=== PATIENT | female | born 1955 | race Caucasian/White ===

== ENCOUNTER 2017-04-26 10:57 | Observation (INO) | payer OTHER ==
[~2017-04-26] VITALS: Ht 152.4 cm; Wt 83.1 kg
[2017-04-26] VITALS (9 sets, daily range): BP systolic 93–167; BP diastolic 62–94; PULSE 65–69; TEMP 36.6–36.9; O2SAT 93–98; Ht 152.4 cm; Wt 83.1 kg
[~2017-04-26 10:57] MED LIST: ALBUAER19 INH; ALPR1TAB3 PO; AMIT10TA6 PO; ASPI81TA28 PO; CARV6.252 PO; CLX20 PO; LEVE750T PO; LPT/40 PO; MRLP17 PO; PANT40TA PO; ZNTT/150 PO
[2017-04-26] MEDS ORDERED: ASPIRIN 81 MG CHEW PO STA (11:20)
--- NOTE | 2017-04-26 11:21 | EMERGENCY ROOM VISIT NOTE ---
History Report prepared by Jamar: Mukund Anderson Under the Supervision of: Dr. Phu Ko M.D. First contact with patient: 11:13 Chief Complaint: CHEST PAIN Stated Complaint: CHEST PAIN History of Present Illness The patient is a 61 year old female who presents to the Emergency Room with complaints of intermittent chest pain that started yesterday. She says that she was not doing anything at the time, and notes no exertion during the onset of pain. The patient states that there is pain and pressure. She notes that she has had pain and pressure like this before, ever since she was diagnosed with heart problems and hypertension. The patient adds that she has never had a stent placement or cardiac catheterization. She notes that she has failed both of her stress tests. Dr. Gonzalez is her superintendent general. The patient says that she takes Aspirin daily, and took one prior to arrival this morning. She denies any abdominal pain. The patient is an ex-smoker. Source of History: patient Onset: Yesterday Position: chest Symptom Intensity: history of failed stress tests Quality: pressure Timing: intermittent Associated Symptoms: No abdominal pain Note: No other associated symptoms noted. Review of Systems See HPI for pertinent positives & negatives. A total of 10 systems reviewed and were otherwise negative. Past Medical & Surgical Medical Problems: (1) Anxiety (2) Cerebral hemorrhage (3) CVA (4) Depression (5) Hematoma (6) Hypertension Nos (7) Hypertensive urgency (8) Migraine (9) Pure Hypercholesterolem (10) Seizure (11) Stroke Family History Cancer Diabetes mellitus Heart disease Hypertension Seizures Social History Smoking Status: Never Smoker Alcohol Use: none Drug Use: none Marital Status: Occupation Status: disabled Current/Historical Medications Scheduled Alprazolam (Xanax), 1 MG PO QPM Amitriptyline HCl (Amitriptyline HCl), 10 MG PO DAILY Amlodipine (Norvasc), 2.5 MG PO DAILY Aspirin (Aspirin Ec), 81 MG PO DAILY Atorvastatin (Lipitor), 80 MG PO DAILY Carvedilol (Coreg), 6.25 MG PO BID Citalopram (Citalopram Hydrobromide), 20 MG PO DAILY Citalopram Hydrobromide (Citalopram Hydrobromide), 10 MG PO DAILY Levetiracetam (Keppra), 750 MG PO BID Metformin Ext Rel (Glucophage Ext Rel), 500 MG PO DAILY Pantoprazole (Protonix), 40 MG PO DAILY Scheduled PRN Ranitidine (Zantac), 150 MG PO BID PRN for Dyspepsia Allergies Coded Allergies: Cephalosporins (Unverified Allergy, Unknown, RASH AND HIVES, 04/26/17) Sulfa Antibiotics (Verified Allergy, Unknown, "SULFA DRUGS": UNKNOWN, ) Penicillins (Unverified Adverse Reaction, Unknown, 04/26/17) Physical Exam Vital Signs Date Time Temp Pulse Resp B/P (MAP) Pulse Ox O2 Delivery O2 Flow Rate FiO2 04/26/17 13:58 61 18 157/95 98 Room Air 04/26/17 12:51 69 18 150/95 94 Room Air 04/26/17 12:00 63 16 139/92 93 Room Air 04/26/17 11:51 62 16 158/97 93 Room Air 04/26/17 11:32 74 20 162/92 94 Room Air 04/26/17 11:32 95 Room Air 04/26/17 11:21 67 04/26/17 11:04 94 Room Air 04/26/17 11:04 36.5 63 18 199/101 94 Room Air Physical Exam GENERAL: Patient is a healthy-appearing well-nourished 61 year old female. HEAD: Normocephalic atraumatic EYES: Ocular movements intact pupils equal and react to light OROPHARYNX mucous membranes are moist no exudates present no erythema or edema present NECK: Supple no nuchal rigidity CHEST: Good equal expansion LUNGS: Clear and equal to auscultation CARDIAC: Normal S1 and S2 ABDOMEN: Soft nontender no guarding BACK: No CVA tenderness EXTREMITIES: No pain upon palpation normal muscle strength in all groups no clubbing cyanosis or edema NEURO: Patient is following commands and answering questions appropriately. Alert and oriented x3 Cranial Nerves 2-12 grossly intact Medical Decision & Procedures ER Provider Diagnostic Interpretation: Radiology results as stated below per my review and radiologist interpretation: CHEST ONE VIEW PORTABLE HISTORY: Atypical CHEST PAIN COMPARISON: Chest 02/21/2016. FINDINGS: The lungs are clear. Cardiac silhouette is normal in size. No pleural effusions. No pneumothorax. IMPRESSION: No acute process. Electronically signed by: Beto Eckert M.D. 04/26/2017 12:22 PM Dictated Date/Time: 04/26/2017 12:22 PM CHEST CTA for PULMONARY ARTERIES CT DOSE: 458.86 mGy.cm HISTORY: Atypical chest pain. TECHNIQUE: Multiaxial CT images of the chest were performed following the intravenous administration of contrast to evaluate the pulmonary arteries. Maximal intensity projection images were also obtained. A dose lowering technique was utilized adhering to the principles of ALARA. COMPARISON STUDY: None. FINDINGS: The visualized liver, spleen, and adrenal glands are unremarkable. No pleural or pericardial effusions. 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 No mediastinal or hilar lymphadenopathy. The heart is normal in size. No acute fractures within the visualized osseous structures. No pneumothorax. The central airways are patent. A 4 mm nodule within the right lower lobe on image 54. Otherwise, the lungs are clear. Normal caliber thoracic aorta with no evidence for dissection. No filling defects seen within the pulmonary arteries to suggest pulmonary embolus. IMPRESSION: 1. No evidence for pulmonary embolus. 2. A 4 mm indeterminate pulmonary nodule within the right lower lobe. Please refer to the chart below for recommended follow-up. Please refer to below summary of Fleischner criteria recommendations for follow-up of incidental CT nodules (Jie Rios, Guidelines for management of small pulmonary nodules detected on CT scans: A statement from the Fleischner Society, Radiology 237: [phone].) SOLID NODULES Solitary nodule size: <6 mm * Low risk patients: no follow-up needed * high risk patients: optional CT at 12 months Solitary nodule size: 6-8 mm * Low risk patients: follow-up at 6-12 months, then consider further follow-up at 18-24 months * high risk patients: initial follow-up CT at 6-12 months and then at 18-24 months if no change Solitary nodule size: >8 mm * either low or high risk patients - consider follow-up CT at 3 months, and/or CT-PET, and/or biopsy Multiple nodules size: <6 mm * Low risk patients: no routine follow-up * high risk patients: optional CT at 12 months Multiple nodules size: 6-8 mm * Low risk patients: follow-up at 3-6 months, then consider further follow-up at 18-24 months * high risk patients: follow-up at 3-6 months, then at 18-24 months if no change Multiple nodules size: >8 mm * Low risk patients: follow-up at 3-6 months, then consider further follow-up at 18-24 months * high risk patients: follow-up at 3-6 months, then at 18-24 months if no change Note: newly detected indeterminate nodule in persons 35 years of age or older. * Low risk patients: minimal or absent history of smoking and/or other known risk factors * high risk patients: history of smoking or of other known risk factors (e.g. first degree relative with lung cancer, or exposure to asbestos, radon, uranium) * if a nodule up to 8 mm is partly solid or is ground glass further follow-up is required after 24 months to exclude possible slow growing adenocarcinoma (DANNI) SUBSOLID NODULES Solitary pure ground-glass nodule * nodule size <6 mm - no CT follow-up required * nodule size >=6 mm - follow-up CT at 6-12 months, then every 2 years until 5 years Solitary part-solid nodule * nodule size <6 mm - no CT follow-up required * nodule size >=6 mm - follow-up CT at 3-6 months. If unchanged, and solid component remains <6 mm, then annual follow-up for 5 years Multiple subsolid nodules * nodule size <6 mm - follow-up CT at 3-6 months, consider further follow-up at 2 and 4 years if stable * nodule size >=6 mm - follow-up CT at 3-6 months, subsequent management based on the most suspicious nodule(s) Electronically signed by: Beto Eckert M.D. 04/26/2017 12:53 PM Dictated Date/Time: 04/26/2017 12:48 PM Laboratory Results 04/26/17 11:41 Red Blood Count 4.77, Mean Corpuscular Volume 90.6, Mean Corpuscular Hemoglobin 29.1, Mean Corpuscular Hemoglobin Concent 32.2, Mean Platelet Volume 10.7, Neutrophils (%) (Auto) 60.1, Lymphocytes (%) (Auto) 30.4, Monocytes (%) (Auto) 6.7, Eosinophils (%) (Auto) 2.2, Basophils (%) (Auto) 0.4, Neutrophils # (Auto) 5.57, Lymphocytes # (Auto) 2.82, Monocytes # (Auto) 0.62, Eosinophils # (Auto) 0.20, Basophils # (Auto) 0.04 04/26/17 11:41 Test 04/26/17 11:41 04/26/17 11:50 White Blood Count 9.27 K/uL (4.8-10.8) Red Blood Count 4.77 M/uL (4.2-5.4) Hemoglobin 13.9 g/dL (12.0-16.0) Hematocrit 43.2 % (37-47) Mean Corpuscular Volume 90.6 fL (80-100) Mean Corpuscular Hemoglobin 29.1 pg (25-34) Mean Corpuscular Hemoglobin Concent 32.2 g/dl (32-36) Platelet Count 274 K/uL (130-400) Mean Platelet Volume 10.7 fL (7.4-10.4) Neutrophils (%) (Auto) 60.1 % Lymphocytes (%) (Auto) 30.4 % Monocytes (%) (Auto) 6.7 % Eosinophils (%) (Auto) 2.2 % Basophils (%) (Auto) 0.4 % Neutrophils # (Auto) 5.57 K/uL (1.4-6.5) Lymphocytes # (Auto) 2.82 K/uL (1.2-3.4) Monocytes # (Auto) 0.62 K/uL (0.11-0.59) Eosinophils # (Auto) 0.20 K/uL (0-0.5) Basophils # (Auto) 0.04 K/uL (0-0.2) RDW Standard Deviation 43.0 fL (36.4-46.3) RDW Coefficient of Variation 13.0 % (11.5-14.5) Immature Granulocyte % (Auto) 0.2 % Immature Granulocyte # (Auto) 0.02 K/uL (0.00-0.02) Est Creatinine Clear Calc Drug Dose 67.1 ml/min Estimated GFR () 87.0 Estimated GFR (Non- 75.0 BUN/Creatinine Ratio 15.3 (10-20) Calcium Level 9.0 mg/dl (8.5-10.1) Total Bilirubin 0.4 mg/dl (0.2-1) Direct Bilirubin < 0.1 mg/dl (0-0.2) Aspartate Amino Transf (AST/SGOT) 21 U/L (15-37) Alanine Aminotransferase (ALT/SGPT) 35 U/L (12-78) Alkaline Phosphatase 186 U/L (45-117) Total Creatine Kinase 61 U/L (26-192) Creatine Kinase MB < 0.5 ng/ml (0.5-3.6) Creatine Kinase MB Ratio (0-3.0) Troponin I < 0.015 ng/ml (0-0.045) Total Protein 8.5 gm/dl (6.4-8.2) Albumin 3.6 gm/dl (3.4-5.0) Lipase 159 U/L (73-393) Bedside Hemoglobin 14.3 g/dl (12.0-16.0) Bedside Hematocrit 42 % (37-47) Bedside D-Dimer > 450 ng/mlFEU (0-450) Bedside Sodium 140 mEq/L (135-144) Bedside Potassium 4.1 mEq/L (3.3-5.0) Bedside Chloride 103 mEq/L (101-112) Bedside Total CO2 28 mEq/l (24-31) Anion Gap 14.0 mmol/L (16-25) Bedside Blood Urea Nitrogen 13 mg/dl (7-18) Bedside Creatinine 0.8 mg/dl (0.6-1.3) Bedside Glucose (other) 97 mg/dl (70-99) Bedside Ionized Calcium (Beena) 1.14 mmol/l (1.12-1.32) Labs reviewed by ED physician. Medications Administered Medications (Trade) Dose Ordered Sig/Gay Route Start Time Stop Time Status Last Admin Dose Admin Nitroglycerin (Nitrostat Tab) 0.4 mg Q5M PRN SL 04/26/17 11:30 05/26/17 11:29 04/26/17 11:50 0.4 MG Aspirin (Aspirin Chew) 324 mg NOW STAT PO 04/26/17 11:20 04/26/17 11:23 DC 04/26/17 11:31 324 MG Nitroglycerin (Nitroglycerin 2% Oint) 1 inch Postcron-MED ONCE .ROUTE 04/26/17 11:58 04/26/17 11:59 DC 04/26/17 12:19 1 INCH ECG Indication: chest pain Rate (beats per minute): 61 Rhythm: sinus rhythm Findings: 1st degree AV block, T-wave inversion (Anterior) ED Course 1114: Past medical records reviewed. The patient was evaluated in room C3. A complete history and physical examination was performed. 1120: Ordered Aspirin Chew 324 mg PO, Nitrostat Tab 0.4 mg SL PRN. 1156: Ordered Nitroglycerin 2% Oint 1 inch EXT. 1358: Upon reexamination the patient is resting. I discussed results and treatment plan with the patient. She verbalizes agreement and understanding. The patient will be evaluated for further management. 1400: I discussed the patient's case with Dr. Dr. David Bello mobile home installer, he has agreed to evaluate the patient for further management and care. Medical Decision Differential diagnosis: Etiologies such as cardiac ischemia, aortic dissection, pulmonary embolism, pneumonia, pneumothorax, musculoskeletal, infections, pericarditis, myocarditis , esophageal rupture, gastrointestinal, as well as others were entertained. This is a 61-year-old female who presents emergency department complaining of chest pain as well as hypertension. The patient's blood pressure is in excess of 200 systolically. For this reason she was given nitroglycerin as well as aspirin in the emergency department. Repeat examination revealed improvement patient's symptoms. Her she has a normal CK-MB troponin as well as EKG. I do feel the patient can be admitted to the hospitalist service. She was given Nitropaste. Patient was in agreement with the treatment plan. Medication Reconcilliation Current Medication List: was personally reviewed by me Blood Pressure Screening Patient's blood pressure: Elevated blood pressure Blood pressure disposition: Elevated BP felt to be situational Consults Time Called: 135 Consulting Physician: Dr. David Bello mobile home installer Returned Call: 1400 I discussed the patient's case with Dr. Dr. David Bello mobile home installer, he has agreed to evaluate the patient for further management and care. Impression Primary Impression: Chest pain Additional Impression: Hypertensive urgency Scribe Attestation The scribe's documentation has been prepared under my direction and personally reviewed by me in its entirety. I confirm that the note above accurately reflects all work, treatment, procedures, and medical decision making performed by me. Departure Information Dispostion Being Evaluated By Hospitalist Referrals Anthony Garay III, M.D. (PCP) Patient Instructions My [facility] Problem Qualifiers Primary Impression: Chest pain Chest pain type: unspecified Qualified Codes: R07.9 - Chest pain, unspecified
[2017-04-26] MEDS ORDERED: AMT10 PO ×2 (11:25→15:22)
[2017-04-26] MEDS ORDERED: ATOR-26 PO (11:25)
[2017-04-26] MEDS ORDERED: CITA10TA4 PO (11:25)
[2017-04-26] MEDS ORDERED: AMLO2.5T PO (11:25)
[2017-04-26] MEDS ORDERED: METFTAB PO (11:25)
[2017-04-26] MEDS ORDERED: CLX20 PO (11:25)
[2017-04-26] MEDS: NITROGLYCERIN 0.4 MG SL PER TAB CHARGE SL PRN ×2 (11:32→11:50)
[2017-04-26] MEDS ORDERED: NITROGLYCERIN OINT 2% 1GM PACKET EXT STA (11:56)
[2017-04-26] MEDS ORDERED: NITROGLYCERIN OINT 2% 1GM PACKET ONE (11:58)
[2017-04-26 12:03] LABS: BASO % 0.4 %; BASO ABS # 0.04 K/uL (0-0.2); COMPLETE YES; EOS % 2.2 %; HEMATOCRIT 43.2 % (37-47); IG% 0.2 %; LYMPH % 30.4 %; LYMPH ABS # 2.82 K/uL (1.2-3.4); MEAN CELL VOLUME 90.6 fL (80-100); MEAN CORPUSCULAR HEMOGLOBIN 29.1 pg (25-34); MEAN CORPUSCULAR HGB CONC 32.2 g/dl (32-36); MEAN PLATELET VOLUME 10.7 fL (7.4-10.4); MONO % 6.7 %; NEUT % 60.1 %; PLATELET COUNT 274 K/uL (130-400); RED BLOOD COUNT 4.77 M/uL (4.2-5.4); WHITE BLOOD COUNT 9.27 K/uL (4.8-10.8)
[2017-04-26 12:05] LABS: ISTAT CREATININE 0.8 mg/dl (0.6-1.3); ISTAT HEMOGLOBIN 14.3 g/dl (12.0-16.0); ISTAT IONIZED CALCIUM 1.14 mmol/l (1.12-1.32)
[2017-04-26 12:11] LABS: ALT/SGPT 35 U/L (12-78); AST/SGOT 21 U/L (15-37); BLOOD UREA NITROGEN 13 mg/dl (7-18); BUN/CREATININE RATIO 15.3 (10-20); CARBON DIOXIDE 29 mmol/L (21-32); CHLORIDE 103 mmol/L (98-107); CREATININE 0.83 mg/dl (0.60-1.20); GLUCOSE 100 mg/dl (70-99); SODIUM 139 mmol/L (136-145)
[2017-04-26 12:16] LABS: ALKALINE PHOSPHATASE 186 U/L (45-117)
--- NOTE | 2017-04-26 12:24 | DIAGNOSTIC IMAGING REPORT ---
CHEST ONE VIEW PORTABLE HISTORY: Atypical CHEST PAIN COMPARISON: Chest 02/21/2016. FINDINGS: The lungs are clear. Cardiac silhouette is normal in size. No pleural effusions. No pneumothorax. IMPRESSION: No acute process. Electronically signed by: Beto Eckert M.D. 04/26/2017 12:22 PM Dictated Date/Time: 04/26/2017 12:22 PM
[2017-04-26] MEDS ORDERED: OPTIRAY 320 IV PRN (12:30)
--- NOTE | 2017-04-26 12:55 | DIAGNOSTIC IMAGING REPORT ---
CHEST CTA for PULMONARY ARTERIES CT DOSE: 458.86 mGy.cm HISTORY: Atypical chest pain. TECHNIQUE: Multiaxial CT images of the chest were performed following the intravenous administration of contrast to evaluate the pulmonary arteries. Maximal intensity projection images were also obtained. A dose lowering technique was utilized adhering to the principles of ALARA. COMPARISON STUDY: None. FINDINGS: The visualized liver, spleen, and adrenal glands are unremarkable. No pleural or pericardial effusions. 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 No mediastinal or hilar lymphadenopathy. The heart is normal in size. No acute fractures within the visualized osseous structures. No pneumothorax. The central airways are patent. A 4 mm nodule within the right lower lobe on image 54. Otherwise, the lungs are clear. Normal caliber thoracic aorta with no evidence for dissection. No filling defects seen within the pulmonary arteries to suggest pulmonary embolus. IMPRESSION: 1. No evidence for pulmonary embolus. 2. A 4 mm indeterminate pulmonary nodule within the right lower lobe. Please refer to the chart below for recommended follow-up. Please refer to below summary of Fleischner criteria recommendations for follow-up of incidental CT nodules (Jie Rios, Guidelines for management of small pulmonary nodules detected on CT scans: A statement from the Fleischner Society, Radiology 237: [phone].) SOLID NODULES Solitary nodule size: <6 mm * Low risk patients: no follow-up needed * high risk patients: optional CT at 12 months Solitary nodule size: 6-8 mm * Low risk patients: follow-up at 6-12 months, then consider further follow-up at 18-24 months * high risk patients: initial follow-up CT at 6-12 months and then at 18-24 months if no change Solitary nodule size: >8 mm * either low or high risk patients - consider follow-up CT at 3 months, and/or CT-PET, and/or biopsy Multiple nodules size: <6 mm * Low risk patients: no routine follow-up * high risk patients: optional CT at 12 months Multiple nodules size: 6-8 mm * Low risk patients: follow-up at 3-6 months, then consider further follow-up at 18-24 months * high risk patients: follow-up at 3-6 months, then at 18-24 months if no change Multiple nodules size: >8 mm * Low risk patients: follow-up at 3-6 months, then consider further follow-up at 18-24 months * high risk patients: follow-up at 3-6 months, then at 18-24 months if no change Note: newly detected indeterminate nodule in persons 35 years of age or older. * Low risk patients: minimal or absent history of smoking and/or other known risk factors * high risk patients: history of smoking or of other known risk factors (e.g. first degree relative with lung cancer, or exposure to asbestos, radon, uranium) * if a nodule up to 8 mm is partly solid or is ground glass further follow-up is required after 24 months to exclude possible slow growing adenocarcinoma (DANNI) SUBSOLID NODULES Solitary pure ground-glass nodule * nodule size <6 mm - no CT follow-up required * nodule size >=6 mm - follow-up CT at 6-12 months, then every 2 years until 5 years Solitary part-solid nodule * nodule size <6 mm - no CT follow-up required * nodule size >=6 mm - follow-up CT at 3-6 months. If unchanged, and solid component remains <6 mm, then annual follow-up for 5 years Multiple subsolid nodules * nodule size <6 mm - follow-up CT at 3-6 months, consider further follow-up at 2 and 4 years if stable * nodule size >=6 mm - follow-up CT at 3-6 months, subsequent management based on the most suspicious nodule(s) Electronically signed by: Beto Eckert M.D. 04/26/2017 12:53 PM Dictated Date/Time: 04/26/2017 12:48 PM
[2017-04-26] MEDS ORDERED: ONDANSETRON INJ 2 MG/ML 2 ML VIAL IV PRN (15:00)
[2017-04-26] MEDS ORDERED: ALUMINUM/MAGNESIUM/SIMETH (MAALOX MAX) 30 ML UDC PO PRN (15:00)
[2017-04-26] MEDS ORDERED: RANITIDINE HCL 150 MG TAB PO PRN (15:00)
[2017-04-26] MEDS ORDERED: MoRPHine SULFATE 2 MG/ML CARP IV PRN (15:00)
[2017-04-26] MEDS ORDERED: ACETAMINOPHEN 325 MG TAB PO PRN (15:00)
[2017-04-26] MEDS ORDERED: NITROGLYCERIN 0.4 MG SL PER TAB CHARGE SL PRN (15:00)
[2017-04-26] MEDS ORDERED: LORA10TA5 PO (15:22)
[2017-04-26] MEDS ORDERED: ALPR1TAB3 PO (15:22)
[2017-04-26] MEDS ORDERED: VNTHFA/IN INH (15:22)
[2017-04-26] MEDS ORDERED: GLUCAGON FOR INJ 1 MG VIAL SQ PRN (15:30)
[2017-04-26] MEDS ORDERED: GLUCOSE 40% GEL 15 GM TUBE PO PRN (15:30)
[2017-04-26] MEDS ORDERED: ALPRAZOLAM 0.5 MG TAB PO PRN (15:30)
[2017-04-26] MEDS ORDERED: GLUCOSE 10 TABS/TUBE PO PRN (15:30)
[2017-04-26] MEDS ORDERED: ALBUTEROL HFA 8 GM INHALER INH PRN (15:30)
[2017-04-26] MEDS ORDERED: DEXTROSE 50% 50 ML SYR IV PRN (15:30)
--- NOTE | 2017-04-26 16:01 | HISTORY & PHYSICAL EXAMINATION ---
DATE OF ADMISSION: 04/26/2017 CHIEF COMPLAINT: Chest pain. HISTORY OF PRESENT ILLNESS: This is a 61-year-old female with past medical history significant for history of hyperlipidemia, tobacco abuse, status post carotid endarterectomy and post-procedure was complicated by left parietotemporal internal hemorrhage that was likely due to reperfusion injury and underwent left temporoparietal craniotomy, evacuation of hematoma and microdissection at that time and postprocedure, she had developed seizures and she is on medications for seizures at this time. Past medical history is also significant for GERD, depression with anxiety, peripheral vascular disease with claudication, obstructive sleep apnea on CPAP, acute gout, type 2 diabetes, currently presents with chest pain. The patient says since yesterday she is getting on and off chest pressure like feeling, squeezing like feeling, about 7/8 in severity, no radiation to hand or neck or shoulder, no association with sweating or nausea or dizziness. It was on and off and even in the morning when she woke up she again had this chest squeezing pressure like feeling about a 5/10 in severity. At that time, she decided to come to the ER. Currently, patient is on nitro paste, symptoms have almost gone, hemodynamically stable. Denies any headaches. No blurred visions. No runny nose. No sore throat, no difficulty swallowing. No shortness of breath, no cough, no fever, no chills, no abdominal pain. No skin rash. Normal bowel and bladder movements. Appetite is okay. Ambulatory status is fine and the patient denies any chest pain or shortness of breath while she is ambulating or climbing steps. The patient had similar kind of chest pressure last year and thought to be from hypertensive urgency and she underwent stress echocardiogram as outpatient, which she could not complete as could not reach the target heart rate. ALLERGIES: PENICILLIN, SULFA ANTIBIOTICS, AND CEPHALOSPORINS. PAST MEDICAL HISTORY: As mentioned above. PAST SURGICAL HISTORY: C-sections, biopsy of the breast, colonoscopy with polypectomy, dental surgeries, left parietal and temporal hemorrhage evacuation in 2010, tonsillectomy, left carotid endarterectomy in September 2010 with patch, vaginal hysterectomy in 1992. MEDICATIONS: The patient currently on metformin XR 500 mg p.o. daily, Coreg 6.25 mg p.o. b.i.d., aspirin 81 mg p.o. daily, citalopram 20 mg p.o. daily, amlodipine 2.5 mg p.o. daily, Xanax 1 mg p.o. at bedtime p.r.n., Protonix 40 mg p.o. daily, Zantac 150 mg p.o. b.i.d. p.r.n., amitriptyline 20 mg p.o. at bedtime, Keppra 750 mg p.o. b.i.d., Lipitor 80 mg p.o. daily, albuterol 2 puffs 4 times daily, Claritin 10 mg p.o. daily, and MiraLax as needed. FAMILY HISTORY: Significant for mother had dementia. Father has diabetes. SOCIAL HISTORY: Former smoker, quit in 2010, prior to that smoked 1 pack a day for 21 years. No alcohol use. No drug use. . REVIEW OF SYMPTOMS: As per HPI. Rest of systems negative. PHYSICAL EXAMINATION: GENERAL: The patient is of moderate build, not in distress. VITAL SIGNS: Temperature 36.5, pulse 61, respiratory rate 18, blood pressure 157/95, oxygen 98% on room air. HEENT: No pallor, no icterus. Pupils equal, round and reactive to light. NECK: No JVD, no neck masses, no carotid bruits. CARDIOVASCULAR: S1, S2 heard, regular rate and rhythm, no murmur, no gallop. RESPIRATORY SYSTEM: Clear to auscultation bilaterally. No wheezing, no crackles. ABDOMEN: Soft, bowel sounds present. Nontender. No distention. CENTRAL NERVOUS SYSTEM: Cranial nerves II-XII grossly intact, nonfocal. EXTREMITIES: No edema, no erythema. LABORATORY DATA: Sodium 139, potassium 4, chloride 103, bicarbonate 29, BUN 13, creatinine 0.8, serum glucose 100, calcium 9. Total bilirubin 0.4, direct bilirubin less than 0.1, AST 21, ALT 35, alkaline phosphatase 186, total creatinine kinase 61. Troponin 1 less than 0.015. Lipase 159. Point of care D-dimer greater than 450. WBC 9.2, hemoglobin 13.9, hematocrit 43.2, and platelets 274. IMAGING DATA: CT of the chest - no evidence of pulmonary embolus, a 4 mm indeterminate pulmonary nodule within the right lower lobe. EKG unavailable at this time. ASSESSMENT AND PLAN: This is a 61-year-old female who presents with chest pressure. 1. Chest pressure. Significant risk factors with peripheral vascular disease, hypertension and diabetes and age. Initial troponin negative. We will get an EKG. Will follow the serial cardiac enzymes, echocardiogram and cardiology consult. Close monitor in the tele floor. 2. History of diabetes, on metformin which we will hold. We will place on insulin sliding scale. Follow hemoglobin A1c levels. 3. Hypertension. The patient was having elevated blood pressure in the ER. With the nitro paste, blood pressure is controlled. We will continue her home medication of amlodipine and Coreg and continue nitro paste for now and monitor the blood pressure and adjust medications as needed. 4. History of anxiety and depression. Continue citalopram and Xanax p.r.n. 5. Gastroesophageal reflux disease. Continue Protonix and Zantac. 6. History of epilepsy. Continue Keppra. 7. Hyperlipidemia. Continue statin. 8. Obstructive sleep apnea. Continue CPAP. 9. Deep vein thrombosis prophylaxis, SCDs for now. 10. Disposition: Observation on tele floor. Expect to discharge home and follow with her family doctor. Level 1 full code. MTDD
[2017-04-26] MEDS: INSULIN ASPART 100 UNITS/ML 3 ML PEN SC SCH ×2 (16:35→20:29)
[2017-04-26] MEDS: NITROGLYCERIN OINT 2% 1GM PACKET EXT SCH ×2 (18:27→23:29)
[2017-04-26] MEDS ORDERED: IV FLUIDS COMPLETED PRN (18:30)
[2017-04-26] MEDS: CARVEDILOL 6.25 MG TAB PO SCH (20:28)
[2017-04-26] MEDS: LEVETIRACETAM 250 MG TAB PO SCH (20:28)
[2017-04-27 03:49] VITALS: BP 98/64; PULSE 62; TEMP 36.7; O2SAT 92
[2017-04-27] MEDS: NITROGLYCERIN OINT 2% 1GM PACKET EXT SCH (06:37)
[2017-04-27 07:42] LABS: BASO % 0.4 %; BASO ABS # 0.04 K/uL (0-0.2); COMPLETE YES; EOS % 2.3 %; HEMATOCRIT 41.7 % (37-47); IG% 0.2 %; LYMPH % 29.5 %; LYMPH ABS # 2.77 K/uL (1.2-3.4); MEAN CELL VOLUME 90.5 fL (80-100); MEAN CORPUSCULAR HEMOGLOBIN 28.6 pg (25-34); MEAN CORPUSCULAR HGB CONC 31.7 g/dl (32-36); MEAN PLATELET VOLUME 10.6 fL (7.4-10.4); MONO % 6.8 %; NEUT % 60.8 %; PLATELET COUNT 263 K/uL (130-400); RED BLOOD COUNT 4.61 M/uL (4.2-5.4); WHITE BLOOD COUNT 9.38 K/uL (4.8-10.8)
[2017-04-27 07:58] VITALS: BP 113/70; PULSE 63; TEMP 36.6; O2SAT 92
[2017-04-27 08:15] LABS: BUN/CREATININE RATIO 17.9 (10-20); CALCIUM 9.4 mg/dl (8.5-10.1); CREATININE 0.81 mg/dl (0.60-1.20); MAGNESIUM 2.3 mg/dl (1.8-2.4); POTASSIUM 3.8 mmol/L (3.5-5.1)
[2017-04-27 08:18] LABS: CHOLESTEROL/HDL RATIO 4.2
[2017-04-27 08:21] LABS: ESTIMATED AVERAGE GLUCOSE 134 mg/dl; HA1C FLAG Normal (Normal)
[2017-04-27] MEDS: INSULIN ASPART 100 UNITS/ML 3 ML PEN SC SCH ×2 (08:26→11:46)
[2017-04-27] MEDS: LEVETIRACETAM 250 MG TAB PO SCH (08:27)
[2017-04-27] MEDS: CARVEDILOL 6.25 MG TAB PO SCH (08:28)
[2017-04-27] MEDS ORDERED: AMLODIPINE BESYLATE 5 MG TAB PO SCH (09:00)
[2017-04-27] MEDS ORDERED: LORATADINE 10 MG TAB PO SCH (09:00)
[2017-04-27] MEDS ORDERED: PANTOprazole SOD 40 MG TAB PO SCH (09:00)
[2017-04-27] MEDS ORDERED: ASPIRIN 81 MG ECTAB PO SCH (09:00)
[2017-04-27] MEDS ORDERED: AMITRIPTYLINE HCL 10 MG TAB PO SCH (09:00)
[2017-04-27] MEDS ORDERED: ATORVASTATIN 40 MG TAB PO SCH (09:00)
[2017-04-27] MEDS ORDERED: CITALOPRAM 20 MG TAB PO SCH (09:00)
--- NOTE | 2017-04-27 09:11 | ECHOCARDIOGRAM REPORT ---
*NOTICE TO RECEIVING [employer] This information is strictly Confidential and protected under [place] law. [place] law prohibits you from making any further disclosure of this information unless further disclosure is expressly permitted by the written consent of the person to whom it pertains or is authorized by law. A general authorization for the release of medical or other information is not sufficient for this purpose. Hospital accepts no responsibility if the information is made available to any other person, INCLUDING THE PATIENT. Interpretation Summary * Name: GUIDO FLOWERS Study Date: 04/27/2017 06:08 AM BP: 98/64 mmHg * Patient Location: C.2T\S\E218\S\1 HR: 65 * : 1955 (M/d/yyyy) Gender: Female Height: 60 in * Age: 61 yrs Ethnicity: [place] Weight: 187 lb * Ordering Physician: Devan Hernandez * Referring Physician: Self, Referred * Performed By: Raysa De Santiago [facility] * * Reason For Study: CHEST PAIN * BSA: 1.8 m2 * -- Conclusions -- * Aortic valve sclerosis mild, without significant aortic valvular stenosis. * The left ventricular wall motion is normal. * The LV Ejection Fraction = 60-65%. * There is mild concentric left ventricular hypertrophy. * Grade I diastolic dysfunction, (abnormal relaxation pattern). * There is no significant valvular heart disease. Procedure Details * A complete two-dimensional transthoracic echocardiogram was performed (2D, M-mode, Doppler and color flow Doppler). * The study was technically difficult. * A contrast injection of Definity was performed to improve assessment of LV function. * Contrast was injected into an intravenous site in the left arm. * One vial of Definity ultrasound contrast was diluted in normal saline to a total volume of 10 ml. A total of '2' ml of solution was administered during imaging. * Lot # [id number] of Definity utilized for procedure. * Expiration date MAY 18. * The attending nurse who injected the contrast agent was LEIA ARRINGTON RN. Left Ventricle * The left ventricle is normal in size. * There is mild concentric left ventricular hypertrophy. * Left ventricular systolic function is normal. * Ejection Fraction = 60-65%. * The left ventricular wall motion is normal. Right Ventricle * The right ventricle is normal size. * The right ventricular systolic function is normal as assessed by tricuspid annular plane systolic excursion (TAPSE) (normal >1.5 cm). Atria * The left atrial size is normal. * Right atrial size is normal. * There is no evidence of atrial septal defect, but resolution does not allow assessment for a patent foramen ovale. Mitral Valve * The mitral valve is normal. * There is no mitral valve stenosis. * Significant mitral regurgitation is absent. Tricuspid Valve * The tricuspid valve is normal. * There is no tricuspid stenosis. * Significant tricuspid regurgitation is absent. * Doppler findings do not suggest pulmonary hypertension. Aortic Valve * The aortic valve is trileaflet. * Aortic valve sclerosis mild, without significant aortic valvular stenosis. * Aortic stenosis is absent. * There is no significant aortic regurgitation. Pulmonic Valve * The pulmonary valve is not well seen, but the Doppler examination is normal without significant regurgitation or stenosis. Great Vessels * The aortic root and proximal ascending aorta are normal sized. Pericardium/Pleural * There is no pericardial effusion. Great Vessels * Normal inferior vena cava diameter and respiratory variation suggests normal central venous pressure. Left Ventricular Diastolic Function * Grade I diastolic dysfunction, (abnormal relaxation pattern). MMode 2D Measurements and Calculations IVSd 1.3 cm IVSs 1.5 cm LVIDd 4.7 cm LVIDs 3.1 cm LVPWd 1.2 cm LVPWs 1.2 cm IVS/LVPW 1.1 FS 32.5 % EDV(Teich) 100.4 ml ESV(Teich) 39.2 ml EF(Teich) 60.9 % EDV(cubed) 101.2 ml ESV(cubed) 31.1 ml EF(cubed) 69.3 % % IVS thick 15.2 % % LVPW thick 3.1 % LV mass(C)d 224.3 grams LV mass(C)dI 123.6 grams/m\S\2 LV mass(C)s 145.9 grams LV mass(C)sI 80.4 grams/m\S\2 SV(Teich) 61.1 ml SI(Teich) 33.7 ml/m\S\2 SV(cubed) 70.1 ml SI(cubed) 38.7 ml/m\S\2 Ao root diam 2.7 cm Ao root area 5.8 cm\S\2 LA dimension 2.9 cm LA/Ao 1.1 LVOT diam 2.0 cm LVOT area 3.1 cm\S\2 LVAd ap4 27.0 cm\S\2 LVLd ap4 6.9 cm EDV(MOD-sp4) 86.7 ml EDV(sp4-el) 89.5 ml LVAs ap4 15.9 cm\S\2 LVLs ap4 5.7 cm ESV(MOD-sp4) 36.2 ml ESV(sp4-el) 38.2 ml EF(MOD-sp4) 58.3 % EF(sp4-el) 57.3 % LVAd ap2 16.7 cm\S\2 LVLd ap2 6.4 cm EDV(MOD-sp2) 35.9 ml EDV(sp2-el) 37.4 ml LVAs ap2 8.1 cm\S\2 LVLs ap2 4.7 cm ESV(MOD-sp2) 13.5 ml ESV(sp2-el) 12.0 ml EF(MOD-sp2) 62.5 % EF(sp2-el) 67.9 % LVLd %diff -8.97 % EDV(MOD-bp) 56.4 ml LVLs %diff -20.58 % ESV(MOD-bp) 23.0 ml EF(MOD-bp) 59.2 % SV(MOD-sp4) 50.5 ml SI(MOD-sp4) 27.9 ml/m\S\2 SV(MOD-sp2) 22.4 ml SI(MOD-sp2) 12.4 ml/m\S\2 SV(MOD-bp) 33.4 ml SI(MOD-bp) 18.4 ml/m\S\2 SV(sp4-el) 51.3 ml SI(sp4-el) 28.3 ml/m\S\2 SV(sp2-el) 25.4 ml SI(sp2-el) 14.0 ml/m\S\2 Doppler Measurements and Calculations MV E max laquita 51.8 cm/sec MV A max laquita 80.9 cm/sec MV E/A 0.64 MV P1/2t max laquita 65.6 cm/sec MV P1/2t 72.0 msec MVA(P1/2t) 3.1 cm\S\2 MV dec slope 266.7 cm/sec\S\2 MV dec time 0.25 sec Ao V2 max 131.1 cm/sec Ao max PG 6.9 mmHg Ao max PG (full) 1.1 mmHg CARLOS(V,A) 2.8 cm\S\2 CARLOS(V,D) 2.8 cm\S\2 LV V1 max PG 5.8 mmHg LV V1 max 120.2 cm/sec PA V2 max 95.8 cm/sec PA max PG 3.7 mmHg PI max laquita 157.0 cm/sec PI max PG 9.9 mmHg PI dec slope 74.5 cm/sec\S\2 PI P1/2t 617.0 msec
[2017-04-27 11:59] VITALS: BP 107/71; PULSE 61; TEMP 36.9; O2SAT 95
[2017-04-27] MEDS ORDERED: DOBUTamine HCL 12.5 MG/ML 20 ML VIAL ONE (13:24)
[2017-04-27] MEDS ORDERED: METOPROLOL TARTRATE 1 MG/ML VIAL ONE (13:24)
[2017-04-27] MEDS ORDERED: ATROPINE SULFATE 0.1 MG/ML 5ML SYR ONE (13:25)
[2017-04-27] MEDS ORDERED: PERFLUTREN LIPID MICROSPHERE (DEFINITY) IV ONE (13:58)
--- NOTE | 2017-04-27 14:00 | Cardiology Consultation ---
Cardiology Consultation Date of Consultation: Apr 27, 2017 History of Present Illness Rina Alvarez is a 61 year old female seen in cardiology consultation per the request of Dr Hernandez for the evaluation of chest discomfort. The patient is well known to the undersigned as I follow her as an outpatient. She presented to the emergency room yesterday complaining of midline chest discomfort she noticed when she is laying in bed yesterday. It was between her breasts. She believes it first started on Thursday evening and subsequently resolved. She was brought to the emergency room she felt as if it perhaps Better with nitroglycerin but then she noted a significant headache. She was admitted to the telemetry floor. Serial cardiac enzymes have been negative. Her EKG reveals sinus rhythm with incomplete right bundle branch block morphology and ST segments that actually looked improved compared to when she had some mild ST changes in the lateral leads when she was admitted in January with high blood pressure. She states that she has had no additional chest discomfort overnight last night or this morning. Telemetry reveals stable sinus rhythm. Past Medical/Surgical History Problem List: Medical Problems: (1) Anxiety (2) Cerebral hemorrhage (3) CVA (4) Depression (5) Hematoma (6) Hypertension Nos (7) Hypertensive urgency (8) Migraine (9) Pure Hypercholesterolemia (10) Seizure (11) Stroke History Past Medical Surgical History: History of complete right carotid occlusion She underwent left carotid endarterectomy in September 2010 and postoperatively she developed left parietotemporal hematoma that was felt to be a postperfusion- related hemorrhage which required neurosurgical evacuation Hypertension Past seizures secondary to the intracranial hematoma Social History: Former smoker, having quit in 2010. Denies use. She is and lives with her Family History: Mother had dementia. Father diabetes Review Of Systems See above for pertinent positives & negatives. A total of 10 systems reviewed and were otherwise negative. Allergies Coded Allergies: Cephalosporins (Unverified Allergy, Unknown, RASH AND HIVES, 04/26/17) Sulfa Antibiotics (Verified Allergy, Unknown, "SULFA DRUGS": UNKNOWN, ) Penicillins (Unverified Adverse Reaction, Unknown, 04/26/17) Medications Reported Home Medications Medications Dose Route/Sig Max Daily Dose Days Date Category Ventolin Hfa (Albuterol) 200 Puffs/86800 Mcg Aers 2 Puffs INH Q6H PRN 04/26/17 Rx Claritin (Loratadine) 10 Mg Tab 10 Mg PO DAILY 04/26/17 Rx Amitriptyline HCl 10 Mg Tab 20 Mg PO DAILY 04/26/17 Rx Xanax (Alprazolam) 1 Mg Tab 1 Mg PO QPM PRN 04/26/17 Rx Glucophage Ext Rel (Metformin HCl) 500 Mg Tab 500 Mg PO DAILY 04/26/17 Reported Norvasc (Amlodipine Besylate) 2.5 Mg Tab 2.5 Mg PO DAILY 04/26/17 Reported Citalopram Hydrobromide (Citalopram) 20 Mg Tab 20 Mg PO DAILY 04/26/17 Reported Lipitor (Atorvastatin Calcium) 80 Mg Tab 80 Mg PO DAILY 04/26/17 Reported Protonix (Pantoprazole Sodium) 40 Mg Tab 40 Mg PO DAILY 04/11/15 Reported Aspirin Ec (Aspirin) 81 Mg Tab 81 Mg PO DAILY 04/11/15 Reported Coreg (Carvedilol) 6.25 Mg Tab 6.25 Mg PO BID 04/11/15 Reported Keppra (Levetiracetam) 750 Mg Tab 750 Mg PO BID 09/20/12 Reported Zantac (Ranitidine HCl) 150 Mg Tab 150 Mg PO BID PRN 11/20/10 Reported Physical Exam Vital Signs (Last 8hrs): Last 8 Hrs Date Time Temp Pulse Resp B/P (MAP) Pulse Ox O2 Delivery O2 Flow Rate FiO2 04/27/17 12:00 Room Air 04/27/17 11:59 36.9 61 18 107/71 (83) 95 Room Air 04/27/17 08:00 Room Air 04/27/17 07:58 36.6 63 18 113/70 (84) 92 Room Air General Appearance: Alert and Oriented x3. NAD. Head: Normocephalic Atraumatic. Eyes: PERRLA, EOMI, conjunctiva and sclera clear Neck: Supple. No carotid bruits noted. No JVD. No HJD. Respiratory: Breath sounds clear to auscultation bilaterally. No w/r/r. Cardiovascular: Reg rate and rhythm. S1 and S2 noted. No murmurs, rubs, gallops. PMI non displace. Abdomen: Normal bowel sounds, soft nontender. no abdominal bruits. Extremities: No edema, no clubbing or cyanosis. distal pulses 2/4 bilaterally. Neuro: No focal deficits. Psychiatric: Normal affect. Data Last Resulted 04/27/17 06:58 Red Blood Count 4.61, Mean Corpuscular Volume 90.5, Mean Corpuscular Hemoglobin 28.6, Mean Corpuscular Hemoglobin Concent 31.7, Mean Platelet Volume 10.6, Neutrophils (%) (Auto) 60.8, Lymphocytes (%) (Auto) 29.5, Monocytes (%) (Auto) 6.8, Eosinophils (%) (Auto) 2.3, Basophils (%) (Auto) 0.4, Neutrophils # (Auto) 5.69, Lymphocytes # (Auto) 2.77, Monocytes # (Auto) 0.64, Eosinophils # (Auto) 0.22, Basophils # (Auto) 0.04 Last Resulted 04/27/17 06:58 Past 24 Hours Test 04/26/17 22:44 04/27/17 06:58 Range/Units Creatine Kinase MB < 0.5 L < 0.5 L 0.5-3.6 ng/ml Creatine Kinase MB Ratio 0-3.0 Total Creatine Kinase 57 50 26-192 U/L Troponin I < 0.015 < 0.015 0-0.045 ng/ml EKG as noted in history of present illness Telemetry reviewed: Sinus rhythm Assessment & Plan Impression: 61-year-old female 1. Atypical chest discomfort 2. History of hypertension 3. History of dyslipidemia 4. History of cerebral vascular disease, with right carotid occlusion, and left carotid endarterectomy endoscopic biopsy post reperfusion hemorrhagic stroke requiring surgical evacuation in 2010 Discussion/recommendations: On deep palpation, I was able to reproduce the patient's presenting symptoms by palpating adjacent to the left side of her sternum. She does not remember lifting anything unusual. Her blood pressure was elevated when she resented to the emergency room, was normal on repeat measurements today. Resting echocardiogram revealed normal wall motion. She went on to have a dobutamine stress echocardiogram supervised by the undersigned. The formal report of this is pending. The patient did not reach target heart rate, but did have a hypertensive response to dobutamine, no symptoms suggestive of angina were reported. The EKG is negative for ischemia, and the stress wall motion was normal. Patient stable from my standpoint to return home on her prior medication regimen without change. Michoacano Gonzalez DO
--- NOTE | 2017-04-27 14:35 | Progress Note ---
Internal Med Progress Note Date of Service: Apr 27, 2017. Provider Documentation: SUBJECTIVE: resting comfortably no chest pain or sob no fevers no nausea OBJECTIVE: Vital Signs-as noted below Exam: General-alert and oriented. Not in distress ENT-Normal hearing Neck-no neck masses Lungs-CTA b/l no wheezing or crackles Heart-S1 and S2 heard. Regular rate and rhythm, no murmurs Abdomen-Soft Bowel sounds present no tenderness present no distension Extremities-No pedal edema no erythema Neuro-alert and awake moves extremities Lab data as noted below. ASSESSMENT & PLAN: : This is a 61-year-old female who presents with chest pressure. 1. Chest pressure. Significant risk factors with peripheral vascular disease, hypertension and diabetes and age. Initial troponin negative. We will get an EKG. Will follow the serial cardiac enzymes, echocardiogram and cardiology consult. Close monitor in the tele floor. serial ce and echo unremarkable s/p dobutamine stress test-unremarkable cardiology on board to d/c on home meds. 2. History of diabetes, on metformin which we will hold. We will place on insulin sliding scale. HBA1C 6.3. 3. Hypertension. was elevated in Er but currently stable. To d/c on home emds and f/u with pcp. 4. History of anxiety and depression. Continue citalopram and Xanax p.r.n. 5. Gastroesophageal reflux disease. Continue Protonix and Zantac. 6. History of epilepsy. Continue Keppra. 7. Hyperlipidemia. Continue statin. 8. Obstructive sleep apnea. Continue CPAP. 9. Deep vein thrombosis prophylaxis, SCDs 10. Disposition: will d/c home today Vital Signs: Date Time Temp Pulse Resp B/P (MAP) Pulse Ox O2 Delivery O2 Flow Rate FiO2 04/27/17 12:00 Room Air 04/27/17 11:59 36.9 61 18 107/71 (83) 95 Room Air 04/27/17 08:00 Room Air 04/27/17 07:58 36.6 63 18 113/70 (84) 92 Room Air 04/27/17 04:00 Room Air 04/27/17 03:49 36.7 62 18 98/64 (75) 92 Room Air 04/27/17 00:01 Room Air 04/26/17 23:45 36.9 68 18 111/67 (82) 94 Room Air 04/26/17 20:00 Room Air 04/26/17 19:40 36.6 66 18 152/89 (110) 93 Room Air 04/26/17 18:21 167/94 (118) 04/26/17 18:20 147/83 (104) 04/26/17 18:10 162/93 (116) 04/26/17 18:09 69 93/62 (72) 04/26/17 16:10 36.7 65 18 155/86 (109) 94 Room Air 04/26/17 16:03 64 18 158/84 98 04/26/17 15:30 95 Room Air 04/26/17 14:43 64 18 149/100 95 Room Air Lab Results: Results Past 24 Hours Test 04/26/17 16:19 04/26/17 20:12 04/26/17 22:44 04/27/17 06:44 Range/Units Bedside Glucose 85 106 105 70-90 mg/dl Total Creatine Kinase 57 26-192 U/L Creatine Kinase MB < 0.5 0.5-3.6 ng/ml Creatine Kinase MB Ratio 0-3.0 Troponin I < 0.015 0-0.045 ng/ml Test 04/27/17 06:58 04/27/17 11:05 Range/Units White Blood Count 9.38 4.8-10.8 K/uL Red Blood Count 4.61 4.2-5.4 M/uL Hemoglobin 13.2 12.0-16.0 g/dL Hematocrit 41.7 37-47 % Mean Corpuscular Volume 90.5 80-100 fL Mean Corpuscular Hemoglobin 28.6 25-34 pg Mean Corpuscular Hemoglobin Concent 31.7 32-36 g/dl Platelet Count 263 130-400 K/uL Mean Platelet Volume 10.6 7.4-10.4 fL Neutrophils (%) (Auto) 60.8 % Lymphocytes (%) (Auto) 29.5 % Monocytes (%) (Auto) 6.8 % Eosinophils (%) (Auto) 2.3 % Basophils (%) (Auto) 0.4 % Neutrophils # (Auto) 5.69 1.4-6.5 K/uL Lymphocytes # (Auto) 2.77 1.2-3.4 K/uL Monocytes # (Auto) 0.64 0.11-0.59 K/uL Eosinophils # (Auto) 0.22 0-0.5 K/uL Basophils # (Auto) 0.04 0-0.2 K/uL RDW Standard Deviation 43.3 36.4-46.3 fL RDW Coefficient of Variation 13.3 11.5-14.5 % Immature Granulocyte % (Auto) 0.2 % Immature Granulocyte # (Auto) 0.02 0.00-0.02 K/uL Sodium Level 136 136-145 mmol/L Potassium Level 3.8 3.5-5.1 mmol/L Chloride Level 99 98-107 mmol/L Carbon Dioxide Level 26 21-32 mmol/L Anion Gap 10.0 3-11 mmol/L Blood Urea Nitrogen 15 7-18 mg/dl Creatinine 0.81 0.60-1.20 mg/dl Est Creatinine Clear Calc Drug Dose 67.9 ml/min Estimated GFR () 89.6 Estimated GFR (Non- 77.3 BUN/Creatinine Ratio 17.9 10-20 Random Glucose 108 70-99 mg/dl Estimated Average Glucose 134 mg/dl Hemoglobin A1c 6.3 4.5-5.6 % Calcium Level 9.4 8.5-10.1 mg/dl Magnesium Level 2.3 1.8-2.4 mg/dl Total Creatine Kinase 50 26-192 U/L Creatine Kinase MB < 0.5 0.5-3.6 ng/ml Creatine Kinase MB Ratio 0-3.0 Troponin I < 0.015 0-0.045 ng/ml Triglycerides Level 210 0-150 mg/dl Cholesterol Level 172 0-200 mg/dl HDL Cholesterol 41 mg/dl LDL Cholesterol, Calculated 89 mg/dl VLDL Cholesterol, Calculated 42 mg/dl Cholesterol/HDL Ratio 4.2 Bedside Glucose 105 70-90 mg/dl
--- NOTE | 2017-04-27 14:36 | DOBUTAMINE ECHO ---
*NOTICE TO RECEIVING [employer] This information is strictly Confidential and protected under [place] law. [place] law prohibits you from making any further disclosure of this information unless further disclosure is expressly permitted by the written consent of the person to whom it pertains or is authorized by law. A general authorization for the release of medical or other information is not sufficient for this purpose. Hospital accepts no responsibility if the information is made available to any other person, INCLUDING THE PATIENT. Interpretation Summary * Name: GUIDO FLOWERS Study Date: 04/27/2017 12:35 PM BP: 158/75 mmHg * Patient Location: .2T\S\E218\S\1 HR: 76 * : 1955 (M/d/yyy) Gender: Female Height: 60 in * Age: 61 yrs Ethnicity: [place] Weight: 183 lb * Ordering Physician: Reggie Gonzalez * Referring Physician: Self, Referred * Performed By: Cassidy Ramirez RDCS * * Reason For Study: Chest Pain * BSA: 1.8 m2 * -- Conclusions -- * STRESS STUDY: * Normal pharmacologic stress echocardiogram, with submaximal heart rate response. * No echocardiographic or EKG evidence of myocardial ischemia were observied. * No symptoms suggestive of angina were induced. * A hypertensive response to low dose dobutamine infusion was observed, and therefore the maximum dobutamine dose administered was 10 mcg/kg/minute. * 1 mg of atropine was administered. * The heart rate was atteneated due to chronic beta eliot therapy. Procedure Details * DOBUTAMINE ECHO, CPT#70484 * A contrast injection of Definity was performed to improve assessment of LV function. * Contrast was injected into an intravenous site in the left arm. * One vial of Definity ultrasound contrast was diluted in normal saline to a total volume of 10 ml. A total of '5' ml of solution was administered during imaging. * Lot # [id number] of Definity utilized for procedure. * Expiration date 1DEC18. * The attending nurse who injected the contrast agent was Nafisa Bro RN. Left Ventricle * The left ventricle is normal in size. There is mild concentric left ventricular hypertrophy. Left ventricular systolic function is normal. The LV Ejection Fraction = 60-65%. * Resting wall motion: Normal. Stress wall motion: Appropriate increase in Left ventricular systolic function and decrease in cavity size. No stress induced segmental wall motion abnormalities. Stress Parameters * The baseline EKG reveals sinus rhythm with incomplete RBBB and resultant repolarization changes. * The stress EKG is negative for ischemia. No significant arrhythmias occured with pharmacologic stress. * The stress portion of this study was personally supervised by the undersigned interpreting physician. * Rest heart rate was '76' BPM. * Rest blood pressure was '158/75' * Maximum heart rate achieved was 101 bpm. * Maximum heart rate was 64 % of maximum age-predicted heart rate. * Maximum blood pressure was '215/51' * Maximum Dobutamine infusion rate was '10' mcg/kg/min. * A total of 1 mg of intravenous Atropine was used to supplement Dobutamine for heart rate response. * A total of 5 mg of IV Metoprolol was administered to reverse Dobutamine-induced tachycardia.
--- NOTE | 2017-04-27 15:02 | Discharge Instructions ---
Discharge Instructions Date of Service Apr 27, 2017. Admission Reason for Admission: Chest Pain, Hypertensive Urgency Discharge Discharge Diagnosis / Problem: CHEST PAIN Discharge Goals Goal(s): Decrease discomfort, Improve function Activity Recommendations Activity Limitations: resume your previous activity . Instructions / Follow-Up Instructions / Follow-Up FOLLOWUP WITH FAMILY DOCTOR Anthony Merchant ON Apr 1:45PM BLOOD PRESSURE FOLLOWUP WITH PCP AND CARDIOLOGY Current Hospital Diet Patient's current hospital diet: AHA Diet (Heart Healthy), Diabetes Type 2 Diet Discharge Diet Recommended Diet: AHA Diet (Heart Healthy), Diabetes Type 2 Diet Pending Studies Studies pending at discharge: no Laboratory Results Hemoglobin A1c Test 04/27/17 06:58 Range/Units Estimated Average Glucose 134 mg/dl Hemoglobin A1c 6.3 H 4.5-5.6 % Lipid Panel Test 04/27/17 06:58 Range/Units Triglycerides Level 210 H 0-150 mg/dl Cholesterol Level 172 0-200 mg/dl HDL Cholesterol 41 mg/dl Cholesterol/HDL Ratio 4.2 LDL Cholesterol, Calculated 89 mg/dl Medical Emergencies . Who to Call and When: Medical Emergencies: If at any time you feel your situation is an emergency, please call 911 immediately. . Non-Emergent Contact Non-Emergency issues call your: Primary Care Provider . . "Provider Documentation" section prepared by Devan Hernandez. . VTE Core Measure Inpt VTE Proph given/why not?: SCD's
[2017-04-27 15:09] VITALS: BP 107/71; PULSE 61; TEMP 36.9; O2SAT 95
--- NOTE | 2017-04-27 16:53 | Discharge Summary ---
Discharge Summary Date of Service Apr 27, 2017. Discharge Summary Admission Date: Apr 26, 2017 at 15:11 Discharge Date: Apr 27, 2017 Discharge Disposition: Home Principal Diagnosis: CHEST PAIN Secondary Diagnoses/Problems: of hyperlipidemia, tobacco abuse, status post carotid endarterectomy and post-procedure was complicated by left parietotemporal internal hemorrhage that was likely due to reperfusion injury and underwent left temporoparietal craniotomy, evacuation of hematoma and microdissection at that time and postprocedure, she had developed seizures and she is on medications for seizures at this time. Past medical history is also significant for GERD, depression with anxiety, peripheral vascular disease with claudication, obstructive sleep apnea on CPAP, acute gout, type 2 diabetes, Procedures: CTA CHEST: 1. No evidence for pulmonary embolus. 2. A 4 mm indeterminate pulmonary nodule within the right lower lobe. Please refer to the chart below for recommended follow-up. Please refer to below summary of Fleischner criteria recommendations for follow-up of incidental CT nodules (Jie Rios, Guidelines for management of small pulmonary nodules detected on CT scans: A statement from the Fleischner Society, Radiology 237: [phone].) SOLID NODULES Solitary nodule size: <6 mm * Low risk patients: no follow-up needed * high risk patients: optional CT at 12 months Solitary nodule size: 6-8 mm * Low risk patients: follow-up at 6-12 months, then consider further follow-up at 18-24 months * high risk patients: initial follow-up CT at 6-12 months and then at 18-24 months if no change Solitary nodule size: >8 mm * either low or high risk patients - consider follow-up CT at 3 months, and/or CT-PET, and/or biopsy Multiple nodules size: <6 mm * Low risk patients: no routine follow-up * high risk patients: optional CT at 12 months Multiple nodules size: 6-8 mm * Low risk patients: follow-up at 3-6 months, then consider further follow-up at 18-24 months * high risk patients: follow-up at 3-6 months, then at 18-24 months if no change Multiple nodules size: >8 mm * Low risk patients: follow-up at 3-6 months, then consider further follow-up at 18-24 months * high risk patients: follow-up at 3-6 months, then at 18-24 months if no change Note: newly detected indeterminate nodule in persons 35 years of age or older. * Low risk patients: minimal or absent history of smoking and/or other known risk factors * high risk patients: history of smoking or of other known risk factors (e.g. first degree relative with lung cancer, or exposure to asbestos, radon, uranium) * if a nodule up to 8 mm is partly solid or is ground glass further follow-up is required after 24 months to exclude possible slow growing adenocarcinoma (DANNI) SUBSOLID NODULES Solitary pure ground-glass nodule * nodule size <6 mm - no CT follow-up required * nodule size >=6 mm - follow-up CT at 6-12 months, then every 2 years until 5 years Solitary part-solid nodule * nodule size <6 mm - no CT follow-up required * nodule size >=6 mm - follow-up CT at 3-6 months. If unchanged, and solid component remains <6 mm, then annual follow-up for 5 years Multiple subsolid nodules * nodule size <6 mm - follow-up CT at 3-6 months, consider further follow-up at 2 and 4 years if stable * nodule size >=6 mm - follow-up CT at 3-6 months, subsequent management based on the most suspicious nodule(s) RESTING ECHO: Aortic valve sclerosis mild, without significant aortic valvular stenosis. * The left ventricular wall motion is normal. * The LV Ejection Fraction = 60-65%. * There is mild concentric left ventricular hypertrophy. * Grade I diastolic dysfunction, (abnormal relaxation pattern). * There is no significant valvular heart disease. DOBUTAMINE STRESS ECHO: STRESS STUDY: * Normal pharmacologic stress echocardiogram, with submaximal heart rate response. * No echocardiographic or EKG evidence of myocardial ischemia were observied. * No symptoms suggestive of angina were induced. * A hypertensive response to low dose dobutamine infusion was observed, and therefore the maximum dobutamine dose administered was 10 mcg/kg/minute. * 1 mg of atropine was administered. * The heart rate was atteneated due to chronic beta eliot therapy. Consultations: CARDIOLOGY Medication Reconciliation Continued Medications: Albuterol Hfa (Ventolin Hfa) 200 Puffs/12508 Mcg Aers 2 PUFFS INH Q6H PRN for SOB/Wheezing, #1 INHALER Alprazolam (Xanax) 1 Mg Tab 1 MG PO QPM PRN for Anxiety/Insomnia, #14 0 Refills Amitriptyline HCl (Amitriptyline HCl) 10 Mg Tab 20 MG PO DAILY, #30 Amlodipine (Norvasc) 2.5 Mg Tab 2.5 MG PO DAILY, TAB Aspirin (Aspirin Ec) 81 Mg Tab 81 MG PO DAILY Atorvastatin (Lipitor) 80 Mg Tab 80 MG PO DAILY, TAB Carvedilol (Coreg) 6.25 Mg Tab 6.25 MG PO BID, TAB Citalopram (Citalopram Hydrobromide) 20 Mg Tab 20 MG PO DAILY Levetiracetam (Keppra) 750 Mg Tab 750 MG PO BID, TAB Loratadine (Claritin) 10 Mg Tab 10 MG PO DAILY, #30 TAB Metformin Ext Rel (Glucophage Ext Rel) 500 Mg Tab 500 MG PO DAILY, TAB Pantoprazole (Protonix) 40 Mg Tab 40 MG PO DAILY, #30 TAB Ranitidine (Zantac) 150 Mg Tab 150 MG PO BID PRN for Dyspepsia, 0 Refills Admission Information HPI (per Admitting provider): : This is a 61-year-old female with past medical history significant for history of hyperlipidemia, tobacco abuse, status post carotid endarterectomy and post-procedure was complicated by left parietotemporal internal hemorrhage that was likely due to reperfusion injury and underwent left temporoparietal craniotomy, evacuation of hematoma and microdissection at that time and postprocedure, she had developed seizures and she is on medications for seizures at this time. Past medical history is also significant for GERD, depression with anxiety, peripheral vascular disease with claudication, obstructive sleep apnea on CPAP, acute gout, type 2 diabetes, currently presents with chest pain. The patient says since yesterday she is getting on and off chest pressure like feeling, squeezing like feeling, about 7/8 in severity, no radiation to hand or neck or shoulder, no association with sweating or nausea or dizziness. It was on and off and even in the morning when she woke up she again had this chest squeezing pressure like feeling about a 5/10 in severity. At that time, she decided to come to the ER. Currently, patient is on nitro paste, symptoms have almost gone, hemodynamically stable. Denies any headaches. No blurred visions. No runny nose. No sore throat, no difficulty swallowing. No shortness of breath, no cough, no fever, no chills, no abdominal pain. No skin rash. Normal bowel and bladder movements. Appetite is okay. Ambulatory status is fine and the patient denies any chest pain or shortness of breath while she is ambulating or climbing steps. The patient had similar kind of chest pressure last year and thought to be from hypertensive urgency and she underwent stress echocardiogram as outpatient, which she could not complete as could not reach the target heart rate. Physical Exam (per Admitting): GENERAL: The patient is of moderate build, not in distress. VITAL SIGNS: Temperature 36.5, pulse 61, respiratory rate 18, blood pressure 157/95, oxygen 98% on room air. HEENT: No pallor, no icterus. Pupils equal, round and reactive to light. NECK: No JVD, no neck masses, no carotid bruits. CARDIOVASCULAR: S1, S2 heard, regular rate and rhythm, no murmur, no gallop. RESPIRATORY SYSTEM: Clear to auscultation bilaterally. No wheezing, no crackles. ABDOMEN: Soft, bowel sounds present. Nontender. No distention. CENTRAL NERVOUS SYSTEM: Cranial nerves II-XII grossly intact, nonfocal. EXTREMITIES: No edema, no erythema Hospital Course : This is a 61-year-old female who presents with chest pressure. 1. Chest pressure. Significant risk factors with peripheral vascular disease, hypertension and diabetes and age. Initial troponin negative. We will get an EKG. Will follow the serial cardiac enzymes, echocardiogram and cardiology consult. Close monitor in the tele floor. serial ce and echo unremarkable s/p dobutamine stress test-unremarkable cardiology on board to d/c on home meds. 2. History of diabetes, on metformin which we will hold. We will place on insulin sliding scale. HBA1C 6.3. 3. Hypertension. was elevated in Er but currently stable. To d/c on home emds and f/u with pcp. 4. History of anxiety and depression. Continue citalopram and Xanax p.r.n. 5. Gastroesophageal reflux disease. Continue Protonix and Zantac. 6. History of epilepsy. Continue Keppra. 7. Hyperlipidemia. Continue statin. 8. Obstructive sleep apnea. Continue CPAP. 9. LUNG NODULE 4MM IN RIGHT LOWER LOBE F/U CT SCAN IN ONE YEAR PER PCP 9. Deep vein thrombosis prophylaxis, SCDs 10. Disposition: will d/c home today Total time spent on discharge = 35MINUTES This includes examination of the patient, discharge planning, medication reconciliation, and communication with other providers. Discharge Instructions Discharge Instructions Date of Service Apr 27, 2017. Admission Reason for Admission: Chest Pain, Hypertensive Urgency Discharge Discharge Diagnosis / Problem: CHEST PAIN Discharge Goals Goal(s): Decrease discomfort, Improve function Activity Recommendations Activity Limitations: resume your previous activity . Instructions / Follow-Up Instructions / Follow-Up FOLLOWUP WITH FAMILY DOCTOR Anthony Merchant ON Apr 1:45PM BLOOD PRESSURE FOLLOWUP WITH PCP AND CARDIOLOGY Current Hospital Diet Patient's current hospital diet: AHA Diet (Heart Healthy), Diabetes Type 2 Diet Discharge Diet Recommended Diet: AHA Diet (Heart Healthy), Diabetes Type 2 Diet Pending Studies Studies pending at discharge: no Laboratory Results Hemoglobin A1c Test 04/27/17 06:58 Range/Units Estimated Average Glucose 134 mg/dl Hemoglobin A1c 6.3 H 4.5-5.6 % Lipid Panel Test 04/27/17 06:58 Range/Units Triglycerides Level 210 H 0-150 mg/dl Cholesterol Level 172 0-200 mg/dl HDL Cholesterol 41 mg/dl Cholesterol/HDL Ratio 4.2 LDL Cholesterol, Calculated 89 mg/dl Medical Emergencies . Who to Call and When: Medical Emergencies: If at any time you feel your situation is an emergency, please call 911 immediately. . Non-Emergent Contact Non-Emergency issues call your: Primary Care Provider . . "Provider Documentation" section prepared by Devan Hernandez. . VTE Core Measure Inpt VTE Proph given/why not?: SCD's
== END 2017-04-27 15:50 | disposition home or self-care (01) ==
LOC: C.EDB 10:59 → C.2T 15:11 → ENRESERV 15:23
PROVIDERS: ADMIT Internal Medicine; ATTEND Internal Medicine
DX: R07.9 Chest pain, unspecified (principal); E78.5 Hyperlipidemia, unspecified; Z98.890 Other specified postprocedural states; G40.909 Epilepsy, unspecified, not intractable, without status epilepticus; K21.9 Gastro-esophageal reflux disease without esophagitis; F41.8 Other specified anxiety disorders; I73.9 Peripheral vascular disease, unspecified; G47.33 Obstructive sleep apnea (adult) (pediatric); E11.9 Type 2 diabetes mellitus without complications; I10 Essential (primary) hypertension; Z87.891 Personal history of nicotine dependence; Z79.899 Other long term (current) drug therapy; Z79.82 Long term (current) use of aspirin; I63.9 Cerebral infarction, unspecified; Z88.0 Allergy status to penicillin; Z88.2 Allergy status to sulfonamides

== ENCOUNTER 2017-08-13 07:39 | Emergency (ER) | payer OTHER ==
[~2017-08-13] VITALS: Ht 152.4 cm; Wt 85.7 kg
[~2017-08-13 07:39] MED LIST changes: -ALBUAER19 INH; -AMIT10TA6 PO; +AMLO2.5T PO; +AMT10 PO; +ATOR-26 PO; -LPT/40 PO; +METFTAB PO; -MRLP17 PO; +RANI150T85 PO; +VNTHFA/IN INH; -ZNTT/150 PO
[2017-08-13 07:44] VITALS: PULSE 78; TEMP 36.7; O2SAT 97; Ht 152.4 cm; Wt 85.7 kg
[2017-08-13] MEDS ORDERED: ACETAMINOPHEN 325 MG TAB PO STA (07:47)
[2017-08-13] MEDS ORDERED: LIDOCAINE/EPINEPH/TETRACAINE 1 EA SYR EXT STA (07:47)
[2017-08-13] MEDS ORDERED: LIDO/EPINEPHRINE/SOD BICARB 20 ML VIAL INFIL ONE (08:00)
--- NOTE | 2017-08-13 08:25 | EMERGENCY ROOM VISIT NOTE ---
History Report prepared by Jamar: Bhavin Turcios Under the Supervision of: Dr. Patrick Brennan M.D. First contact with patient: 07:40 Stated Complaint: FALL DOWN STEPS History of Present Illness The patient is a 61 year old female who presents to the Emergency Room by EMS with complaints of constant right sided neck pain s/p fall occurring just prior to arrival. The patient also complains of head, and right chest pain. She states that she was walking up her steps and went to reach for the door handle at the top of the stairs, but lost her balance and fell backwards. She estimates that she fell down 12 stairs. The patient states that she landed on her right side. She hit her head, but does not believe she lost consciousness. She states "I just feel a little dazed". The patient's tetanus is up to date. She notes that her steps are lightly carpeted. Source of History: patient Onset: Just prior to arrival Position: neck (right side) Quality: other (pain s/p fall) Timing: constant Associated Symptoms: + headache, + chest pain (right), No LOC Review of Systems See HPI for pertinent positives & negatives. A total of 10 systems reviewed and were otherwise negative. Past Medical & Surgical Medical Problems: (1) Anxiety (2) Cerebral hemorrhage (3) CVA (4) Depression (5) Hematoma (6) Hypertension Nos (7) Hypertensive urgency (8) Migraine (9) Pure Hypercholesterolem (10) Seizure (11) Stroke Family History Cancer Diabetes mellitus Heart disease Hypertension Seizures Social History Smoking Status: Former Smoker Alcohol Use: none Drug Use: none Marital Status: Occupation Status: disabled Current/Historical Medications Scheduled Acetaminophen Tab (Tylenol), 325 MG PO UD Alprazolam (Xanax), 1 MG PO HS Amitriptyline Hcl (Elavil), 100 MG PO HS Amlodipine (Norvasc), 2.5 MG PO QAM Aspirin (Aspirin Ec), 81 MG PO QAM Atorvastatin (Lipitor), 80 MG PO HS Carvedilol (Coreg), 6.25 MG PO BID Citalopram (Citalopram Hydrobromide), 20 MG PO QAM Citalopram Hydrobromide (Citalopram Hydrobromide), 1 TAB PO QAM Levetiracetam (Keppra), 750 MG PO BID Metformin Ext Rel (Glucophage Ext Rel), 500 MG PO QAM Pantoprazole (Protonix), 40 MG PO QAM Ranitidine (Zantac), 150 MG PO BID Scheduled PRN Albuterol Hfa (Ventolin Hfa), 2-4 PUFFS INH Q6H PRN for Shortness of Breath Allergies Coded Allergies: Cephalosporins (Unverified Allergy, Unknown, RASH AND HIVES, 08/13/17) Doxycycline (Unverified Allergy, Unknown, DIARREHA, 08/13/17) Sulfa Antibiotics (Verified Allergy, Unknown, "SULFA DRUGS": UNKNOWN, 08/13) Penicillins (Unverified Adverse Reaction, Unknown, 08/13/17) Physical Exam Vital Signs Date Time Temp Pulse Resp B/P (MAP) Pulse Ox O2 Delivery O2 Flow Rate FiO2 08/13/17 10:14 142/70 08/13/17 07:44 36.7 78 18 179/87 97 Room Air Physical Exam GENERAL: Patient is in no acute distress. HEENT: 1 cm right parietal scalp laceration. No active bleeding. Mucous membranes moist. No nasal congestion. No obvious facial trauma. No scleral icterus. NECK: Mildly diffusely tender to posterior c-spine. No stridor. Trachea midline. Somewhat tender over right lateral neck musculature. LUNGS: Clear to auscultation bilaterally, no wheeze, no rhonchi, breath sounds equal. HEART: Without murmurs gallops or rubs, regular rate and rhythm. CHEST: Mildly tender over the right anterior superior chest wall. ABDOMEN: Soft, nontender, bowel sounds positive, no hernias, no peritonitis. EXTREMITIES: No cyanosis or edema, full range of motion of all the joints without pain or difficulty, no signs for acute trauma. NEUROLOGIC: Oriented x 3, no acute motor or sensory deficits, no focal weakness. SKIN: No rash, no jaundice, no diaphoresis. Medical Decision & Procedures ER Provider Diagnostic Interpretation: Radiology results as stated below per my review and radiologist interpretation: HEAD WITHOUT CONTRAST (CT) Findings: The paranasal sinuses and mastoid air cells are clear. Findings of a pre-existing left sided craniotomy. Craniotomy flap is in good position. Findings of an old temporal occipital infarct/encephalomalacia. Ventricular system is midline. Mild compensatory prominence of left lateral ventricle. Third and fourth ventricles are midline. Right extracranial soft tissue edema Impression: No acute process. Pre-existing postoperative change. Right extracranial soft tissue edema The above report was generated using voice recognition software. It may contain grammatical, syntax or spelling errors. Electronically signed by: Shekhar Mahoney M.D. 08/13/2017 8:33 AM CERVICAL SPINE W/O FINDINGS: Topstitcher Lockstitch topogram: Left frontoparietal craniotomy. Cardiomegaly. Straightening of normal cervical lordosis likely positional. Mild vertebral body height loss of C5 and C6 likely degenerative. Minimal anterolisthesis of C4 on C5. Remaining vertebral bodies demonstrate normal alignment. Intervertebral disc height loss noted at C5-6 and C6-7 secondary to the presence of disc osteophyte complexes with prominent posterior bony spurring greatest at C5-6. Minimal disc osteophyte complex noted at C4-5. 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 Osseous neural foraminal narrowing noted bilaterally at C4-5 through C6-7. No acute fracture or subluxation. Skull base intact. Lung apices clear. Fluid noted in the cervical esophagus. IMPRESSION: 1. No acute osseous injury of the cervical spine. 2. Multilevel degenerative changes most significant in the lower cervical spine, where there is osseous spinal canal and neural foraminal narrowing. 3. Fluid noted in the cervical esophagus. Electronically signed by: Raheel Turner M.D. 08/13/2017 8:39 AM CHEST 2 VIEWS ROUTINE FINDINGS: The bones soft tissues and hemidiaphragms are normal. The cardiomediastinal silhouette is normal. The lungs are clear. The pulmonary vasculature is normal. IMPRESSION: Negative chest. The above report was generated using voice recognition software. It may contain grammatical, syntax or spelling errors. Electronically signed by: Shekhar Mahoney M.D. 08/13/2017 9:18 AM Medications Administered Medications (Trade) Dose Ordered Sig/Gay Route Start Time Stop Time Status Last Admin Dose Admin Acetaminophen (Tylenol Tab) 650 mg NOW STAT PO 08/13/17 07:47 08/13/17 07:50 DC 08/13/17 08:17 650 MG Lidocaine/ Epinephrine (Buffered Xylocaine/ Epinephrine 1% Inj) 20 ml NOW ONCE INFIL 08/13/17 08:00 08/13/17 08:01 DC 08/13/17 08:18 20 ML Tetracaine/ Epinephrine/ Lidocaine (L.e.t. Gel 4%/ 1:100/0.5%) 1 ea NOW STAT EXT 08/13/17 07:47 08/13/17 07:50 DC 08/13/17 08:17 1 EA Procedure Laceration repair: The patient's laceration was cleansed with 4 x 4's and saline. Once the old blood was removed, it was apparent that this was a deep abrasion, not a true laceration, no suturing or stapling required. ED Course 0741: The patient was evaluated in room B6. A complete history and physical exam was performed. 0747: Ordered L.E.T. Gel 4% 1:100/0.5% EXT, Tylenol Tab 650 mg PO. 08: Ordered Buffered Xylocaine/Epinephrine 1% 20 mL INFIL. 0945: Reevaluated the patient. The laceration on her head was not large enough to warrant sutures. Discussed results and discharge instructions: she verbalized understanding and agreement. The patient is ready for discharge. Medical Decision The patient is a 61 year old female who presents to the ED with complaints of head, right neck, and right chest pain s/p fall. Differential diagnoses considered include ICH, skull fracture, C-spine injury, cervical strain, rib fracture, clavicle fracture, chest contusion, and back/abdominal/lower extremity trauma. The patient presents after a fall. Brain CT does not show any acute bleed or mass-effect. No skull fracture. C-spine CT does not show any acute fracture. Chest film does not show evidence for rib injury or pulmonary contusion. No obvious clavicle injury. On my exam, there was no evidence for lower extremity trauma, back trauma or abdominal trauma. The laceration to the right parietal scalp was not in need of suturing, this was more of a deep abrasion. There was a surrounding hematoma. The patient is doing well. She did receive oral Tylenol for pain. She is being discharged with [id number] pain meds, ice and rest. If worsening, she can return. Medication Reconcilliation Current Medication List: was personally reviewed by me Blood Pressure Screening Patient's blood pressure: Elevated blood pressure Blood pressure disposition: Referred to PCP Impression Primary Impression: Head trauma Additional Impressions: Cervical strain Chest wall contusion Fall Scribe Attestation The scribe's documentation has been prepared under my direction and personally reviewed by me in its entirety. I confirm that the note above accurately reflects all work, treatment, procedures, and medical decision making performed by me. Departure Information Dispostion Home / Self-Care Referrals Anthony Garya III, M.D. (PCP) Forms HOME CARE DOCUMENTATION FORM, IMPORTANT VISIT INFORMATION Additional Instructions ice to the sore areas watch for infection--redness, fever, drainage tylenol for pain return for worsening symptoms or vomiting or worsening headache Problem Qualifiers
--- NOTE | 2017-08-13 08:34 | DIAGNOSTIC IMAGING REPORT ---
HEAD WITHOUT CONTRAST (CT) CT DOSE: 939.25 mGy.cm HISTORY: Trauma fall, headache TECHNIQUE: Multiaxial CT images of the head were performed without the use of intravenous contrast. A dose lowering technique was utilized adhering to the principles of ALARA. Comparison: 02/21/2016 Findings: The paranasal sinuses and mastoid air cells are clear. Findings of a pre-existing left sided craniotomy. Craniotomy flap is in good position. Findings of an old temporal occipital infarct/encephalomalacia. Ventricular system is midline. Mild compensatory prominence of left lateral ventricle. Third and fourth ventricles are midline. Right extracranial soft tissue edema Impression: No acute process. Pre-existing postoperative change. Right extracranial soft tissue edema The above report was generated using voice recognition software. It may contain grammatical, syntax or spelling errors. Electronically signed by: Shekhar Mahoney M.D. 08/13/2017 8:33 AM Dictated Date/Time: 08/13/2017 8:30 AM
--- NOTE | 2017-08-13 08:41 | DIAGNOSTIC IMAGING REPORT ---
CERVICAL SPINE W/O CLINICAL HISTORY: 61 years-old Female presenting with fall, neck pain, fall down 12 stairs with head injury and possible loss of consciousness, laceration to the posterior head. TECHNIQUE: Multidetector CT of the cervical spine was performed without the use of intravenous contrast. IV contrast: None. A dose lowering technique was used consistent with the principles of ALARA (as low as reasonably achievable). COMPARISON: None. CT DOSE (mGy.cm): The estimated cumulative dose is 939.25. FINDINGS: Bar Steward topogram: Left frontoparietal craniotomy. Cardiomegaly. Straightening of normal cervical lordosis likely positional. Mild vertebral body height loss of C5 and C6 likely degenerative. Minimal anterolisthesis of C4 on C5. Remaining vertebral bodies demonstrate normal alignment. Intervertebral disc height loss noted at C5-6 and C6-7 secondary to the presence of disc osteophyte complexes with prominent posterior bony spurring greatest at C5-6. Minimal disc osteophyte complex noted at C4-5. 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 Osseous neural foraminal narrowing noted bilaterally at C4-5 through C6-7. No acute fracture or subluxation. Skull base intact. Lung apices clear. Fluid noted in the cervical esophagus. IMPRESSION: 1. No acute osseous injury of the cervical spine. 2. Multilevel degenerative changes most significant in the lower cervical spine, where there is osseous spinal canal and neural foraminal narrowing. 3. Fluid noted in the cervical esophagus. Electronically signed by: Raheel Turner M.D. 08/13/2017 8:39 AM Dictated Date/Time: 08/13/2017 8:34 AM
[2017-08-13] MEDS ORDERED: AMLO2.5T PO (08:52)
[2017-08-13] MEDS ORDERED: CITA10TA4 PO (08:52)
[2017-08-13] MEDS ORDERED: ALPR1TAB3 PO (08:52)
[2017-08-13] MEDS ORDERED: AMT50 PO (08:57)
[2017-08-13] MEDS ORDERED: VNTHFA/IN INH (08:57)
[2017-08-13] MEDS ORDERED: ACET-1693 PO (09:00)
--- NOTE | 2017-08-13 09:19 | DIAGNOSTIC IMAGING REPORT ---
CHEST 2 VIEWS ROUTINE CLINICAL HISTORY: trauma, right ches pain pain. Trauma. COMPARISON STUDY: 04/26/2017 FINDINGS: The bones soft tissues and hemidiaphragms are normal. The cardiomediastinal silhouette is normal. The lungs are clear. The pulmonary vasculature is normal. IMPRESSION: Negative chest. The above report was generated using voice recognition software. It may contain grammatical, syntax or spelling errors. Electronically signed by: Shekhar Mahoney M.D. 08/13/2017 9:18 AM Dictated Date/Time: 08/13/2017 9:17 AM
[2017-08-13 10:14] VITALS: BP 142/70
== END 2017-08-13 10:15 | disposition home or self-care (01) ==
LOC: EDBD 07:39 → C.EDB 07:40
DX: S01.01XA Laceration without foreign body of scalp, initial encounter (principal); S16.1XXA Strain of muscle, fascia and tendon at neck level, initial encounter; S20.20XA Contusion of thorax, unspecified, initial encounter; W10.9XXA Fall (on) (from) unspecified stairs and steps, initial encounter; I10 Essential (primary) hypertension; E78.5 Hyperlipidemia, unspecified; F41.8 Other specified anxiety disorders; Z79.82 Long term (current) use of aspirin; Z79.84 Long term (current) use of oral hypoglycemic drugs; Z88.1 Allergy status to other antibiotic agents; Z88.0 Allergy status to penicillin; Z88.2 Allergy status to sulfonamides; Z83.3 Family history of diabetes mellitus; Z82.49 Family history of ischemic heart disease and other diseases of the circulatory system; Z82.0 Family history of epilepsy and other diseases of the nervous system

== ENCOUNTER 2018-01-14 22:01 | Emergency (ER) | payer OTHER ==
[~2018-01-14] VITALS: Ht 152.4 cm; Wt 82.9 kg
[~2018-01-14 22:01] MED LIST changes: +ACET-1693 PO; -AMT10 PO; +AMT50 PO; +CITA10TA4 PO
[2018-01-14 22:13] VITALS: TEMP 37; Ht 152.4 cm; Wt 82.9 kg
[2018-01-14] MEDS ORDERED: DEXAMETHASONE **PF** INJ 10 MG/ML VIAL IV ONE (23:00)
[2018-01-14] MEDS ORDERED: ALBUT/IPRATROP 3MG/0.5MG NEB 3 ML VIAL INH STA (23:00)
[2018-01-14 23:34] VITALS: O2SAT 95
[2018-01-14 23:49] LABS: BASO % 0.5 %; BASO ABS # 0.06 K/uL (0-0.2); EOS % 2.8 %; EOS ABS # 0.35 K/uL (0-0.5); HEMATOCRIT 39.6 % (37-47); HEMOGLOBIN 12.8 g/dL (12.0-16.0); IG# 0.02 K/uL (0.00-0.02); LYMPH % 28.9 %; LYMPH ABS # 3.67 K/uL (1.2-3.4); MEAN CORPUSCULAR HEMOGLOBIN 28.8 pg (25-34); MEAN CORPUSCULAR HGB CONC 32.3 g/dl (32-36); MEAN PLATELET VOLUME 10.2 fL (7.4-10.4); MONO % 7.1 %; NEUT % 60.5 %; NEUT ABS # 7.71 K/uL (1.4-6.5); PLATELET COUNT 263 K/uL (130-400); RED CELL DISTRIBUTION WIDTH CV 13.4 % (11.5-14.5); WHITE BLOOD COUNT 12.71 K/uL (4.8-10.8)
[2018-01-14] MEDS ORDERED: DEXAMETHASONE SOD INJ 10 MG/ML VIAL ONE (23:52)
[2018-01-15 00:12] LABS: ALBUMIN 3.7 gm/dl (3.4-5.0); ALKALINE PHOSPHATASE 204 U/L (45-117); ALT/SGPT 43 U/L (12-78); AST/SGOT 28 U/L (15-37); BLOOD UREA NITROGEN 10 mg/dl (7-18); CALCIUM 9.1 mg/dl (8.5-10.1); CARBON DIOXIDE 26 mmol/L (21-32); CREATININE 0.85 mg/dl (0.60-1.20); GLUCOSE 103 mg/dl (70-99); POTASSIUM 3.5 mmol/L (3.5-5.1); SODIUM 138 mmol/L (136-145); TOTAL PROTEIN 8.9 gm/dl (6.4-8.2)
[2018-01-15] MEDS ORDERED: DOXYCYCLINE HYCLATE 100 MG CAP PO ONE (01:15)
[2018-01-15] MEDS ORDERED: PRED50TA PO (01:19)
[2018-01-15] MEDS ORDERED: DOXY100C2 PO (01:19)
--- NOTE | 2018-01-15 01:26 | EMERGENCY ROOM VISIT NOTE ---
ED Visit Note First contact with patient: 22:53 The patient was seen and examined with Devi Chen PA-C. I agree with the history, physical and findings. Please see the note for disposition and details.
[2018-01-15 01:37] VITALS: BP 118/65; PULSE 80; O2SAT 95
[2018-01-15] MEDS ORDERED: AMT10 PO (01:40)
--- NOTE | 2018-01-15 06:01 | EMERGENCY ROOM VISIT NOTE ---
History First contact with patient: 22:53 Chief Complaint: COUGH Stated Complaint: COUGHING, COLD AND ALLERGIES Nursing Triage Summary: Pt reports cough for over a week. Pt with yellow sputum. Pt uses a CPAP and night and reports difficulty breathing at night. History of Present Illness The patient is a 62 year old female who presents to the Emergency Room with complaints of cough, congestion and wheezing with productive yellow sputum for the past week who saw the family care doctor yesterday and was placed on an inhaler and Nasonex. Patient states his symptoms are gotten worse. She has a history of smoking. No known history of COPD. Patient denies chest pain, dyspnea, abdominal pain, neck stiffness, sore throat, fever, chills, earache, lightheadedness or dizziness. She is tolerating p.o. fluids and food. No recent travel. Shots are current. Review of Systems An 10 system review of systems was completed with positives and pertinent negatives listed in the HPI. Past Medical/Surgical History Medical Problems: (1) Anxiety (2) Cerebral hemorrhage (3) CVA (4) Depression (5) Hematoma (6) Hypertension Nos (7) Hypertensive urgency (8) Migraine (9) Pure Hypercholesterolem (10) Seizure (11) Stroke Family History Cancer Diabetes mellitus Heart disease Hypertension Seizures Social History Smoking Status: Former Smoker Alcohol Use: none Drug Use: none Marital Status: Occupation Status: disabled Current/Historical Medications Scheduled Alprazolam (Xanax), 1 MG PO HS Amitriptyline HCl (Amitriptyline HCl), 10 MG PO BID Amlodipine (Norvasc), 2.5 MG PO QAM Aspirin (Aspirin Ec), 81 MG PO QAM Atorvastatin (Lipitor), 80 MG PO HS Carvedilol (Coreg), 6.25 MG PO BID Citalopram (Citalopram Hydrobromide), 20 MG PO QAM Citalopram Hydrobromide (Citalopram Hydrobromide), 10 MG PO QAM Doxycycline Hyclate (Vibramycin), 100 MG PO BID Levetiracetam (Keppra), 750 MG PO BID Metformin Ext Rel (Glucophage Ext Rel), 500 MG PO QAM Pantoprazole (Protonix), 40 MG PO QAM Prednisone (Prednisone), 50 MG PO DAILY Ranitidine (Zantac), 150 MG PO BID Scheduled PRN Albuterol Hfa (Ventolin Hfa), 2-4 PUFFS INH Q6H PRN for Shortness of Breath Physical Exam Vital Signs Date Time Temp Pulse Resp B/P (MAP) Pulse Ox O2 Delivery O2 Flow Rate FiO2 01/15/18 01:37 80 22 118/65 95 01/15/18 01:11 85 22 92 Room Air 01/15/18 01:03 70 115/63 91 Room Air 01/14/18 23:37 67 01/14/18 23:34 95 Room Air 01/14/18 23:34 95 Room Air 01/14/18 23:34 67 20 141/74 96 Room Air 01/14/18 22:13 37.0 78 18 128/78 95 Room Air Physical Exam VITALS: Vitals are noted on the nurse's note and reviewed by myself. Vital signs reviewed. GENERAL: Pleasant female, in no acute distress, nondiaphoretic, well-developed well-nourished. SKIN: The skin was without rashes, erythema, edema, or bruising. There is no tenting of the skin. Capillary reflex less than 2 seconds. HEAD: Normocephalic atraumatic. EARS: External auditory canals clear, tympanic membranes pearly pitt without erythema or effusion bilaterally. EYES: Pupils equal round and reactive to light and accommodation. Conjunctivae without injection, sclerae without icterus. Extraocular movements intact. NOSE: Patent, turbinates without inflammation or discharge. No sinus tenderness. MOUTH: Mucous membranes moist. Pharynx without erythema or exudate. Uvula midline. Airway patent. Tongue does not deviate. NECK: Supple without nuchal rigidity. No lymphadenopathy. No thyromegaly. Cervical spine is nontender. No JVD. HEART: Regular rate and rhythm without LUNGS: Mild diffuse end expiratory wheezes, without rales or rhonchi. No retractions or accessory muscle use. ABDOMEN: Positive bowel sounds x 4. Normal tympanic percussion. Soft, nontender, without masses or organomegaly. Santos sign negative. No guarding or rebound tenderness. No CVA tenderness MUSCULOSKELETAL: No muscle atrophy, erythema, or edema noted. NEURO: Patient was alert and oriented to person place and time. Normal sensation to light and sharp touch. No focal neurological deficits. Medical Decision & Procedures Laboratory Results 01/14/18 23:30 Red Blood Count 4.45, Mean Corpuscular Volume 89.0, Mean Corpuscular Hemoglobin 28.8, Mean Corpuscular Hemoglobin Concent 32.3, Mean Platelet Volume 10.2, Neutrophils (%) (Auto) 60.5, Lymphocytes (%) (Auto) 28.9, Monocytes (%) (Auto) 7.1, Eosinophils (%) (Auto) 2.8, Basophils (%) (Auto) 0.5, Neutrophils # (Auto) 7.71, Lymphocytes # (Auto) 3.67, Monocytes # (Auto) 0.90, Eosinophils # (Auto) 0.35, Basophils # (Auto) 0.06 01/14/18 23:30 Test 01/14/18 23:30 01/14/18 23:44 White Blood Count 12.71 K/uL (4.8-10.8) Red Blood Count 4.45 M/uL (4.2-5.4) Hemoglobin 12.8 g/dL (12.0-16.0) Hematocrit 39.6 % (37-47) Mean Corpuscular Volume 89.0 fL (80-100) Mean Corpuscular Hemoglobin 28.8 pg (25-34) Mean Corpuscular Hemoglobin Concent 32.3 g/dl (32-36) Platelet Count 263 K/uL (130-400) Mean Platelet Volume 10.2 fL (7.4-10.4) Neutrophils (%) (Auto) 60.5 % Lymphocytes (%) (Auto) 28.9 % Monocytes (%) (Auto) 7.1 % Eosinophils (%) (Auto) 2.8 % Basophils (%) (Auto) 0.5 % Neutrophils # (Auto) 7.71 K/uL (1.4-6.5) Lymphocytes # (Auto) 3.67 K/uL (1.2-3.4) Monocytes # (Auto) 0.90 K/uL (0.11-0.59) Eosinophils # (Auto) 0.35 K/uL (0-0.5) Basophils # (Auto) 0.06 K/uL (0-0.2) RDW Standard Deviation 44.0 fL (36.4-46.3) RDW Coefficient of Variation 13.4 % (11.5-14.5) Immature Granulocyte % (Auto) 0.2 % Immature Granulocyte # (Auto) 0.02 K/uL (0.00-0.02) Anion Gap 8.0 mmol/L (3-11) Est Creatinine Clear Calc Drug Dose 63.8 ml/min Estimated GFR () 83.9 Estimated GFR (Non- 72.4 BUN/Creatinine Ratio 11.9 (10-20) Calcium Level 9.1 mg/dl (8.5-10.1) Total Bilirubin 0.4 mg/dl (0.2-1) Direct Bilirubin 0.1 mg/dl (0-0.2) Aspartate Amino Transf (AST/SGOT) 28 U/L (15-37) Alanine Aminotransferase (ALT/SGPT) 43 U/L (12-78) Alkaline Phosphatase 204 U/L (45-117) Troponin I < 0.015 ng/ml (0-0.045) Total Protein 8.9 gm/dl (6.4-8.2) Albumin 3.7 gm/dl (3.4-5.0) Bedside Troponin I 0.030 ng/ml (0-0.045) Medications Administered Medications (Trade) Dose Ordered Sig/Gay Route Start Time Stop Time Status Last Admin Dose Admin Albuterol/ Ipratropium (Duoneb) 3 ml NOW STAT INH 01/14/18 23:00 01/14/18 23:02 DC 01/14/18 23:55 3 ML Dexamethasone Sodium Phosphate (Decadron Inj) 10 mg STK-MED ONCE .ROUTE 01/14/18 23:52 01/14/18 23:53 DC 01/14/18 23:56 10 MG Doxycycline Hyclate (Vibramycin Cap) 100 mg ONE ONCE PO 01/15/18 01:15 01/15/18 01:16 DC 01/15/18 01:15 100 MG ED Course Prior records/ancillary studies reviewed. Triage Nursing notes reviewed. The patient's history was concerning for respiratory difficulties. Differential diagnosis: Etiologies such as infections, reactive airway disease, pneumonia, pneumothorax , COPD, CHF, cardiac ischemia, pulmonary embolism, musculoskeletal, gastrointestinal, as well as others were entertained. Physical examination: As above. ER treatment provided: Nebulizer, steroids, doxycycline. Patient states she is not allergic to doxycycline and can take this. She occasionally gets diarrhea On reassessment the patient felt better. Diagnostic interpretation by me: The electrocardiogram was negative for acute ischemic or pathologic change. Normal sinus, left axis deviation, incomplete right bundle branch block, rate of 66. Impression left axis deviation with incomplete right bundle branch block interpreted by myself. Prior EKG was reviewed and is unchanged. The labs revealed mild leukocytosis. Negative troponin. Imaging studies: Chest x-ray with no acute consolidation, pneumothorax or free of my interpretation. This appears to be consistent with bronchitis with wheezing. Patient was started on antibiotics as she had a productive cough and is getting progressively worse for the past week. She states she can take doxycycline without issue. She was started on steroids. She is advised to take medications as directed, rest, stay well-hydrated and follow-up family care in a few days or here in the ER sooner for high fevers, lethargy, chest pain, difficulty breathing, worsening signs or symptoms or as needed. By the evaluation outlined above emergent etiologies such as CHF, cardiac ischemia, pulmonary embolism, pneumonia, pneumothorax, musculoskeletal, serious bacterial infections, as well as others were deemed relatively unlikely. The pt informed about the findings as listed above. All questions were answered and pleased with the treatment. Return instructions were outlined and the patient was discharged in stable condition. Outpatient prescription management: Prednisone, doxycycline Referral: The patient was referred back to their primary care physician for follow-up in 2 to 3 days for a recheck of the current condition. Case reviewed with my attending The chart was completed utilizing [employer] voice recognition software. Grammatical errors, random word insertions, pronoun errors, and incomplete sentences are an occassional consequence of this system due to software limitations, ambient noise, and hardware issues. Any formal questions or concerns about the content, text, or information contained within the body of this dictation should be directly addressed to the physician assistant research scientist for clarification. Medical Decision As above Medication Reconcilliation Current Medication List: was personally reviewed by me Blood Pressure Screening Patient's blood pressure: Normal blood pressure Impression Primary Impression: Wheezing Additional Impression: Bronchitis Departure Information Dispostion Home / Self-Care Condition GOOD Prescriptions Prednisone (Prednisone) 50 Mg Tab 50 MG PO DAILY for 4 Days, #4 TAB Prov: Loyda Chen .JOSUÉ 01/15/18 Doxycycline Hyclate (VIBRAMYCIN) 100 Mg Cap 100 MG PO BID for 7 Days, #14 CAP Prov: Loyda Chen PA-C 01/15/18 Forms HOME CARE DOCUMENTATION FORM, IMPORTANT VISIT INFORMATION Patient Instructions Bronchitis Acute, My [facility] Additional Instructions Albuterol Inhaler: Take 2 puffs four times daily for five days, then as needed. Prednisone 50mg: Once daily until the prescription is finished. It is best to take this earlier in the day as some patients note occasional difficulty falling asleep when taken in the late evening. Acetaminophen(Tylenol) may be used for fever or pain. Use 1000mg every six hours as needed. Avoid using more than 3000mg in a 24 hour period. (AND/OR) Ibuprofen(Motrin, Advil) may be used for fever or pain. Use 600mg every six hours as needed. Take with food. Avoid using more than 2400mg in a 24 hour period. Do not use 2400mg per day for more than three consecutive days without physician direction. Prolonged inappropriate use can lead to stomach upset or ulcers. Rest and drink plenty of fluids. Doxycycline 100mg: Take one pill twice daily for seven days for your infection. Take with food, but avoid dairy. Avoid prolonged sun exposure since this medication makes you temporarily more susceptible to sunburns. All antibiotics can cause diarrhea. If this occurs and you feel worse or it does not resolve in 1-2 days follow up with your doctor or return to the Emergency Department as this could be signs of serious underlying problems. Any medication can cause an allergic reaction, stop the pills immediately and return to the ER for rash, hives, breathing difficulties, or swelling. Controlling your fever with Tylenol and Ibuprofen as above will make you feel better. Rest and drink plenty of fluids. Avoid strenuous activity until your symptoms resolve and your breathing returns to normal. Continue current medications. Return to the ER for chest pain, difficulty breathing, persistent fevers, vomiting, worsening of your condition, or as needed. Follow-up with family care in 2-3 days. Problem Qualifiers
--- NOTE | 2018-01-15 07:31 | DIAGNOSTIC IMAGING REPORT ---
CHEST 2 VIEWS ROUTINE CLINICAL HISTORY: cough COMPARISON STUDY: 08/13/2017 FINDINGS: The bones soft tissues and hemidiaphragms are normal. The cardiomediastinal silhouette is normal. The lungs are clear. The pulmonary vasculature is normal. IMPRESSION: Negative chest. The above report was generated using voice recognition software. It may contain grammatical, syntax or spelling errors. Electronically signed by: Shekhar Mahoney M.D. 01/15/2018 7:29 AM Dictated Date/Time: 01/15/2018 7:28 AM
== END 2018-01-15 01:39 | disposition home or self-care (01) ==
LOC: C.EDB 22:02 → C.EDC 01-15 01:39
DX: J40 Bronchitis, not specified as acute or chronic (principal); Z87.891 Personal history of nicotine dependence; F41.9 Anxiety disorder, unspecified; Z86.73 Personal history of transient ischemic attack (TIA), and cerebral infarction without residual deficits; F32.9 Major depressive disorder, single episode, unspecified; I10 Essential (primary) hypertension; E78.00 Pure hypercholesterolemia, unspecified; Z80.9 Family history of malignant neoplasm, unspecified; Z83.3 Family history of diabetes mellitus; Z82.49 Family history of ischemic heart disease and other diseases of the circulatory system; Z82.0 Family history of epilepsy and other diseases of the nervous system; Z79.82 Long term (current) use of aspirin; Z79.899 Other long term (current) drug therapy; Z79.84 Long term (current) use of oral hypoglycemic drugs

== ENCOUNTER 2018-11-18 13:19 | Inpatient (IN) ==
--- OUTSIDE RECORDS SUMMARY | 2018-11-18 13:23 | External Medical Summary | Continuity of Care Document ---
:1955 Author Name Bonnie Ross Address Unavailable Unavailable , Care Team Providers Name Role Phone Ciaran Gill M.D. Unavailable [email or web address] Eran ANNE Unavailable Unavailable Problems Active medical history not documented Allergies and Adverse Reactions Allergy history not documented Medications Medications not documented Procedures Procedures not documented Immunizations Immunizations not documented Plan of Treatment Planned Observations Planned Goals not documented Results No Known Results Results not documented
[2018-11-18] MEDS ORDERED: ONDANSETRON INJ 2 MG/ML 2 ML VIAL IV STA (13:37)
[2018-11-18] MEDS ORDERED: ASPIRIN CHEW 324 MG PO STA (13:37)
[2018-11-18] MEDS ORDERED: MoRPHine SULFATE 4 MG/ML 1 ML CARP\\VIAL IV STA (13:37)
[2018-11-18] MEDS ORDERED: SODIUM CHLORIDE 0.9% 1000ML 1,000 ML IV SCH (13:45)
--- NOTE | 2018-11-18 13:51 | Emergency Department Note ---
History of Present Illness General Chief complaint: Headache Stated complaint: HEADACHE,CONGESTION,HX OF STROKE 2010 Time Seen by Provider: 11/18/18 13:31 History of Present Illness Maximum Pain Intensity: 7 This 63-year-old female presents the ER with chief complaint of chest pain and nausea which started at 11 AM today. The patient states that she she has had head and chest congestion for the last 6 days. She has been coughing up yellow sputum. She also admits to runny nose but denies any sore throat or ear pain. The patient states she feels sweaty but has not taken her temperature. She states that she has had chest pain with the cough but today it is in the middle of the chest substernal and describes it as "pain". It does not radiate to the shoulder or arm. The patient does admit to headache and diaphoresis. The patient denies any visual changes. The patient is nauseated but has not vomited. The patient denies any change in mental status. She did not take her blood sugar this morning since her machine is broken. The patient is a known diabetic. She also has hypertension and hyperlipidemia. She also smokes. She does have a history of stroke. Home Medications Home Medications Medication Instructions Recorded Confirmed Type Ranitidine (Zantac) 150 mg PO BID #0 11/20/10 History LEVETIRACETAM (Keppra) 750 mg PO BID #0 09/20/12 History ASPIRIN (ASPIRIN EC) 81 mg PO QAM #0 04/11/15 History CARVEDILOL (COREG) 6.25 mg PO BID #0 04/11/15 History Pantoprazole (Protonix) 40 mg PO QAM #0 04/11/15 History ATORVASTATIN (LIPITOR) 80 mg PO HS #0 04/26/17 History Citalopram (Citalopram 20 mg PO QAM #0 04/26/17 History Hydrobromide) METFORMIN EXT REL (GLUCOPHAGE EXT 500 mg PO QAM #0 04/26/17 History REL) ALBUTEROL HFA (VENTOLIN HFA) 2 - 4 puff INHALATION Q6H PRN #0 08/13/17 History Alprazolam (Xanax) 1 mg PO HS #0 08/13/17 History Amlodipine (Norvasc) 2.5 mg PO QAM #0 08/13/17 History CITALOPRAM HYDROBROMIDE 10 mg PO QAM #0 08/13/17 History Amitriptyline HCl 10 mg PO BID #0 01/15/18 History DOXYCYCLINE HYCLATE (VIBRAMYCIN) 100 mg PO BID 7 Days #14 cap 01/15/18 Rx Allergies Allergy/AdvReac Type Severity Reaction Status Date / Time Cephalosporins Allergy Unknown RASH AND Unverified 08/13/17 08:41 HIVES doxycycline Allergy Unknown DIARREHA Unverified 08/13/17 08:41 Sulfa (Sulfonamide Allergy Unknown "SULFA Verified 08/13/17 08:41 Antibiotics) DRUGS": UNKNOWN Penicillins AdvReac Unknown Unverified 08/13/17 08:41 Past Med/Surg History Medical History Anxiety (Chronic) Depression (Chronic) Seizure (Resolved) Stroke (Resolved) Anxiety (Acute) Cerebral hemorrhage (Resolved 06/09/11) "Temporal lobe hemorrhage, September 2010. Evacuation by Dr. Gill. " Migraine (Chronic 06/09/11) Social History Preferred Language: Irish Visual Impairment: No Limitations Hearing Ability: Normal marital status: Current Living Situation: Spouse Feels Safe at Home: Yes Smoking Status: Current every day smoker Review of Systems A total of 10 systems reviewed and were otherwise negative Physical Exam Vital Signs Vital Signs - 24 hr 11/18/18 13:24 11/18/18 13:50 11/18/18 13:54 Temperature 36.9 C Temperature Source Oral Sepsis Recent Fever Within 48 Hours No Sepsis New/Unexplained Change in Mental Status No Sepsis Action Taken by Nursing No Action Required Pulse Rate 67 63 Pulse Rate from SpO2 Sensor Respiratory Rate 18 23 Respiratory Depth Normal Blood Pressure 163/89 H Blood Pressure Mean 113 Pulse Oximetry 96 87 L Oxygen Delivery Method Room Air Room Air Oxygen Flow Rate 11/18/18 13:58 11/18/18 14:00 11/18/18 14:01 Temperature Temperature Source Sepsis Recent Fever Within 48 Hours Sepsis New/Unexplained Change in Mental Status Sepsis Action Taken by Nursing Pulse Rate 63 68 71 Pulse Rate from SpO2 Sensor 62 69 70 Respiratory Rate 16 13 16 Respiratory Depth Blood Pressure 187/94 H 188/119 H Blood Pressure Mean 125 142 Pulse Oximetry 87 L 85 L 95 Oxygen Delivery Method Room Air Room Air Nasal Cannula Oxygen Flow Rate 2 11/18/18 14:02 11/18/18 14:15 11/18/18 14:16 Temperature Temperature Source Sepsis Recent Fever Within 48 Hours Sepsis New/Unexplained Change in Mental Status Sepsis Action Taken by Nursing Pulse Rate 68 70 70 Pulse Rate from SpO2 Sensor 69 70 70 Respiratory Rate 18 16 13 Respiratory Depth Blood Pressure 187/98 H Blood Pressure Mean 127 Pulse Oximetry 96 93 93 Oxygen Delivery Method Nasal Cannula Nasal Cannula Nasal Cannula Oxygen Flow Rate 2 2 2 11/18/18 14:25 11/18/18 14:30 11/18/18 14:31 Temperature Temperature Source Sepsis Recent Fever Within 48 Hours Sepsis New/Unexplained Change in Mental Status Sepsis Action Taken by Nursing Pulse Rate 73 68 69 Pulse Rate from SpO2 Sensor 72 69 70 Respiratory Rate 15 15 12 Respiratory Depth Blood Pressure 186/101 H 178/113 H Blood Pressure Mean 129 134 Pulse Oximetry 95 93 93 Oxygen Delivery Method Nasal Cannula Nasal Cannula Nasal Cannula Oxygen Flow Rate 2 2 2 PHYSICAL EXAM: Vital Signs were reviewed: Temperature was 36.9 reviewed Nurse's notes and agree. Oxygen saturation is 86 % on room air which is normal . GENERAL: 63-year-old white female appears uncomfortable secondary to all her current symptoms. She does not appear in any respiratory distress. MENTAL STATUS: Alert, oriented, coherent. EARS: Canals clear. TMs good light reflex, no erythema or fluid level noted. NOSE: Nasal mucosa with moderate erythema engorgement. PHARYNX: No erythema, no edema noted. No exudate noted. Airway is adequate. NECK: Supple, non-tender. No lymphadenopathy noted. No carotid bruits noted LUNGS: Patient has scattered rhonchi throughout both lung lo. No wheezes noted. No rales noted. Fair air exchange noted. CARDIAC: Regular rate and rhythm without murmur. SKIN: No rashes noted. LOWER EXTREMITIES: No cyanosis or edema noted. Calves are nontender to palpation. Course Administered Medications Sodium Chloride (Nss 1000ml) 1,000 mls @ 999 mls/hr IV .Q1H1M PINKY Stop: 11/18/18 14:45 Last Infusion: 11/18/18 14:54 Dose: 0 mls/hr Documented by: [id number] Admin: 11/18/18 13:55 Dose: 999 mls/hr Documented by: [id number] Prochlorperazine 10 mg/ (Syringe) 10 mls @ 5 mls/min IV ONE ONE Stop: 11/18/18 14:46 Last Admin: 11/18/18 14:54 Dose: Not Given Documented by: [id number] Nitroglycerin (Nitrostat) 0.4 mg SL UD PRN PRN Reason: Chest Pain Stop: 12/18/18 13:36 Last Admin: 11/18/18 14:25 Dose: 0.4 mg Documented by: [id number] Admin: 11/18/18 14:08 Dose: 0.4 mg Documented by: [id number] Discontinued Medications Aspirin (Aspirin) 324 mg PO NOW STA Stop: 11/18/18 13:38 Last Admin: 11/18/18 14:08 Dose: 324 mg Documented by: [id number] Morphine Sulfate (Morphine Sulfate) 4 mg IV NOW STA Stop: 11/18/18 13:38 Last Admin: 11/18/18 13:55 Dose: 4 mg Documented by: [id number] Ondansetron HCl (Zofran) 4 mg IV NOW STA Stop: 11/18/18 13:38 Last Admin: 11/18/18 13:55 Dose: 4 mg Documented by: [id number] Prochlorperazine (Compazine) Confirm Administered Dose 10 mg .ROUTE .STK-MED ONE Stop: 11/18/18 14:51 Last Admin: 11/18/18 14:54 Dose: 10 mg Documented by: [id number] Medical Decision Making Differential Diagnosis Acute OH, angina, bronchitis, pneumonia, sepsis Medical Records Attestation: I reviewed the patient's medical records. Home Medications Current Medication List: was personally reviewed by me Laboratory Data Attestation: I reviewed the patient's lab results. Result diagrams: 11/18/18 14:00 11/18/18 14:00 Lab Results 11/18/18 11/18/18 11/18/18 Range/Units 14:00 14:00 14:00 WBC 9.75 (4.8-10.8) K/uL RBC 4.69 (4.2-5.4) M/uL Hgb 13.0 (12.0-16.0) g/dL Hct 40.2 (37-47) % MCV 85.7 (80-100) fL MCH 27.7 (25-34) pg MCHC 32.3 (32-36) g/dL RDW Std Deviation 45.9 (36.4-46.3) fL RDW Coeff of Giselle 14.7 H (11.5-14.5) % Plt Count 232 (130-400) K/uL MPV 10.7 H (7.4-10.4) fL Immature Gran % (Auto) 0.2 % Neut % (Auto) 67.2 % Lymph % (Auto) 21.2 % Crowley % (Auto) 10.2 % Eos % (Auto) 0.8 % Baso % (Auto) 0.4 % Immature Gran # (Auto) 0.02 (0.00-0.02) K/uL Neut # (Auto) 6.55 H (1.4-6.5) K/uL Lymph # (Auto) 2.07 (1.2-3.4) K/uL Crowley # (Auto) 0.99 H (0.11-0.59) K/uL Eos # (Auto) 0.08 (0-0.5) K/uL Baso # (Auto) 0.04 (0-0.2) K/uL PT 9.6 (9.0-12.0) Seconds INR 0.9 (0.9-1.1) APTT 23.6 (21.0-31.0) Seconds PTT Ratio 0.9 Sodium 136 (136-145) mmol/L Potassium 3.5 (3.5-5.1) mmol/L Chloride 101 (98-107) mmol/L Carbon Dioxide 25 (21-32) mmol/L Anion Gap 10.0 (3-11) BUN 13 (7-18) mg/dl Creatinine 0.80 (0.6-1.2) mg/dl Est Cr Clr Drug Dosing Not Reportable Est GFR ( Amer) 89.7 Est GFR (Non-Af Amer) 77.4 BUN/Creatinine Ratio 16.3 (10-20) Glucose 178 H (70-99) mg/dl POC Lactic Acid Tex (0.90-1.70) mmol/L Calcium 9.1 (8.5-10.1) mg/dl Total Bilirubin 0.7 (0.2-1) mg/dl AST 20 (15-37) U/L ALT 27 (12-78) U/L Alkaline Phosphatase 150 H (45-117) U/L CK-MB (CK-2) < 1.0 (0.5-3.6) ng/ml Troponin I < 0.015 (0-0.045) ng/ml Total Protein 8.6 H (6.4-8.2) gm/dl Albumin 3.8 (3.4-5.0) gm/dl Globulin 4.8 H (2.5-4.0) gm/dl Albumin/Globulin Ratio 0.8 L (0.9-2) Lipase 115 (73-393) U/L 11/18/18 Range/Units 14:23 WBC (4.8-10.8) K/uL RBC (4.2-5.4) M/uL Hgb (12.0-16.0) g/dL Hct (37-47) % MCV (80-100) fL MCH (25-34) pg MCHC (32-36) g/dL RDW Std Deviation (36.4-46.3) fL RDW Coeff of Giselle (11.5-14.5) % Plt Count (130-400) K/uL MPV (7.4-10.4) fL Immature Gran % (Auto) % Neut % (Auto) % Lymph % (Auto) % Crowley % (Auto) % Eos % (Auto) % Baso % (Auto) % Immature Gran # (Auto) (0.00-0.02) K/uL Neut # (Auto) (1.4-6.5) K/uL Lymph # (Auto) (1.2-3.4) K/uL Crowley # (Auto) (0.11-0.59) K/uL Eos # (Auto) (0-0.5) K/uL Baso # (Auto) (0-0.2) K/uL PT (9.0-12.0) Seconds INR (0.9-1.1) APTT (21.0-31.0) Seconds PTT Ratio Sodium (136-145) mmol/L Potassium (3.5-5.1) mmol/L Chloride (98-107) mmol/L Carbon Dioxide (21-32) mmol/L Anion Gap (3-11) BUN (7-18) mg/dl Creatinine (0.6-1.2) mg/dl Est Cr Clr Drug Dosing Est GFR ( Amer) Est GFR (Non-Af Amer) BUN/Creatinine Ratio (10-20) Glucose (70-99) mg/dl POC Lactic Acid Tex 1.64 (0.90-1.70) mmol/L Calcium (8.5-10.1) mg/dl Total Bilirubin (0.2-1) mg/dl AST (15-37) U/L ALT (12-78) U/L Alkaline Phosphatase (45-117) U/L CK-MB (CK-2) (0.5-3.6) ng/ml Troponin I (0-0.045) ng/ml Total Protein (6.4-8.2) gm/dl Albumin (3.4-5.0) gm/dl Globulin (2.5-4.0) gm/dl Albumin/Globulin Ratio (0.9-2) Lipase (73-393) U/L Imaging Data Attestation: I personally reviewed and interpreted this imaging study as follows: My Impression: No infiltrate noted Radiologist's Impression: XR chest 1V portable CLINICAL HISTORY: Atypical chest pain COMPARISON STUDY: 04/26/2017 FINDINGS: The cardiac and mediastinal contours are normal. There is no evidence of focal pulmonary consolidation. There is no evidence of failure. No pleural effusions are visualized.[ IMPRESSION: No active disease in the chest. Electronically signed by: Tha Lanza M.D. 11/18/2018 1:49 PM ECG Data Indication: chest pain Rhythm: normal sinus Findings: + T-wave inversion Comparison ECG Date: from (January 14, 2018) Change: the following changes noted Additional Comments: New T wave inversions on V3, V4 and V5 Blood Pressure Blood Pressure Findings: Elevated blood pressure Blood Pressure Disposition: elevated BP felt to be situational MDM Narrative The patient was evaluated. The patient was placed on a director of cardiac rehabilitation and continuous pulse ox. IV access was obtained. The patient was given 1 L normal saline wide open. CBC and renal profile, LFTs and lipase levels, coags, CK-MB, troponin, lactic acid were ordered. The patient was given Zofran 4 mg IV, morphine 4 mg IV, nitroglycerin 0.5 sublingual, 324 mg of chewable aspirin. Portable x-ray of the chest was ordered interpreted by the radiologist and my self as above without any evidence of infiltrate or acute findings. The patient had decrease of chest pain with the nitroglycerin. Labs are reviewed. White count was normal. The patient's troponin was less than 0.015. CK-MB, coags were normal. Glucose was elevated at 170. The patient's EKG revealed new T wave inversions on V3 V4 and V5 as compared to her EKG from January 14, 2018. The patient's case was discussed with Dr Boland who agreed with treatment plan. Cardiology and hospitalist were consulted about the patient. The patient was informed of all findings and was in agreement with treatment plan.. I spoke with Dr. Rush, cardiology about the patient. He will see the patient in consult if needed. Hospitalist was consulted for admission. Impression & Plan Chest pain, T wave inversion in EKG Discharge Plan Visit Data Chief Complaint: Headache Stated Complaint: HEADACHE,CONGESTION,HX OF STROKE 2010 ED Provider: Manish Boland ED Midlevel Provider: Sayra Mahoney Discharge Problem: Chest pain, T wave inversion in EKG Patient Disposition: Being Evaluated by Hospitalist Condition: Good Forms Stand Alone Forms: My [facility] [employer] Prescriptions Prescriptions: No Action Ranitidine (Zantac) 150 MG tablet 150 mg PO BID Qty: 0 RF: 0 LEVETIRACETAM (Keppra) 750 MG tablet 750 mg PO BID Qty: 0 RF: 0 ASPIRIN (ASPIRIN EC) 81 MG tablet 81 mg PO QAM Qty: 0 RF: 0 CARVEDILOL (COREG) 6.25 MG tablet 6.25 mg PO BID Qty: 0 RF: 0 Pantoprazole (Protonix) 40 MG tablet 40 mg PO QAM Qty: 0 RF: 0 ATORVASTATIN (LIPITOR) 80 MG tablet 80 mg PO HS Qty: 0 RF: 0 Citalopram (Citalopram Hydrobromide) 20 MG tablet 20 mg PO QAM Qty: 0 RF: 0 METFORMIN EXT REL (GLUCOPHAGE EXT REL) 500 MG tablet 500 mg PO QAM Qty: 0 RF: 0 Alprazolam (Xanax) 1 MG tablet 1 mg PO HS Qty: 0 RF: 0 Amlodipine (Norvasc) 2.5 MG tablet 2.5 mg PO QAM Qty: 0 RF: 0 CITALOPRAM HYDROBROMIDE 10 MG tablet 10 mg PO QAM Qty: 0 RF: 0 ALBUTEROL HFA (VENTOLIN HFA) 200 PUFFS/18,000 MCG AEROSOL,SOLN 2 - 4 puff Inhalation Q6H PRN (Reason: Shortness of Breath) Qty: 0 RF: 0 DOXYCYCLINE HYCLATE (VIBRAMYCIN) 100 MG capsule 100 mg PO BID 7 Days Qty: 14 RF: 0 Amitriptyline HCl 10 MG tablet 10 mg PO BID Qty: 0 RF: 0 Referrals Referrals: Anthony Garay MD [Primary Care Provider] -
[2018-11-18] MEDS: NITROGLYCERIN SL 0.4 MG/TAB TAB SL PRN ×2 (14:08→14:25)
[2018-11-18 14:11] LABS: Basophils # (auto) 0.04 K/uL (0-0.2); Basophils % (auto) 0.4 %; Eosinophils # (auto) 0.08 K/uL (0-0.5); Eosinophils % (auto) 0.8 %; Hematocrit (blood only) 40.2 % (37-47); Immature Granulocytes # (auto) 0.02 K/uL (0.00-0.02); Immature Granulocytes % (auto) 0.2 %; Lymphocytes # (auto) 2.07 K/uL (1.2-3.4); Lymphocytes % (auto) 21.2 %; Mean Corpuscular Hgb Conc 32.3 g/dL (32-36); Mean Corpuscular Volume 85.7 fL (80-100); Mean Platelet Volume 10.7 fL (7.4-10.4); Monocytes # (auto) 0.99 K/uL (0.11-0.59); Monocytes % (auto) 10.2 %; Neutrophils # (auto) 6.55 K/uL (1.4-6.5); Neutrophils % (auto) 67.2 %; Platelet Count 232 K/uL (130-400); RDW Coefficient of Variation 14.7 % (11.5-14.5); RDW Standard Deviation 45.9 fL (36.4-46.3); Red Blood Count 4.69 M/uL (4.2-5.4); White Blood Count 9.75 K/uL (4.8-10.8)
[2018-11-18 14:22] LABS: INR 0.9 (0.9-1.1); Partial Thromboplastin Ratio 0.9; Partial Thromboplastin Time 23.6 Seconds (21.0-31.0); Prothrombin Time 9.6 Seconds (9.0-12.0)
[2018-11-18 14:28] LABS: Alanine Aminotransferase 27 U/L (12-78); Albumin Level 3.8 gm/dl (3.4-5.0); Aspartate Aminotransferase 20 U/L (15-37); BUN Creatinine Ratio 16.3 (10-20); Blood Urea Nitrogen 13 mg/dl (7-18); Calcium 9.1 mg/dl (8.5-10.1); Carbon Dioxide 25 mmol/L (21-32); Chloride 101 mmol/L (98-107); Est GFR (African American) 89.7; Est GFR (Non-African American) 77.4; Glucose 178 mg/dl (70-99); Potassium 3.5 mmol/L (3.5-5.1); Sodium 136 mmol/L (136-145)
[2018-11-18 14:33] LABS: Albumin Globulin Ratio 0.8 (0.9-2); Alkaline Phosphatase 150 U/L (45-117); Bilirubin,Total 0.7 mg/dl (0.2-1); Creatine Kinase MB < 1.0 ng/ml (0.5-3.6); Globulin 4.8 gm/dl (2.5-4.0); Total Protein 8.6 gm/dl (6.4-8.2); Troponin I < 0.015 ng/ml (0-0.045)
[2018-11-18] MEDS ORDERED: PROCHLORPERAZINE 10 MG in SYRINGE 8 ML IV ONE (14:45)
[2018-11-18] MEDS ORDERED: PROCHLORPERAZINE 5 MG/ML 2 ML VIAL ONE (14:50)
[2018-11-18] MEDS ORDERED: NITROGLYCERIN 2% OINTMENT 30GM TUBE ONE (15:25)
--- NOTE | 2018-11-18 15:49 | Cardiology Consultation ---
Date of Consultation November 18, 2018 Assessment & Plan (1) Chest pain: (2) T wave inversion in EKG: (3) RBBB: (4) HTN (hypertension): (5) Bronchitis: 63-year-old patient presented to the emergency department with headache and atypical chest discomfort. Treated with sublingual nitroglycerin and morphine with resolution of symptoms. Blood pressure remains elevated secondary to recent prescription of prednisone due to acute bronchitis. Review of prior ECG demonstrates right bundle branch block with anterior lateral T wave inversions. No significant change when compared to prior tracings. Initial cardiac enzymes are undetectable. Recommend repeat troponin x3 sets. Resting 2D transthoracic echocardiogram ordered. Topical nitrates applied to improve blood pressure control. Continue outpatient antihypertensive medications including amlodipine, and carvedilol. Per review of outpatient records, borderline systolic hypotension (SBP 110mmHg) noted dating back to July 2018. Patient would derive benefit from addition of CARLENE inhibitor if tolerated. Continue aspirin and statin. Prednisone taper as per internal medicine. Further recommendations pending review of testing and clinical course. Thank you for allowing me to participate in the care of your patient. History of Present Illness Reason for Consultation: Chest pain, abnormal EKG Requesting Physician: Denzel MOSES (ER ) Dr. Irizarry Attending Physician: Dr. Irizarry History of Present Illness 63-year-old female presented to the emergency department with headache, chest discomfort, and generalized feeling of unwellness. Patient prescribed prednisone taper 3 days ago by her PCP due to bronchitis and reactive airways disease. She is on the third day of a prednisone taper. Took 50 mg over the past 2 days and 40 mg this morning. Blood pressure significantly elevated on presentation. Patient treated with sublingual nitroglycerin and morphine. Chest pain and headache have resolved. Contacted by ER due to abnormal ECG. ECG compared to most recent study performed in my office 10/12/2018 without significant change. Initial cardiac enzymes are negative. is present at the bedside. Complex history including carotid disease, mild lower extremity peripheral arterial disease and CVA. 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 Underwent left carotid endarterectomy in [address] Alvares at [facility]. Postprocedure she developed a left parietotemporal intracranial hemorrhage likely due to reperfusion injury that required surgical evacuation by neuro surgery (Dr. Gill) at [facility]. Patient seen and examined the bedside in the ER. Denies any chest pain at this time. Sinus rhythm on telemetry. Reports feeling fatigued. No orthopnea or paroxysmal nocturnal dyspnea. Denies palpitations, lightheadedness, dizziness, syncope, or near syncope. Allergies Allergy/AdvReac Type Severity Reaction Status Date / Time Cephalosporins Allergy Unknown RASH AND Unverified 08/13/17 08:41 HIVES doxycycline Allergy Unknown DIARREHA Unverified 08/13/17 08:41 Sulfa (Sulfonamide Allergy Unknown "SULFA Verified 08/13/17 08:41 Antibiotics) DRUGS": UNKNOWN Penicillins AdvReac Unknown Unverified 08/13/17 08:41 Home Medications Home Medications Medication Instructions Recorded Confirmed Type Ranitidine (Zantac) 150 mg PO BID #0 11/20/10 History LEVETIRACETAM (Keppra) 750 mg PO BID #0 09/20/12 History ASPIRIN (ASPIRIN EC) 81 mg PO QAM #0 04/11/15 History CARVEDILOL (COREG) 6.25 mg PO BID #0 04/11/15 History Pantoprazole (Protonix) 40 mg PO QAM #0 04/11/15 History ATORVASTATIN (LIPITOR) 80 mg PO HS #0 04/26/17 History Citalopram (Citalopram 20 mg PO QAM #0 04/26/17 History Hydrobromide) METFORMIN EXT REL (GLUCOPHAGE EXT 500 mg PO QAM #0 04/26/17 History REL) ALBUTEROL HFA (VENTOLIN HFA) 2 - 4 puff INHALATION Q6H PRN #0 08/13/17 History Alprazolam (Xanax) 1 mg PO HS #0 08/13/17 History Amlodipine (Norvasc) 2.5 mg PO QAM #0 08/13/17 History CITALOPRAM HYDROBROMIDE 10 mg PO QAM #0 08/13/17 History Amitriptyline HCl 10 mg PO BID #0 01/15/18 History DOXYCYCLINE HYCLATE (VIBRAMYCIN) 100 mg PO BID 7 Days #14 cap 01/15/18 Rx Patient History Medical History Anxiety (Chronic) Depression (Chronic) Seizure (Resolved) Stroke (Resolved) Anxiety (Acute) Cerebral hemorrhage (Resolved 06/09/11) "Temporal lobe hemorrhage, September 2010. Evacuation by Dr. Gill. " Migraine (Chronic 06/09/11) Social History Preferred Language: Kinyarwanda Visual Impairment: No Limitations Hearing Ability: Normal marital status: Current Living Situation: Spouse Feels Safe at Home: Yes Smoking Status: Current every day smoker Review of Systems Review of Systems: All systems reviewed & are unremarkable except as noted in HPI & below Physical Exam Physical Exam: General: NAD, AAO x3, well nourished. Overweight. HEENT: Normocephalic. Atraumatic. Conjunctiva pink, no scleral icterus. Neck: No carotid bruits, the carotid upstrokes are brisk. Well-healed left-sided carotid endarterectomy incision. No JVD. No HJR Heart: Regular normal S-1 and S-2 no S- 3 or S-4 gallop. No murmurs or rub appreciated. PMI is not displaced. No RV heave. Lungs: Scattered rhonchi bilateral. End expiratory wheezing noted. Abdomen: Normal bowel sounds. Soft. Nontender. No masses or organomegaly. No abdominal bruits. Extremities: No clubbing, cyanosis, or edema. Pulses: radial=2/4, Dorsalis pedis =3/4. Neuro: Cranial nerves grossly intact. No focal motor deficit. Results & Data Vital Signs (Past 12 Hours) Vital Signs Temp Pulse Resp BP Pulse Ox 11/18/18 15:16 68 15 181/91 H 96 11/18/18 15:02 68 15 152/76 H 93 11/18/18 14:31 69 12 178/113 H 93 11/18/18 14:30 68 15 93 11/18/18 14:25 73 15 186/101 H 95 11/18/18 14:16 70 13 187/98 H 93 11/18/18 14:15 70 16 93 11/18/18 14:02 68 18 96 11/18/18 14:01 71 16 188/119 H 95 11/18/18 14:00 68 13 85 L 11/18/18 13:58 63 16 187/94 H 87 L 11/18/18 13:54 63 23 11/18/18 13:50 87 L 11/18/18 13:24 36.9 C 67 18 163/89 H 96 Laboratory Results Laboratory Results - last 24 hr 11/18/18 11/18/18 11/18/18 14:00 14:00 14:00 WBC 9.75 RBC 4.69 Hgb 13.0 Hct 40.2 MCV 85.7 MCH 27.7 MCHC 32.3 RDW Std Deviation 45.9 RDW Coeff of Giselle 14.7 H Plt Count 232 MPV 10.7 H Immature Gran % (Auto) 0.2 Neut % (Auto) 67.2 Lymph % (Auto) 21.2 Taney % (Auto) 10.2 Eos % (Auto) 0.8 Baso % (Auto) 0.4 Immature Gran # (Auto) 0.02 Neut # (Auto) 6.55 H Lymph # (Auto) 2.07 Taney # (Auto) 0.99 H Eos # (Auto) 0.08 Baso # (Auto) 0.04 PT 9.6 INR 0.9 APTT 23.6 PTT Ratio 0.9 Sodium 136 Potassium 3.5 Chloride 101 Carbon Dioxide 25 Anion Gap 10.0 BUN 13 Creatinine 0.80 Est Cr Clr Drug Dosing Not Reportable Est GFR ( Amer) 89.7 Est GFR (Non-Af Amer) 77.4 BUN/Creatinine Ratio 16.3 Glucose 178 H POC Lactic Acid Tex Calcium 9.1 Total Bilirubin 0.7 AST 20 ALT 27 Alkaline Phosphatase 150 H CK-MB (CK-2) < 1.0 Troponin I < 0.015 Total Protein 8.6 H Albumin 3.8 Globulin 4.8 H Albumin/Globulin Ratio 0.8 L Lipase 115 11/18/18 14:23 WBC RBC Hgb Hct MCV MCH MCHC RDW Std Deviation RDW Coeff of Giselle Plt Count MPV Immature Gran % (Auto) Neut % (Auto) Lymph % (Auto) Taney % (Auto) Eos % (Auto) Baso % (Auto) Immature Gran # (Auto) Neut # (Auto) Lymph # (Auto) Taney # (Auto) Eos # (Auto) Baso # (Auto) PT INR APTT PTT Ratio Sodium Potassium Chloride Carbon Dioxide Anion Gap BUN Creatinine Est Cr Clr Drug Dosing Est GFR ( Amer) Est GFR (Non-Af Amer) BUN/Creatinine Ratio Glucose POC Lactic Acid Tex 1.64 Calcium Total Bilirubin AST ALT Alkaline Phosphatase CK-MB (CK-2) Troponin I Total Protein Albumin Globulin Albumin/Globulin Ratio Lipase (1) Chest pain Chest pain type: unspecified Qualified Code(s): R07.9 - Chest pain, unspecified (2) HTN (hypertension) Hypertension type: essential hypertension Qualified Code(s): I10 - Essential (primary) hypertension
--- NOTE | 2018-11-18 16:12 | History & Physical Report ---
Date of Service November 18, 2018 Assessment & Plan (1) Chest pain: (2) HTN (hypertension): This is a 63-year-old female who has a significant past medical history of hemorrhagic CVA in 2010, T2DM, HTN, HLD, CARON on CPAP, PVD, carotid artery stenosis status post left CEA, seizure disorder secondary to CVA, GERD, history of tobacco abuse who presents to [facility] ED secondary to chest pain, headache, ill feeling since 11 AM. In ED patient found to be significantly hypertensive 188/119 Her CBC and CMP relatively unremarkable except hyperglycemia with glucose 178, alk phos 150 CXR reveals no active disease Troponin within normal limits and no ECG changes Chest pain improved with sublingual nitro and IV morphine Patient was seen and evaluated in ED by cardiology Chest pain likely secondary to significant hypertension Patient normally runs low blood pressure in the outpatient setting but was recently started on prednisone, took 50 mg twice daily on 11/17 and 40 mg Significant hypertension may be in setting of prednisone use - will taper off Cardiology ordered Nitropaste, echocardiogram, recommend improved blood pressure controlled - continue outpatient medication Admit to telemetry Cycle troponins x2 Echocardiogram ordered Nitropaste 1 inch every 6 hours, blood pressure has improved systolically to 150s A1C, fasting lipid panel in a.m. NPO after midnight in event of cardiac testing (3) Bronchitis: Placed on prednisone taper in outpatient setting starting at 50 mg. Had 50 mg twice daily on 11/17, 40 mg this a.m. Will taper down to 20 mg daily for 3 days and then discontinue Pulmonary toilet with Xopenex neb treatments, incentive spirometry, flutter valve No antibiotic indicated at this time - will check procalcitonin in a.m. (4) History of CVA (cerebrovascular accident): hx of hemorrhagic cva s/p L CEA no residual deficits continue ASA and statin (5) Carotid artery stenosis: continue ASA, Statin hx of L CEA, R total occlusion (6) T2DM (type 2 diabetes mellitus): A1C 6.5 08/18/18 hold metformin Novolog per protocol A1C in a.m. (7) HLD (hyperlipidemia): continue statin fasting lipid panel (8) Seizure disorder as sequela of cerebrovascular accident: continue keppra no seizure noted (9) Hidradenitis suppurativa: Patient seen by dermatology on 11/16/2018 secondary to active cyst with hidradenitis She underwent I&D of left labial cyst She was started on rifampin and clindamycin in combination until November follow-up Since initiating above antibiotics patient has had GI upset, nausea, decreased appetite Spoke with Derm Dr. Villa who agrees discontinuing oral antibiotics for now Will place on clindamycin gel to apply topically to labial lesions until seen by Derm in follow up November (10) CARON on CPAP: Cpap at (11) Depression: mood stable on amitriptyline and celexa (12) DVT prophylaxis: SCDS/TEDS monitor daily for need for chemical VTE prophylaxis Disposition: D/C to home when able Follow up: PCP Dr. Garay Patient was seen and examined in collaboration with Dr. Irizarry, please see addendum Starting 11/19/18 patient will be under the care of Dr. Corcoran History of Present Illness Chief Complaint: ULLOA, Chest Pain, ill feeling starting at 11am. Primary Care Provider: Anthony Garay MD This is a 63-year-old female who has a significant past medical history of hemorrhagic CVA in 2010, T2DM, HTN, HLD, CARON on CPAP, PVD, carotid artery stenosis status post left CEA, seizure disorder secondary to CVA, GERD, history of tobacco abuse who presents to [facility] ED secondary to chest pain, headache, ill feeling since 11 AM. is at bedside. At approximately 11 AM today patient developed frontal headache, left-sided chest pain, ill feeling, nausea, diaphoresis. Chest pain was left-sided, nonradiating, nothing made worse or better including deep breaths or movement, rated 6 out of 10. Currently states chest pain is absent after administration of nitro. Still nauseated and had episode of emesis. Denies hematemesis or hemoptysis. Also she has been having upper respiratory symptoms specifically a cough for approximately 1 week. Initially cough was productive but now is dry and hoarse. She does have associated wheezing. She denies any lightheadedness, dizziness, change in vision, change in hearing, fever, chills, shortness of breath or palpitations, hemoptysis, diarrhea, dysuria, increased urgency or frequency with urination. Overall for the past 2 days she has noted some GI upset including nausea, dyspepsia and decreased appetite. According to patient was prescribed outpatient prednisone taper secondary to cough on 11/16 due to inability to see provider. She took a 50 mg dose x2 yesterday and a 40 mg dose this morning. Also of note she was recently seen by dermatology secondary to lesion in the labia. She had an I&D and was diagnosed with hidradenitis suppurativa and was prescribed rifampin and clindamycin to be taken as prescribed until November follow-up starting on 11/16. Allergies Allergy/AdvReac Type Severity Reaction Status Date / Time Cephalosporins Allergy Unknown RASH AND Unverified 11/18/18 16:02 HIVES doxycycline Allergy Unknown DIARREHA Unverified 11/18/18 16:02 Sulfa (Sulfonamide Allergy Unknown "SULFA Verified 11/18/18 16:02 Antibiotics) DRUGS": UNKNOWN prednisone AdvReac Intermediate Significant Verified 11/18/18 19:04 HTN, nausea Penicillins AdvReac Unknown Unknown Unverified 11/18/18 16:02 Home Medications Home Medications Medication Instructions Recorded Confirmed Type adjuvant AS01B (PF)vial 1 of 2 0.5 ml IM DIRECTED 11/18/18 11/18/18 History [Shingrix Adjuvant Component-PF] albuterol sulfate 2 puff INHALATION QID 11/18/18 11/18/18 History alprazolam 1 mg PO HS PRN 11/18/18 11/18/18 History amitriptyline 20 mg PO HS 11/18/18 11/18/18 History amlodipine 2.5 mg PO QAM 11/18/18 11/18/18 History aspirin 81 mg PO QAM 11/18/18 11/18/18 History atorvastatin 80 mg PO QAM 11/18/18 11/18/18 History carvedilol 6.25 mg PO BID 11/18/18 11/18/18 History citalopram 20 mg PO QAM 11/18/18 11/18/18 History clindamycin HCl 300 mg PO TID 11/18/18 11/18/18 History clindamycin phosphate 1 applic TOPICAL DAILY 11/18/18 11/18/18 History fluticasone furoate 50 mcg INHALATION DAILY 11/18/18 11/18/18 History levetiracetam 750 mg PO BID 11/18/18 11/18/18 History loratadine 10 mg PO QAM 11/18/18 11/18/18 History metformin 500 mg PO QAM 11/18/18 11/18/18 History pantoprazole 40 mg PO QAM 11/18/18 11/18/18 History polyethylene glycol 3350 [Miralax] 17 g PO DAILY PRN 11/18/18 11/18/18 History prednisone 5 mg PO QAM 11/18/18 11/18/18 History ranitidine HCl 150 mg PO BID PRN 11/18/18 11/18/18 History rifampin 300 mg PO BID 11/18/18 11/18/18 History triamcinolone acetonide 1 applic TOPICAL BID 11/18/18 11/18/18 History Past Med/Surg History Medical History History of CVA (cerebrovascular accident) (Chronic) history of left parietotemporal intracranial hemorrhage status post left CEA likely due to reperfusion injury that required surgical evacuation by neuro Dr. Gill at [facility]. On seizure prophylaxis post procedure. CARON on CPAP (Chronic) Carotid artery stenosis (Chronic) Seizure disorder as sequela of cerebrovascular accident (Chronic) Hidradenitis suppurativa (Chronic) HLD (hyperlipidemia) (Chronic) T2DM (type 2 diabetes mellitus) (Chronic) HTN (hypertension) (Chronic) RBBB (Chronic) Depression (Chronic) Anxiety (Chronic) Cerebral hemorrhage (Chronic 06/09/11) "Temporal lobe hemorrhage, September 2010. Evacuation by Dr. Gill. " Migraine (Chronic 06/09/11) Surgical History History of left-sided carotid endarterectomy (Chronic) History of breast biopsy (Chronic) History of colonoscopy with polypectomy (Chronic) History of hysterectomy with oophorectomy (Chronic) History of tubal ligation (Chronic) History of evacuation of hematoma (Chronic) Dr. Gill 2010 left parietal temporal hematoma evacuation Family History Mother Alzheimer disease CKD (chronic kidney disease) Father Vascular disease Social History Preferred Language: French Communication Ability: Effective Visual Impairment: No Limitations Hearing Ability: Normal Behavior Interventionist Required: No marital status: Current Living Situation: Spouse Other Information That Helps Us Care for You: No Feels Safe at Home: Yes Safety Concerns: Feels Safe At This Time Smoking Status: Former smoker packs per day: 1 Years Smoked: 21 Do You Dip or Chew Tobacco: No Smoking End Date: quit in 2010 Hx Alcohol Use: No Hx Substance Use: No Review of Systems Review of Systems: As noted per HPI, 10 systems reviewed and negative unless noted above. Physical Exam Physical Exam: Gen: Ill-appearing, female, appears older than stated age, NAD but vomited, sitting up in bed, pleasant but flat affect, conversing easily Head: Normocephalic, Atraumatic Eyes: Sclera normal, no conjunctival injection, PERRLA, EOMI ENT: Gross hearing intact, normal pharynx, mucous membranes dry Neck: supple, no adenopathy, No JVD, no bruit, Resp: Clear to auscultation b/l, prolonged expiratory phase with bibasilar expiratory wheezing, no rales rhonchi. 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 Extremities: No edema bilaterally Skin: warm, moist, no rash, negative turgor, cap refill < 2sec + left labial lesion x 2 with open pore, no surrounding erythema or drainage, nontender to touch Neuro: Alert and oriented x 3, speech normal, good mood/affect, cran nerve 2-12 intact grossly : deferred Results & Data Vital Signs (Past 12 Hours) Vital Signs Temp Pulse Resp BP Pulse Ox 11/18/18 15:16 68 15 181/91 H 96 11/18/18 15:02 68 15 152/76 H 93 11/18/18 14:31 69 12 178/113 H 93 11/18/18 14:30 68 15 93 11/18/18 14:25 73 15 186/101 H 95 11/18/18 14:16 70 13 187/98 H 93 11/18/18 14:15 70 16 93 11/18/18 14:02 68 18 96 11/18/18 14:01 71 16 188/119 H 95 11/18/18 14:00 68 13 85 L 11/18/18 13:58 63 16 187/94 H 87 L 11/18/18 13:54 63 23 11/18/18 13:50 87 L 11/18/18 13:24 36.9 C 67 18 163/89 H 96 Laboratory Results Short CBC 11/18/18 Range/Units 14:00 WBC 9.75 (4.8-10.8) K/uL Hgb 13.0 (12.0-16.0) g/dL Hct 40.2 (37-47) % Plt Count 232 (130-400) K/uL BMP 11/18/18 14:00 Sodium 136 Potassium 3.5 Chloride 101 Carbon Dioxide 25 BUN 13 Creatinine 0.80 Glucose 178 H Calcium 9.1 Cardiac Enzymes 11/18/18 Range/Units 14:00 CK-MB (CK-2) < 1.0 (0.5-3.6) ng/ml Troponin I < 0.015 (0-0.045) ng/ml Liver Function 11/18/18 Range/Units 14:00 Total Bilirubin 0.7 (0.2-1) mg/dl AST 20 (15-37) U/L ALT 27 (12-78) U/L Alkaline Phosphatase 150 H (45-117) U/L Albumin 3.8 (3.4-5.0) gm/dl Diagnostic Findings CXR: FINDINGS: The cardiac and mediastinal contours are normal. There is no evidence of focal pulmonary consolidation. There is no evidence of failure. No pleural effusions are visualized.[ IMPRESSION: No active disease in the chest. Medications Administered Nitroglycerin (Nitrostat) 0.4 mg SL UD PRN PRN Reason: Chest Pain Stop: 12/18/18 13:36 Last Admin: 11/18/18 14:25 Dose: 0.4 mg Documented by: [id number] Admin: 11/18/18 14:08 Dose: 0.4 mg Documented by: [id number] Discontinued Medications Aspirin (Aspirin) 324 mg PO NOW STA Stop: 11/18/18 13:38 Last Admin: 11/18/18 14:08 Dose: 324 mg Documented by: [id number] Sodium Chloride (Nss 1000ml) 1,000 mls @ 999 mls/hr IV .Q1H1M PINKY Stop: 11/18/18 14:45 Last Infusion: 11/18/18 14:54 Dose: 0 mls/hr Documented by: [id number] Admin: 11/18/18 13:55 Dose: 999 mls/hr Documented by: [id number] Prochlorperazine 10 mg/ (Syringe) 10 mls @ 5 mls/min IV ONE ONE Stop: 11/18/18 14:46 Last Admin: 11/18/18 14:54 Dose: Not Given Documented by: [id number] Morphine Sulfate (Morphine Sulfate) 4 mg IV NOW STA Stop: 11/18/18 13:38 Last Admin: 11/18/18 13:55 Dose: 4 mg Documented by: [id number] Nitroglycerin (Nitro-Bid 2%) Confirm Administered Dose 18 inch .ROUTE .STK-MED ONE Stop: 11/18/18 15:26 Last Admin: 11/18/18 15:28 Dose: 1 inch Documented by: [id number] Ondansetron HCl (Zofran) 4 mg IV NOW STA Stop: 11/18/18 13:38 Last Admin: 11/18/18 13:55 Dose: 4 mg Documented by: [id number] Prochlorperazine (Compazine) Confirm Administered Dose 10 mg .ROUTE .STK-MED ONE Stop: 11/18/18 14:51 Last Admin: 11/18/18 14:54 Dose: 10 mg Documented by: [id number] ECG Rhythm: normal sinus Findings: + RBBB and + T-wave inversion (V2-4) Additional Comments: No apparent change since prior ecg per Cardiology consultation Code Status & VTE Plan Code Status Full Code VTE Prophylaxis Plan VTE Prophylaxis will be ordered: Yes Supervising Physician Co-Signing Physician Notes Pt was seen and examined. Agreed with Gricel MOSES exam, assessment and plan. 63-year-old female with past medical history of hemorrhagic CVA in 2010, T2DM, HTN, HLD, CARON on CPAP, PVD, carotid artery stenosis status post left CEA, seizure disorder secondary to CVA, GERD, history of tobacco abuse who presents to [facility] ED for chest pain and headache. Pt said that she was recently starting on prednisone for bronchitis and clindamycin and rifampin was starting by dermatology for hidradenitis. said nausea and feeling ill since to since to start after starting the meds. Pt said that she developed left side non radiating chest pain. Initial troponin on admission was negative. BP elevated on admission. Case discussed with cardiology on admission that reviewed previous ECG demonstrates right bundle branch block with anterior lateral T wave inversions with significant change when compared previous EKG. 2nd set troponin 0.2. Pt denies any chest pain currently. Elevated troponin might be related to Elevate BP on admission. Will treat for NSTEMI for now with Heparin drip and aspirin 81mg. Cardiology was notified. Will monitor troponin. Will get an echo in am. Continue monitor closely. Please refer to Gricel MOSES documentation for other problems. MD Juan C (1) Chest pain Chest pain type: unspecified Qualified Code(s): R07.9 - Chest pain, unspecified (2) HTN (hypertension) Hypertension type: essential hypertension Qualified Code(s): I10 - Essential (primary) hypertension
[2018-11-18] MEDS ORDERED: GLUCOSE 10 TABS/TUBE PO PRN (17:19)
[2018-11-18] MEDS ORDERED: POLYETHYLENE (MIRALAX) 17 GM PACK PO PRN (17:19)
[2018-11-18] MEDS ORDERED: MAGNESIUM HYDROXIDE SUSP 30 ML UDC PO PRN (17:19)
[2018-11-18] MEDS ORDERED: DEXTROSE 50% 50 ML SYRINGE IV PRN (17:19)
[2018-11-18] MEDS ORDERED: CARBOHYDRATES FOR HYPOGLYCEMIA PO PRN (17:19)
[2018-11-18] MEDS ORDERED: GLUCAGON FOR INJ 1 MG VIAL SQ PRN (17:19)
[2018-11-18] MEDS ORDERED: ALUMINUM/MAGNESIUM SUSP 30 ML UDC PO PRN (17:19)
[2018-11-18] MEDS ORDERED: GLUCOSE 40% GEL 15 GM TUBE PO PRN (17:19)
[2018-11-18] MEDS: NITROGLYCERIN 2% OINTMENT 30GM TUBE EXT SCH ×2 (17:35→21:27)
[2018-11-18] MEDS ORDERED: NITROGLYCERIN 2% OINTMENT 30GM TUBE EXT SCH (18:00)
[2018-11-18] MEDS: INSULIN ASPART 100 UNITS/ML 3 ML PEN SC SCH ×2 (18:30→21:53)
[2018-11-18] MEDS ORDERED: ALPRAZolam 0.5 MG TABLET PO PRN (18:33)
[2018-11-18] MEDS: LEVALBUTEROL HCL 0.63 MG/3 ML NEB NEB SCH (19:23)
[2018-11-18] MEDS: ONDANSETRON INJ 2 MG/ML 2 ML VIAL IV PRN (20:17)
[2018-11-18] MEDS ORDERED: Heparin IV Standard *NO* Bolus IV SCH (20:42)
[2018-11-18] MEDS ORDERED: Heparin Adult STANDARD Wt-Based Dextrose 5% 25,000 units/500 mL IV SCH (21:15)
[2018-11-18] MEDS: CLINDAMYCIN PHOS 2% VAG 7 APPLN/40 GM TUBE PV SCH (21:29)
[2018-11-18] MEDS ORDERED: PROMETHAZINE HCL 12.5 MG in SODIUM CHLORIDE 0.9% 50 ML IV STA (22:17)
[2018-11-18] MEDS ORDERED: levETIRAcetam 750 MG in DEXTROSE 5% 100 ML IV ONE (22:20)
[2018-11-18] MEDS ORDERED: METOPROLOL TARTRATE 1 MG/ML VIAL IV ONE (22:20)
[2018-11-18] MEDS: CARVEDILOL 6.25 MG TAB PO SCH (22:22)
[2018-11-18] MEDS: AMITRIPTYLINE HCL 10 MG TAB PO SCH (22:23)
[2018-11-18] MEDS: levETIRAcetam 250 MG TAB PO SCH (22:23)
[2018-11-19] MEDS: LEVALBUTEROL HCL 0.63 MG/3 ML NEB NEB SCH ×3 (02:47→14:04)
[2018-11-19] MEDS: NITROGLYCERIN 2% OINTMENT 30GM TUBE EXT SCH ×4 (03:16→22:09)
[2018-11-19 03:37] LABS: Hematocrit (blood only) 41.3 % (37-47); Hemoglobin 13.3 g/dL (12.0-16.0); Mean Corpuscular Hgb Conc 32.2 g/dL (32-36); Mean Platelet Volume 10.5 fL (7.4-10.4); Platelet Count 249 K/uL (130-400); RDW Coefficient of Variation 14.5 % (11.5-14.5); RDW Standard Deviation 45.7 fL (36.4-46.3); White Blood Count 7.93 K/uL (4.8-10.8)
[2018-11-19 03:49] LABS: Partial Thromboplastin Ratio 1.5; Partial Thromboplastin Time 39.6 Seconds (21.0-31.0)
[2018-11-19 03:58] LABS: BUN Creatinine Ratio 15.5 (10-20); Calcium 8.6 mg/dl (8.5-10.1); Creatinine Clr Calc Pharmacy 76.5 ml/min; Est GFR (African American) 105.4; Est GFR (Non-African American) 90.9; Potassium 3.7 mmol/L (3.5-5.1)
[2018-11-19] MEDS ORDERED: HEPARIN IV BOLUS 5,000 UNITS in SYRINGE 0 ML IV ONE (04:15)
[2018-11-19 06:23] LABS: Estimated Average Glucose 143 mg/dl; Hemoglobin A1C 6.6 % (4.5-5.6)
[2018-11-19] MEDS ORDERED: PERFLUTREN LIPID MICROSPHERE (DEFINITY) IV ONE (07:09)
[2018-11-19] MEDS: INSULIN ASPART 100 UNITS/ML 3 ML PEN SC SCH ×4 (08:41→20:33)
[2018-11-19] MEDS ORDERED: AMLODIPINE BESYLATE 5 MG TAB PO SCH (09:00)
[2018-11-19] MEDS ORDERED: predniSONE 20 MG TAB PO SCH (09:00)
[2018-11-19] MEDS: ASPIRIN 81 MG ECTAB PO SCH (09:09)
[2018-11-19] MEDS: CLINDAMYCIN PHOS 2% VAG 7 APPLN/40 GM TUBE PV SCH ×2 (09:09→20:31)
[2018-11-19] MEDS: LORATADINE 10 MG TAB PO SCH (09:09)
[2018-11-19] MEDS: CARVEDILOL 6.25 MG TAB PO SCH (09:10)
[2018-11-19] MEDS: CITALOPRAM 20 MG TAB PO SCH (09:10)
[2018-11-19] MEDS: levETIRAcetam 250 MG TAB PO SCH ×2 (09:10→20:32)
[2018-11-19] MEDS: ATORVASTATIN 40 MG TAB PO SCH (09:10)
[2018-11-19] MEDS: PANTOprazole 40 MG TAB PO SCH (09:10)
[2018-11-19] MEDS: ACETAMINOPHEN 325 MG TAB PO PRN (09:13)
[2018-11-19 11:11] LABS: Partial Thromboplastin Ratio 5.1
[2018-11-19 11:15] LABS: Partial Thromboplastin Time 138.6 Seconds (21.0-31.0)
--- NOTE | 2018-11-19 13:04 | Cardiology Progress Note ---
Date of Service November 19, 2018 Assessment & Plan (1) Chest pain: Patient with multiple cardiovascular risks factors including known peripheral vascular/carotid artery disease, hypertension, hyperlipidemia, type 2 diabetes mellitus Patient seen on admission with symptomatic hypertension dyspnea and chest pressure possibly exacerbated by recent therapies. Patient has manifested dynamic ST segment changes as well as elevated troponin since admission She notes transient diaphoresis this morning Discussed above findings in detail the patient I recommend proceeding to diagnostic cardiac catheterization to delineate the degree and severity of underlying ischemic heart disease. Patient agreeable. Procedure and risks explained in detail with patient and informed consent obtained. Additional risks of coronary intervention also discussed (2) T wave inversion in EKG: (3) RBBB: (4) HTN (hypertension): (5) Bronchitis: Subjective Patient seen and examined chart medications telemetry reviewed. Patient intermittently nauseated this morning no further chest pain or discomfort. The pressures are improved but still hypertensive Patient noted troponin elevation overnight and begun on IV heparin No arrhythmias No bleeding difficulties, no neurologic complaint Physical Exam Physical Exam: General: NAD, AAO x3, well nourished. Overweight. HEENT: Normocephalic. Atraumatic. Conjunctiva pink, no scleral icterus. Neck: No carotid bruits, the carotid upstrokes are brisk. Well-healed left-sided carotid endarterectomy incision. No JVD. No HJR Heart: Regular normal S-1 and S-2 no S- 3 or S-4 gallop. No murmurs or rub appreciated. PMI is not displaced. No RV heave. Lungs: Scattered rhonchi bilateral. End expiratory wheezing noted. Abdomen: Normal bowel sounds. Soft. Nontender. No masses or organomegaly. No abdominal bruits. Extremities: No clubbing, cyanosis, or edema. Pulses: radial=2/4, Dorsalis pedis =3/4. Neuro: Cranial nerves grossly intact. No focal motor deficit. IV functioning appropriately but in the right wrist Results & Data Vital Signs (Past 12 Hours) Vital Signs Temp Pulse Pulse Resp BP Pulse Ox 11/19/18 11:27 36.6 C 68 18 163/87 H 98 11/19/18 08:00 74 11/19/18 07:38 37.0 C 73 20 176/99 H 99 11/19/18 07:20 73 14 88 L 11/19/18 04:16 36.8 C 64 18 136/80 96 11/19/18 02:48 68 20 97 11/19/18 01:04 71 Laboratory Results Laboratory Results - last 24 hr 11/18/18 11/18/18 11/18/18 13:57 14:00 14:00 WBC 9.75 RBC 4.69 Hgb 13.0 Hct 40.2 MCV 85.7 MCH 27.7 MCHC 32.3 RDW Std Deviation 45.9 RDW Coeff of Giselle 14.7 H Plt Count 232 MPV 10.7 H Immature Gran % (Auto) 0.2 Neut % (Auto) 67.2 Lymph % (Auto) 21.2 [place] % (Auto) 10.2 Eos % (Auto) 0.8 Baso % (Auto) 0.4 Immature Gran # (Auto) 0.02 Neut # (Auto) 6.55 H Lymph # (Auto) 2.07 [place] # (Auto) 0.99 H Eos # (Auto) 0.08 Baso # (Auto) 0.04 PT INR APTT PTT Ratio Sodium 136 Potassium 3.5 Chloride 101 Carbon Dioxide 25 Anion Gap 10.0 BUN 13 Creatinine 0.80 Est Cr Clr Drug Dosing Not Reportable Est GFR ( Amer) 89.7 Est GFR (Non-Af Amer) 77.4 BUN/Creatinine Ratio 16.3 Glucose 178 H POC Glucose 199 H Estimat Average Glucose Hemoglobin A1c POC Lactic Acid Tex Calcium 9.1 Total Bilirubin 0.7 AST 20 ALT 27 Alkaline Phosphatase 150 H CK-MB (CK-2) < 1.0 Troponin I < 0.015 Total Protein 8.6 H Albumin 3.8 Globulin 4.8 H Albumin/Globulin Ratio 0.8 L Triglycerides Cholesterol LDL Cholesterol, Calc VLDL Cholesterol, Calc HDL Cholesterol Cholesterol/HDL Ratio Lipase 115 Procalcitonin 11/18/18 11/18/18 11/18/18 14:00 14:23 17:19 WBC RBC Hgb Hct MCV MCH MCHC RDW Std Deviation RDW Coeff of Giselle Plt Count MPV Immature Gran % (Auto) Neut % (Auto) Lymph % (Auto) [place] % (Auto) Eos % (Auto) Baso % (Auto) Immature Gran # (Auto) Neut # (Auto) Lymph # (Auto) [place] # (Auto) Eos # (Auto) Baso # (Auto) PT 9.6 INR 0.9 APTT 23.6 PTT Ratio 0.9 Sodium Potassium Chloride Carbon Dioxide Anion Gap BUN Creatinine Est Cr Clr Drug Dosing Est GFR ( Amer) Est GFR (Non-Af Amer) BUN/Creatinine Ratio Glucose POC Glucose 185 H Estimat Average Glucose Hemoglobin A1c POC Lactic Acid Tex 1.64 Calcium Total Bilirubin AST ALT Alkaline Phosphatase CK-MB (CK-2) Troponin I Total Protein Albumin Globulin Albumin/Globulin Ratio Triglycerides Cholesterol LDL Cholesterol, Calc VLDL Cholesterol, Calc HDL Cholesterol Cholesterol/HDL Ratio Lipase Procalcitonin 11/18/18 11/18/18 11/19/18 19:20 20:19 01:11 WBC RBC Hgb Hct MCV MCH MCHC RDW Std Deviation RDW Coeff of Giselle Plt Count MPV Immature Gran % (Auto) Neut % (Auto) Lymph % (Auto) [place] % (Auto) Eos % (Auto) Baso % (Auto) Immature Gran # (Auto) Neut # (Auto) Lymph # (Auto) [place] # (Auto) Eos # (Auto) Baso # (Auto) PT INR APTT PTT Ratio Sodium Potassium Chloride Carbon Dioxide Anion Gap BUN Creatinine Est Cr Clr Drug Dosing Est GFR ( Amer) Est GFR (Non-Af Amer) BUN/Creatinine Ratio Glucose POC Glucose 142 H Estimat Average Glucose Hemoglobin A1c POC Lactic Acid Tex Calcium Total Bilirubin AST ALT Alkaline Phosphatase CK-MB (CK-2) Troponin I 0.250 H* 0.466 H* Total Protein Albumin Globulin Albumin/Globulin Ratio Triglycerides Cholesterol LDL Cholesterol, Calc VLDL Cholesterol, Calc HDL Cholesterol Cholesterol/HDL Ratio Lipase Procalcitonin 11/19/18 11/19/18 11/19/18 03:18 03:18 03:18 WBC 7.93 RBC 4.80 Hgb 13.3 Hct 41.3 MCV 86.0 MCH 27.7 MCHC 32.2 RDW Std Deviation 45.7 RDW Coeff of Giselle 14.5 Plt Count 249 MPV 10.5 H Immature Gran % (Auto) Neut % (Auto) Lymph % (Auto) [place] % (Auto) Eos % (Auto) Baso % (Auto) Immature Gran # (Auto) Neut # (Auto) Lymph # (Auto) [place] # (Auto) Eos # (Auto) Baso # (Auto) PT INR APTT PTT Ratio Sodium 133 L Potassium 3.7 Chloride 97 L Carbon Dioxide 31 Anion Gap 5.0 BUN 11 Creatinine 0.70 Est Cr Clr Drug Dosing 76.5 Est GFR ( Amer) 105.4 Est GFR (Non-Af Amer) 90.9 BUN/Creatinine Ratio 15.5 Glucose 104 H POC Glucose Estimat Average Glucose 143 Hemoglobin A1c 6.6 H POC Lactic Acid Tex Calcium 8.6 Total Bilirubin AST ALT Alkaline Phosphatase CK-MB (CK-2) Troponin I Total Protein Albumin Globulin Albumin/Globulin Ratio Triglycerides 190 H Cholesterol 159 LDL Cholesterol, Calc 79 VLDL Cholesterol, Calc 38 HDL Cholesterol 42 Cholesterol/HDL Ratio 4 Lipase Procalcitonin 11/19/18 11/19/18 11/19/18 03:18 03:18 07:34 WBC RBC Hgb Hct MCV MCH MCHC RDW Std Deviation RDW Coeff of Giselle Plt Count MPV Immature Gran % (Auto) Neut % (Auto) Lymph % (Auto) [place] % (Auto) Eos % (Auto) Baso % (Auto) Immature Gran # (Auto) Neut # (Auto) Lymph # (Auto) [place] # (Auto) Eos # (Auto) Baso # (Auto) PT INR APTT 39.6 H PTT Ratio 1.5 Sodium Potassium Chloride Carbon Dioxide Anion Gap BUN Creatinine Est Cr Clr Drug Dosing Est GFR ( Amer) Est GFR (Non-Af Amer) BUN/Creatinine Ratio Glucose POC Glucose 118 H Estimat Average Glucose Hemoglobin A1c POC Lactic Acid Tex Calcium Total Bilirubin AST ALT Alkaline Phosphatase CK-MB (CK-2) Troponin I Total Protein Albumin Globulin Albumin/Globulin Ratio Triglycerides Cholesterol LDL Cholesterol, Calc VLDL Cholesterol, Calc HDL Cholesterol Cholesterol/HDL Ratio Lipase Procalcitonin < 0.05 11/19/18 11/19/18 11/19/18 10:33 11:50 12:25 WBC RBC Hgb Hct MCV MCH MCHC RDW Std Deviation RDW Coeff of Giselle Plt Count MPV Immature Gran % (Auto) Neut % (Auto) Lymph % (Auto) [place] % (Auto) Eos % (Auto) Baso % (Auto) Immature Gran # (Auto) Neut # (Auto) Lymph # (Auto) [place] # (Auto) Eos # (Auto) Baso # (Auto) PT INR APTT 138.6 H* Pending PTT Ratio 5.1 Pending Sodium Potassium Chloride Carbon Dioxide Anion Gap BUN Creatinine Est Cr Clr Drug Dosing Est GFR ( Amer) Est GFR (Non-Af Amer) BUN/Creatinine Ratio Glucose POC Glucose 167 H Estimat Average Glucose Hemoglobin A1c POC Lactic Acid Tex Calcium Total Bilirubin AST ALT Alkaline Phosphatase CK-MB (CK-2) Troponin I Total Protein Albumin Globulin Albumin/Globulin Ratio Triglycerides Cholesterol LDL Cholesterol, Calc VLDL Cholesterol, Calc HDL Cholesterol Cholesterol/HDL Ratio Lipase Procalcitonin Diagnostic Findings Echocardiogram today 11/19/2018 Moderate left hypertrophy with preserved LV systolic function overall. There is hypokinesis the base and mid level of the posterior wall with otherwise preserved wall motion EF 60%. Grade 1 diastolic dysfunction noted, aortic sclerosis ECG Additional Comments: 19-NOV-2018 07:43:25 [facility]-D ROUTINE RETRIEVAL Normal sinus rhythm Left axis deviation Incomplete right bundle branch block Nonspecific ST abnormality Abnormal ECG When compared with ECG of 18-NOV-2018 20:29,Non- specific change in ST segment in Inferior leads T wave inversion no longer evident in Anterior leads (1) Chest pain Chest pain type: unspecified Qualified Code(s): R07.9 - Chest pain, u nspecified (2) HTN (hypertension) Hypertension type: essential hypertension Qualified Code(s): I10 - Essential (primary) hypertension
--- NOTE | 2018-11-19 13:09 | Hospitalist Progress Note ---
Date of Service November 19, 2018 Assessment & Plan (1) Chest pain: Chest pain still present rated as a 4 out of 10. She has acute bronchitis which may be contributing. Blood pressure is still somewhat elevated in the 160 systolic. She has a lot of stress ongoing in her life and is on multiple mood stabilizing medications. We spent a lot of time discussing the amount of drugs and the effects of polypharmacy. We will continue plan per cardiology regarding blood pressure control and chest pain management. Cardiac cath today revealed no obstructive coronary disease. (2) HTN (hypertension): Recent elevated prednisone dose likely contributing. Prednisone has been discontinued. Still slightly elevated at 160 systolic. She is dealing with an acute pulmonary illness and had some anxiety around the cardiac catheterization today. Continue current management. Appreciate cardiology recommendations. (3) Bronchitis: Prednisone was discontinued. Start scheduled DuoNeb therapy. Start azithromycin 500 mg x 3 days. Monitor closely for prolonged QT with daily EKG in the setting of citalopram use. (4) History of CVA (cerebrovascular accident): hx of hemorrhagic cva s/p L CEA no residual deficits continue ASA and statin (5) Carotid artery stenosis: continue ASA, Statin hx of L CEA, R total occlusion (6) T2DM (type 2 diabetes mellitus): A1C 6.5 08/18/18 hold metformin Novolog per protocol (7) Seizure disorder as sequela of cerebrovascular accident: stable, continue keppra (8) Hidradenitis suppurativa: Patient seen by dermatology on 11/16/2018 secondary to active cyst with hidradenitis She underwent I&D of left labial cyst She was started on rifampin and clindamycin in combination until November follow-up Since initiating above antibiotics patient has had GI upset, nausea, decreased appetite Admitting physician spoke with Derm Dr. Villa who agrees discontinuing oral antibiotics for now Will place on clindamycin gel to apply topically to labial lesions until seen by Derm in follow up November (9) CARON on CPAP: Cpap at HS (10) Depression: she is tearful. we discussed the importance of talk therapy and reassessing her need for these drugs. Recommended cutting elavil in half to start and continuing with this until followup with primary care followup (11) DVT prophylaxis: Lovenox Full Disposition: D/C to home when able Candi Corcoran DO [facility] Hospitalist Subjective Reports chest pain is 4/10 and feels tight When she gets up she reports lightheadedness She is tearful after we spent some time discussing her family stressors. She verbalized understanding on the effects of polypharmacy. She denies SOB but is coughing She reports some mucopurulent sputum Prednisone was stopped (started two days prior to arrival for acute bronchitis) She denies fevers or chills. She denies nausea but doesn't have an appetite Review of Systems Review of Systems: All systems reviewed & are unremarkable except as noted in HPI & below Physical Exam Physical Exam: CONSTITUTIONAL: WNWD, vitals as above, generally well- appearing EYES: EOMI bilaterally, PERRL, normal conjunctivae, no scleral icterus ENT: MMM RESPIRATORY: diffuse wheezing throughout, no respiratory distress CARDIOVASCULAR: regular rate and rhythm, S1 and 2 heard without murmurs, gallops or rubs, no JVD, no peripheral edema GASTROINTESTINAL: normal bowel sounds, soft, nontender, nondistended MUSCULOSKELETAL: strength 5/5 throughout, head is normocephalic and atraumatic SKIN: warm and dry NEUROLOGIC: CN 2-12 grossly intact, no gross focal deficits. PSYCHIATRIC: alert cooperative and oriented to person, place and time. Tearful. Results & Data Vital Signs (Past 12 Hours) Vital Signs Temp Pulse Pulse Resp BP Pulse Ox 11/19/18 11:27 36.6 C 68 18 163/87 H 98 11/19/18 08:00 74 11/19/18 07:38 37.0 C 73 20 176/99 H 99 11/19/18 07:20 73 14 88 L 11/19/18 04:16 36.8 C 64 18 136/80 96 11/19/18 02:48 68 20 97 Laboratory Results Short CBC 11/18/18 11/19/18 Range/Units 14:00 03:18 WBC 9.75 7.93 (4.8-10.8) K/uL Hgb 13.0 13.3 (12.0-16.0) g/dL Hct 40.2 41.3 (37-47) % Plt Count 232 249 (130-400) K/uL BMP 11/18/18 11/19/18 14:00 03:18 Sodium 136 133 L Potassium 3.5 3.7 Chloride 101 97 L Carbon Dioxide 25 31 BUN 13 11 Creatinine 0.80 0.70 Glucose 178 H 104 H Calcium 9.1 8.6 Cardiac Enzymes 11/18/18 11/18/18 11/19/18 Range/Units 14:00 19:20 01:11 CK-MB (CK-2) < 1.0 (0.5-3.6) ng/ml Troponin I < 0.015 0.250 H* 0.466 H* (0-0.045) ng/ml Liver Function 11/18/18 Range/Units 14:00 Total Bilirubin 0.7 (0.2-1) mg/dl AST 20 (15-37) U/L ALT 27 (12-78) U/L Alkaline Phosphatase 150 H (45-117) U/L Albumin 3.8 (3.4-5.0) gm/dl Medications Administered Current Inpatient Medications Acetaminophen (Tylenol) 650 mg PO Q4H PRN PRN Reason: Pain or Fever Stop: 12/18/18 17:18 Last Admin: 11/19/18 09:13 Dose: 650 mg Documented by: Al Hydrox/Mg Hydrox/Simethicone (Maalox) 15 ml PO Q4H PRN PRN Reason: Dyspepsia Stop: 12/18/18 17:18 Alprazolam (Xanax) 1 mg PO HS PRN PRN Reason: Sleep Stop: 12/18/18 18:32 Amitriptyline HCl (Elavil) 20 mg PO HS [facility] Stop: 12/18/18 20:59 Last Admin: 11/18/18 22:23 Dose: Not Given Documented by: Amlodipine Besylate (Norvasc) 2.5 mg PO [facility] Stop: 12/19/18 08:59 Last Admin: 11/19/18 09:10 Dose: 2.5 mg Documented by: Aspirin (Ecotrin Ectab) [facility] [place] [place] Stop: 12/19/18 08:59 Last Admin: 11/19/18 09:09 Dose: 81 mg Documented by: Atorvastatin Calcium (Lipitor) 80 mg PO QAM [facility] Stop: 12/19/18 08:59 Last Admin: 11/19/18 09:10 Dose: 80 mg Documented by: Carvedilol (Coreg) 6.25 mg PO BID [facility] Stop: 12/18/18 20:59 Last Admin: 11/19/18 09:10 Dose: 6.25 mg Documented by: Citalopram Hydrobromide (Celexa) 20 mg PO QAM [facility] Stop: 12/19/18 08:59 Last Admin: 11/19/18 09:10 Dose: 20 mg Documented by: Clindamycin Phosphate (Cleocin 2% Vag) 1 appln PV BID [facility] Stop: 11/28/18 20:59 Last Admin: 11/19/18 09:09 Dose: 1 appln Documented by: Dextrose (Dextrose 50%) 25 - 50 ml IV UD PRN; Protocol PRN Reason: Hypoglycemia Protocol Stop: 12/18/18 17:18 Glucagon (Glucagen) 1 mg SQ UD PRN; Protocol PRN Reason: Hypoglycemia Protocol Stop: 12/18/18 17:18 Glucose (Dex4 Glucose) 4 - 8 tabs PO UD PRN; Protocol PRN Reason: Hypoglycemia Protocol Stop: 12/18/18 17:18 Glucose (Glucose 40%) 15 - 30 gm PO UD PRN; Protocol PRN Reason: Hypoglycemia Protocol Stop: 12/18/18 17:18 Heparin Sodium/Dextrose (Heparin Sodium/Dextrose) 25,000 units in 500 mls @ 0 mls/hr IV .Q0M PINKY; Protocol Stop: 12/18/18 21:14 Last Titration: 11/19/18 11:41 Dose: 0 units/hr, 0 mls/hr Documented by: Sodium Chloride (Nss 1000ml) 1,000 mls @ 41 mls/hr IV .Q24H [facility] Stop: 12/20/18 00:00 Insulin Aspart (Novolog Flexpen) 0 units SC ACHS [facility] Stop: 12/18/18 17:18 Last Admin: 11/19/18 12:00 Dose: 1 units Documented by: Levalbuterol HCl (Xopenex 0.63 Mg/3 Ml Neb) 0.63 mg NEB Q6R PINKY Stop: 12/18/18 19:59 Last Admin: 11/19/18 07:15 Dose: 0.63 mg Documented by: Levetiracetam (Keppra) 750 mg PO BID [facility] Stop: 12/18/18 20:59 Last Admin: 11/19/18 09:10 Dose: 750 mg Documented by: Loratadine (Claritin) 10 mg PO QAM [facility] Stop: 12/19/18 08:59 Last Admin: 11/19/18 09:09 Dose: 10 mg Documented by: Magnesium Hydroxide (Milk Of Magnesia) 30 ml PO Q12H PRN PRN Reason: Constipation Stop: 12/18/18 17:18 Miscellaneous (Carbohydrates For Hypoglycemia) 15 - 30 gm PO UD PRN PRN Reason: Hypoglycemia Treatment Stop: 12/18/18 17:18 Nitroglycerin (Nitrostat) 0.4 mg SL UD PRN PRN Reason: Chest Pain Stop: 12/18/18 13:36 Last Admin: 11/18/18 14:25 Dose: 0.4 mg Documented by: Nitroglycerin (Nitro-Bid 2%) 1 inch EXT Q6H PINK[facility] Stop: 12/18/18 15:14 Last Admin: 11/19/18 09:41 Dose: 1 inch Documented by: Ondansetron HCl (Zofran) 4 mg IV Q6H PRN PRN Reason: Nausea Stop: 12/18/18 17:18 Last Admin: 11/18/18 20:17 Dose: 4 mg Documented by: Pantoprazole Sodium (Protonix) 40 mg PO QAM [facility] Stop: 12/19/18 08:59 Last Admin: 11/19/18 09:10 Dose: 40 mg Documented by: Polyethylene Glycol (Miralax Powder Packet) 17 gm PO DAILY PRN PRN Reason: Constipation Stop: 12/18/18 17:18 Ranitidine HCl (Zantac) 150 mg PO BID PRN PRN Reason: Heartburn Stop: 12/18/18 18:32 (1) Chest pain Chest pain type: unspecified Qualified Code(s): R07.9 - Chest pain, unspe cified (2) HTN (hypertension) Hypertension type: essential hypertension Qualified Code(s): I10 - Essential (primary) hypertension
[2018-11-19 13:15] LABS: Partial Thromboplastin Ratio 2.7
[2018-11-19] MEDS ORDERED: MIDAZOLAM HCL 1 MG/ML 2ML VIAL ONE (13:25)
[2018-11-19] MEDS ORDERED: HEPARIN (PORCINE) 1000 UNIT/ML 10 ML (CATH LAB USE ONLY) ONE (13:25)
[2018-11-19] MEDS ORDERED: NiCARDipine HCL INJ 2.5 MG/ML 10 ML AMP ONE (13:25)
[2018-11-19] MEDS ORDERED: fentaNYL citrate 100 MCG/2 ML VIAL ONE (13:25)
[2018-11-19] MEDS ORDERED: NITROGLYCERIN/D5W 100MCG/ML 20ML SYR ONE (13:26)
--- NOTE | 2018-11-19 13:53 | Pre Anesthesia Assessment ---
Date of Service November 19, 2018 Pre Sedation Assessment Vital Signs Temp Pulse Pulse Resp BP BP BP 11/19/18 11:27 36.6 C 68 18 163/87 H 11/19/18 08:00 74 11/19/18 07:38 37.0 C 73 20 176/99 H 11/19/18 07:20 73 14 11/19/18 04:16 36.8 C 64 18 136/80 11/19/18 02:48 68 20 11/19/18 01:04 71 11/18/18 23:00 36.6 C 76 20 146/86 H 11/18/18 22:10 79 18 11/18/18 19:39 36.6 C 73 18 126/69 11/18/18 19:28 77 20 11/18/18 17:19 36.5 C 77 18 158/87 H 11/18/18 16:31 60 14 145/78 H 11/18/18 16:00 69 17 181/106 H 11/18/18 15:31 72 21 185/105 H 11/18/18 15:16 68 15 181/91 H 11/18/18 15:02 68 15 152/76 H 11/18/18 14:31 69 12 178/113 H 11/18/18 14:30 68 15 11/18/18 14:25 73 15 186/101 H 11/18/18 14:16 70 13 187/98 H 11/18/18 14:15 70 16 11/18/18 14:02 68 18 11/18/18 14:01 71 16 188/119 H 11/18/18 14:00 68 13 11/18/18 13:58 63 16 187/94 H 11/18/18 13:54 63 23 Pulse Ox 11/19/18 11:27 98 11/19/18 08:00 11/19/18 07:38 99 11/19/18 07:20 88 L 11/19/18 04:16 96 11/19/18 02:48 97 11/19/18 01:04 11/18/18 23:00 97 11/18/18 22:10 95 11/18/18 19:39 100 11/18/18 19:28 96 11/18/18 17:19 96 11/18/18 16:31 96 11/18/18 16:00 96 11/18/18 15:31 93 11/18/18 15:16 96 11/18/18 15:02 93 11/18/18 14:31 93 11/18/18 14:30 93 11/18/18 14:25 95 11/18/18 14:16 93 11/18/18 14:15 93 11/18/18 14:02 96 11/18/18 14:01 95 11/18/18 14:00 85 L 11/18/18 13:58 87 L 11/18/18 13:54 Cardiovascular + regular rate and + regular rhythm + S1 normal and + S2 normal; no murmur no JVD Respiratory + audible wheezes + diminished lung sounds Pre-Sedation Airway Assessment Smoking Status: Former smoker Mallampati Class: II NPO Status Date of Last Intake of Fluids: 11/19/18 Time of Last Intake of Fluids: 08:00 Last Oral Intake of Fluids Comment: Sips with medsa Date of Last Intake of Solid Food: 11/18/18 Procedure Planning Contraindications for Sedation: none Current Medications Reviewed: Yes Notes The planned sedation has been discussed with the patient. Informed Consent was obtained. I have identified the patient, determined the appropriateness of sedation and have assessed the patient immediately prior to the procedure. All medicine(s) and interventions are by my order.
[2018-11-19] MEDS ORDERED: SODIUM CHLORIDE 0.9% 500 ML IV PRN (14:46)
--- NOTE | 2018-11-19 14:46 | Cardiac Catheterization ---
Cardiac Cath Procedure: Brief Procedure Date November 19, 2018 Pre-Procedure Diagnosis Pre-Procedure Diagnosis: Non STEMI AUC Score AUC Score: 7 Post-Procedure Diagnosis Post-Procedure Diagnosis: Mild CAD Procedure(s) Performed Procedure(s) Performed: Coronary Angiography and Left Heart Cath Staff Sonographer Roly Orlando MD Respiratory Therapist(s) Trinity Aguilar Estimated Blood Loss Estimated Blood Loss: <15cc Medication(s) Medication(s): Fentanyl (12.5 mcg IV), Lidocaine 1% (Local infiltration access site), Nicardipine (300 mcg intra-arterial after arterial sheath insertion and prior to removing) and Versed (1 mg IV) Preliminary Findings Right dominant coronary anatomy. Mild coronary atherosclerosis without obstruction no significant narrowing 30% proximal LAD and diagonal Systolic hypertension LV end-diastolic pressure 15 Recommendations Recommendations: Medical Therapy and/or Counseling Specimens Specimens: None Fluids (cc crystalloids) Fluids (cc crystalloids): 80 Anesthesia Start time: 1401, end time: 1440 Procedural Complication(s) None Disposition PCU
[2018-11-19] MEDS ORDERED: CARVEDILOL 3.125 MG TAB PO SCH (15:00)
--- NOTE | 2018-11-19 15:00 | Cardiac Catheterization ---
Cardiac Cath Procedure Full Procedure Date November 19, 2018 Pre-Procedure Diagnosis Pre-Procedure Diagnosis: Non STEMI AUC Score AUC Score: 7 Post-Procedure Diagnosis Post-Procedure Diagnosis: Mild CAD (Nonobstructive) Procedure(s) Performed Procedure(s) Performed: Coronary Angiography and Left Heart Cath [employer] Officer Roly Orlando MD Patient Case Manager(s) Trinity Aguilar Estimated Blood Loss Estimated Blood Loss: <15cc Medication(s) Medication(s): Fentanyl (12.5 mcg IV), Lidocaine 1% (Local infiltration access site), Nicardipine (300 mcg intra-arterial after arterial sheath insertion and prior to removing) and Versed (1 mg IV) Summary of Findings Right dominant coronary anatomy. Mild coronary atherosclerosis without obstruction no significant narrowing 30% proximal LAD and diagonal Left main: Normal length and caliber no disease Left anterior descending: Type III vessel giving rise to a large diagonal branch and septal branch early in its proximal portion and coursing to terminate beyond the apex. With tortuous mid vessel. Within the left anterior descending there is diffuse mild irregularities with a 30% narrowing at the origin of the first diagonal and extending into the origin of the first diagonal no other obstructive disease noted Left circumflex large but nondominant is rise to a small high marginal branch small second marginal branch and obtuse marginal which reaches well to the apex. Along the AV groove it continues as a single posterior lateral branch. There is mild luminal irregularities in left circumflex Right coronary artery: Large and dominant distribution giving rise to 2 small right ventricular branches and acute marginal branch at the AV groove along posterior descending artery along the AV groove to posterior ventricular branches with distal branches reaching to the apex. 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 Echocardiogram demonstrated subtle hypokinesis of the posterior basal wall segment CAD Presenation: Non STEMI Anginal Classification: CCS III Heart Failure: No Cardiogenic Shock within 24 Hours: No Cardiac Arrest within 24 Hours: No Imaging Studies Past 6 Months: Yes Stress Studies Past 6 Months: No Standard Exercise Test: No Stress Echocardiogram: No Stress Testing w/SPECT MPI: No Cardiac CTA: No Coronary Anatomy Dominant: Right Left Main (% Stenosis): Normal LAD (% Stenosis): Proximal (30% with mild calcification) D1 (% Stenosis): Ostial (30%) Circumflex (% Stenosis): Normal OM1 (% Stenosis): Normal OM2 (% Stenosis): Normal OM3 (% Stenosis): Normal (Large caliber trifurcating vessel) L PL1 (% Stenosis): Normal RCA (% Stenosis): Normal R PDA (% Stenosis): Normal R PL1 (% Stenosis): Normal R PL2 (% Stenosis): Normal Diagnostic Physicians Name: Roly Orlando MD Closure Device Percutaneous Entry Location: Radial Closure Device: Angio-Seal Recommendations: Medical Therapy and/or Counseling
[2018-11-19] MEDS ORDERED: CARVEDILOL 3.125 MG TAB PO STA (15:01)
--- NOTE | 2018-11-19 15:22 | Cardiology Progress Note ---
Date of Service November 19, 2018 Subjective He is referred to cardiac catheterization for patient seen post procedure tolerated procedure well. Study demonstrated mild coronary atherosclerosis only no obstructive disease Plan treat hypertension underlying lung disease. Carvedilol increased at 9.375 mg p.o. twice daily amlodipine increased to 2.5 mg twice daily. Low threshold for addition of CARLENE, will review records as to indications for absence Results & Data Vital Signs (Past 12 Hours) Vital Signs Temp Pulse Pulse Resp BP Pulse Ox 11/19/18 11:27 36.6 C 68 18 163/87 H 98 11/19/18 08:00 74 11/19/18 07:38 37.0 C 73 20 176/99 H 99 11/19/18 07:20 73 14 88 L 11/19/18 04:16 36.8 C 64 18 136/80 96
[2018-11-19] MEDS ORDERED: ALBUT/IPRATROP 3MG/0.5MG NEB 3 ML VIAL NEB PRN (18:33)
[2018-11-19] MEDS: ALBUT/IPRATROP 3MG/0.5MG NEB 3 ML VIAL NEB SCH ×2 (19:02→22:03)
[2018-11-19] MEDS: CARVEDILOL 3.125 MG TAB PO SCH (20:31)
[2018-11-19] MEDS: AMLODIPINE BESYLATE 5 MG TAB PO SCH (20:32)
[2018-11-19] MEDS: AZITHROMYCIN 250 MG TAB PO SCH (20:32)
[2018-11-19] MEDS: AMITRIPTYLINE HCL 10 MG TAB PO SCH (20:32)
[2018-11-20] MEDS ORDERED: SODIUM CHLORIDE 0.9% 1000ML 1,000 ML IV SCH
[2018-11-20] MEDS: ONDANSETRON INJ 2 MG/ML 2 ML VIAL IV PRN (01:50)
[2018-11-20] MEDS: NITROGLYCERIN 2% OINTMENT 30GM TUBE EXT SCH ×2 (04:20→09:32)
[2018-11-20] MEDS: ACETAMINOPHEN 325 MG TAB PO PRN ×2 (05:30→23:48)
[2018-11-20 06:28] LABS: Hematocrit (blood only) 48.8 % (37-47); Mean Corpuscular Hgb Conc 32.8 g/dL (32-36); Mean Corpuscular Volume 86.8 fL (80-100); Mean Platelet Volume 10.7 fL (7.4-10.4); Platelet Count 332 K/uL (130-400); RDW Coefficient of Variation 14.7 % (11.5-14.5); RDW Standard Deviation 46.9 fL (36.4-46.3); Red Blood Count 5.62 M/uL (4.2-5.4); White Blood Count 13.48 K/uL (4.8-10.8)
[2018-11-20 07:01] LABS: BUN Creatinine Ratio 17.7 (10-20); Calcium 9.6 mg/dl (8.5-10.1); Creatinine Clr Calc Pharmacy 47.5 ml/min; Est GFR (African American) 60.4; Est GFR (Non-African American) 52.1; Potassium 3.6 mmol/L (3.5-5.1)
[2018-11-20] MEDS: ALBUT/IPRATROP 3MG/0.5MG NEB 3 ML VIAL NEB SCH ×4 (07:25→19:09)
[2018-11-20] MEDS: AMLODIPINE BESYLATE 5 MG TAB PO SCH ×2 (08:11→20:11)
[2018-11-20] MEDS: PANTOprazole 40 MG TAB PO SCH (08:11)
[2018-11-20] MEDS: CITALOPRAM 20 MG TAB PO SCH (08:11)
[2018-11-20] MEDS: levETIRAcetam 250 MG TAB PO SCH ×2 (08:11→20:10)
[2018-11-20] MEDS: ATORVASTATIN 40 MG TAB PO SCH (08:12)
[2018-11-20] MEDS: ASPIRIN 81 MG ECTAB PO SCH (08:12)
[2018-11-20] MEDS: LORATADINE 10 MG TAB PO SCH (08:12)
[2018-11-20] MEDS: CLINDAMYCIN PHOS 2% VAG 7 APPLN/40 GM TUBE PV SCH ×2 (08:13→20:09)
[2018-11-20] MEDS: CARVEDILOL 3.125 MG TAB PO SCH (08:13)
[2018-11-20] MEDS: ENOXAPARIN INJ 40 MG/0.4 ML SYR SQ SCH (08:13)
[2018-11-20] MEDS: INSULIN ASPART 100 UNITS/ML 3 ML PEN SC SCH ×4 (08:15→20:13)
--- NOTE | 2018-11-20 10:25 | Cardiology Progress Note ---
Date of Service November 20, 2018 Assessment & Plan (1) Chest pain: Diagnostic cardiac catheterization performed yesterday without significant coronary obstruction. Recommend treating underlying lung issues and hypertension. Carvedilol will be increased to 12.5 mill grams p.o. twice daily (2) T wave inversion in EKG: (3) RBBB: (4) HTN (hypertension): (5) Bronchitis: Patient on therapies. If intermittent flushing episodes persist would consider CT of chest Subjective Patient seen and examined, chart medications telemetry reviewed. Patient still with cough and rhonchorous breath sounds. Intermittent flushing. No further chest pain or discomfort. Blood pressure under better control Physical Exam ENMT: Mallampati Class: II Respiratory: + audible wheezes Auscultation: + diminished lung sounds and + rhonchi (Few scattered with cough) Cardiovascular: Rate/Rhythm: regular rate and regular rhythm Heart Sounds: normal S1 and normal S2; no murmur Vessels: radial pulses present (Right radial access site without issue); no JVD Gastrointestinal (Abdomen): normal bowel sounds, soft, nontender, no hepatosplenomegaly Musculoskeletal: no cyanosis or clubbing, extremities motor strength 5/5 Psychiatric: A+Ox3, euthymic affect Results & Data Vital Signs (Past 12 Hours) Vital Signs Temp Pulse Resp BP BP Pulse Ox 11/20/18 07:25 79 18 90 11/20/18 07:07 36.6 C 83 16 114/70 93 11/20/18 04:00 37.2 C 84 18 100/63 90 11/19/18 23:42 37.0 C 80 17 122/80 90 Laboratory Results Laboratory Results - last 24 hr 11/19/18 11/19/18 11/19/18 10:33 11:50 12:25 WBC RBC Hgb Hct MCV MCH MCHC RDW Std Deviation RDW Coeff of Giselle Plt Count MPV APTT 138.6 H* 72.0 H* PTT Ratio 5.1 2.7 Activ Coag Time Kaolin Sodium Potassium Chloride Carbon Dioxide Anion Gap BUN Creatinine Est Cr Clr Drug Dosing Est GFR ( Amer) Est GFR (Non-Af Amer) BUN/Creatinine Ratio Glucose POC Glucose 167 H Calcium 11/19/18 11/19/18 11/19/18 14:24 16:23 20:29 WBC RBC Hgb Hct MCV MCH MCHC RDW Std Deviation RDW Coeff of Giselle Plt Count MPV APTT PTT Ratio Activ Coag Time Kaolin 147 H Sodium Potassium Chloride Carbon Dioxide Anion Gap BUN Creatinine Est Cr Clr Drug Dosing Est GFR ( Amer) Est GFR (Non-Af Amer) BUN/Creatinine Ratio Glucose POC Glucose 139 H 154 H Calcium 11/20/18 11/20/18 11/20/18 05:45 05:45 07:12 WBC 13.48 H RBC 5.62 H Hgb 16.0 Hct 48.8 H MCV 86.8 MCH 28.5 MCHC 32.8 RDW Std Deviation 46.9 H RDW Coeff of Giselle 14.7 H Plt Count 332 MPV 10.7 H APTT PTT Ratio Activ Coag Time Kaolin Sodium 135 L Potassium 3.6 Chloride 97 L Carbon Dioxide 26 Anion Gap 11.0 BUN 20 H D Creatinine 1.11 D Est Cr Clr Drug Dosing 47.5 Est GFR ( Amer) 60.4 Est GFR (Non-Af Amer) 52.1 BUN/Creatinine Ratio 17.7 Glucose 118 H POC Glucose 107 H Calcium 9.6 (1) Chest pain Chest pain type: unspecified Qualified Code(s): R07.9 - Chest pain, unspecified (2) HTN (hypertension) Hypertension type: essential hypertension Qualified Code(s): I10 - Essential (primary) hypertension
--- NOTE | 2018-11-20 17:14 | Hospitalist Progress Note ---
Date of Service November 20, 2018 Assessment & Plan (1) Chest pain: Presented to ED with CP + hypertensive urgency. EKG demonstrated NSR with incomplete RBBB, ST depression I, V2-V6, inverted T- waves anterolaterally. Cardiology consulted. Serum troponin as high as 0.466. Echo showed mild concentric LVH, mild focal hypokinesis posterior wall. Cardiac cath performed by Dr. Orlando on 11/19/18 did not show any significant coronary artery disease. Ongoing risk-factor modification. (2) Hypertension: Presented to ED with hypertensive urgency, BP as high as 188/119. Medications titrated. Continue carvedilol and amlodipine. (3) Hypertensive urgency: As discussed above. (4) Bronchitis: Recent course of prednisone. Continue azithromycin and nebs. (5) CARON on CPAP: Continue CPAP. (6) History of CVA (cerebrovascular accident): Continue aspirin and management of lipids, DM, hypertension. (7) PAD (peripheral artery disease): Continue aspirin and statin. (8) Diabetes mellitus type 2 with complications: DM type 2, associated with carotid artery disease and peripheral vascular disease. Usually well-controlled with metformin. Hgb A1C was 6.6. Hold metformin during hospital stay. NovoLog coverage per protocol. FBS today = 107. (9) Dyslipidemia: Continue atorvastatin. (10) DVT prophylaxis: SQ enoxaparin. Ambulate. (11) Discharge planning issues: Anticipated discharge to home. Family Medicine follow-up with Dr. Garay. Subjective Recheck for multiple problems. Patient seen in their room around 11:10. Cardiac catheterization performed yesterday and there was no significant obstructive coronary disease. Feeling better. No further chest pain. Persistent congested nonproductive cough, wheezing, and some dyspnea. Review of Systems: Constitutional- no fever. Cardiac- as noted above. Pulmonary- as noted above. GI- no nausea, vomiting, diarrhea, melena, hematochezia. - no urinary symptoms. Otherwise, as noted above. Physical Exam Constitutional: no acute distress Respiratory: no respiratory distress Auscultation: + rhonchi and + wheezes Cardiovascular: Rate/Rhythm: regular rate and regular rhythm Heart Sounds: no gallop, no murmur and no cardiac rub Vessels: no JVD Extremities: no calf tenderness and no edema Gastrointestinal (Abdomen): normal bowel sounds, soft, nontender, no hepatosplenomegaly Skin: no rashes, warm and dry Psychiatric: Orientation: alert and oriented x 3 Results & Data Vital Signs (Past 12 Hours) Vital Signs Temp Pulse Resp BP BP Pulse Ox 11/20/18 15:48 75 18 93 11/20/18 15:28 36.6 C 73 18 125/81 94 11/20/18 13:59 79 18 101/68 90 11/20/18 12:12 36.5 C 80 18 120/81 90 11/20/18 11:16 77 18 90 11/20/18 07:25 79 18 90 11/20/18 07:07 36.6 C 83 16 114/70 93 Laboratory Results Laboratory Results - last 24 hr 11/19/18 11/19/18 11/20/18 16:23 20:29 05:45 WBC 13.48 H RBC 5.62 H Hgb 16.0 Hct 48.8 H MCV 86.8 MCH 28.5 MCHC 32.8 RDW Std Deviation 46.9 H RDW Coeff of Giselle 14.7 H Plt Count 332 MPV 10.7 H Sodium Potassium Chloride Carbon Dioxide Anion Gap BUN Creatinine Est Cr Clr Drug Dosing Est GFR ( Amer) Est GFR (Non-Af Amer) BUN/Creatinine Ratio Glucose POC Glucose 139 H 154 H Calcium 11/20/18 11/20/18 11/20/18 05:45 07:12 11:23 WBC RBC Hgb Hct MCV MCH MCHC RDW Std Deviation RDW Coeff of Giselle Plt Count MPV Sodium 135 L Potassium 3.6 Chloride 97 L Carbon Dioxide 26 Anion Gap 11.0 BUN 20 H D Creatinine 1.11 D Est Cr Clr Drug Dosing 47.5 Est GFR ( Amer) 60.4 Est GFR (Non-Af Amer) 52.1 BUN/Creatinine Ratio 17.7 Glucose 118 H POC Glucose 107 H 131 H Calcium 9.6 11/20/18 16:36 WBC RBC Hgb Hct MCV MCH MCHC RDW Std Deviation RDW Coeff of Giselle Plt Count MPV Sodium Potassium Chloride Carbon Dioxide Anion Gap BUN Creatinine Est Cr Clr Drug Dosing Est GFR ( Amer) Est GFR (Non-Af Amer) BUN/Creatinine Ratio Glucose POC Glucose 115 H Calcium (1) Chest pain Chest pain type: unspecified Qualified Code(s): R07.9 - Chest pain, unspecified
[2018-11-20] MEDS: AZITHROMYCIN 250 MG TAB PO SCH (17:26)
[2018-11-20] MEDS: CARVEDILOL 12.5 MG TAB PO SCH (20:09)
[2018-11-20] MEDS: AMITRIPTYLINE HCL 10 MG TAB PO SCH (20:10)
[2018-11-21] MEDS: ALBUT/IPRATROP 3MG/0.5MG NEB 3 ML VIAL NEB SCH ×3 (07:26→14:08)
[2018-11-21] MEDS: levETIRAcetam 250 MG TAB PO SCH (08:16)
[2018-11-21] MEDS: CLINDAMYCIN PHOS 2% VAG 7 APPLN/40 GM TUBE PV SCH (08:16)
[2018-11-21] MEDS: ENOXAPARIN INJ 40 MG/0.4 ML SYR SQ SCH (08:16)
[2018-11-21] MEDS: CARVEDILOL 12.5 MG TAB PO SCH (08:16)
[2018-11-21] MEDS: ATORVASTATIN 40 MG TAB PO SCH (08:19)
[2018-11-21] MEDS: LORATADINE 10 MG TAB PO SCH (08:19)
[2018-11-21] MEDS: AMLODIPINE BESYLATE 5 MG TAB PO SCH (08:19)
[2018-11-21] MEDS: CITALOPRAM 20 MG TAB PO SCH (08:19)
[2018-11-21] MEDS: ASPIRIN 81 MG ECTAB PO SCH (08:20)
[2018-11-21] MEDS: PANTOprazole 40 MG TAB PO SCH (08:20)
[2018-11-21] MEDS: INSULIN ASPART 100 UNITS/ML 3 ML PEN SC SCH ×2 (09:06→14:42)
--- NOTE | 2018-11-21 14:42 | Hospitalist Progress Note ---
Date of Service November 21, 2018 Assessment & Plan (1) Chest pain: Presented to ED with CP + hypertensive urgency. EKG demonstrated NSR with incomplete RBBB, ST depression I, V2-V6, inverted T- waves anterolaterally. Cardiology consulted. Serum troponin as high as 0.466. Echo showed mild concentric LVH, mild focal hypokinesis posterior wall. Cardiac cath performed by Dr. Orlando on 11/19/18 did not show any significant coronary artery disease. Ongoing risk-factor modification. (2) Hypertension: Presented to ED with hypertensive urgency, BP as high as 188/119. Medications titrated. Carvedilol dose increased to 12.5 mg BID. Continue amlodipine. (3) Hypertensive urgency: As discussed above. (4) Bronchitis: Recent course of prednisone. Received azithromycin with improvement. Discharge on azithromycin to complete course of therapy. (5) CARON on CPAP: Continue CPAP. (6) History of CVA (cerebrovascular accident): Continue aspirin and management of lipids, DM, hypertension. (7) PAD (peripheral artery disease): Continue aspirin and statin. (8) Diabetes mellitus type 2 with complications: DM type 2, associated with carotid artery disease and peripheral vascular disease. Usually well-controlled with metformin. Hgb A1C was 6.6. Hold metformin during hospital stay. NovoLog coverage per protocol. FBS today = 106. (9) Dyslipidemia: Continue atorvastatin. (10) DVT prophylaxis: SQ enoxaparin. Ambulate. (11) Discharge planning issues: Discharge to home. Family Medicine follow-up with Dr. Garay. Subjective Recheck for multiple problems. Pt seen in her room around 14:30. Her was visiting. Feels better. No further chest pain. Cough improved. No dyspnea on exertion. No fever. No diarrhea. Physical Exam Constitutional: no acute distress Respiratory: no respiratory distress Auscultation: + wheezes (improved, mild) Cardiovascular: Rate/Rhythm: regular rate and regular rhythm Heart Sounds: no gallop, no murmur and no cardiac rub Vessels: no JVD Extremities: no calf tenderness and no edema Gastrointestinal (Abdomen): normal bowel sounds, soft, nontender, no hepatosplenomegaly Skin: no rashes, warm and dry Psychiatric: Orientation: alert and oriented x 3 Results & Data Vital Signs (Past 12 Hours) Vital Signs Temp Pulse Resp BP Pulse Ox 11/21/18 14:08 68 18 95 11/21/18 11:14 78 18 97 11/21/18 07:26 81 18 94 11/21/18 07:23 36.9 C 79 18 124/75 94 Laboratory Results Laboratory Results - last 24 hr 11/20/18 11/21/18 11/21/18 20:01 07:42 11:34 POC Glucose 132 H 106 H 88 (1) Chest pain Chest pain type: unspecified Qualified Code(s): R07.9 - Chest pain, unspecified
--- NOTE | 2018-11-21 19:19 | Discharge Summary ---
Date of Service Date of Admission: 11/18/18 Date of Discharge: 11/21/18 Admission HPI Per Admitting Provider This is a 63-year-old female who has a significant past medical history of hemorrhagic CVA in 2010, T2DM, HTN, HLD, CAORN on CPAP, PVD, carotid artery stenosis status post left CEA, seizure disorder secondary to CVA, GERD, history of tobacco abuse who presents to [facility] ED secondary to chest pain, headache, ill feeling since 11 AM. is at bedside. At approximately 11 AM today patient developed frontal headache, left-sided chest pain, ill feeling, nausea, diaphoresis. Chest pain was left-sided, nonradiating, nothing made worse or better including deep breaths or movement, rated 6 out of 10. Currently states chest pain is absent after administration of nitro. Still nauseated and had episode of emesis. Denies hematemesis or hemoptysis. Also she has been having upper respiratory symptoms specifically a cough for approximately 1 week. Initially cough was productive but now is dry and hoarse. She does have associated wheezing. She denies any lightheadedness, dizziness, change in vision, change in hearing, fever, chills, shortness of breath or palpitations, hemoptysis, diarrhea, dysuria, increased urgency or frequency with urination. Overall for the past 2 days she has noted some GI upset including nausea, dyspepsia and decreased appetite. According to patient was prescribed outpatient prednisone taper secondary to cough on 11/16 due to inability to see provider. She took a 50 mg dose x2 yesterday and a 40 mg dose this morning. Also of note she was recently seen by dermatology secondary to lesion in the labia. She had an I&D and was diagnosed with hidradenitis suppurativa and was prescribed rifampin and clindamycin to be taken as prescribed until November follow-up starting on 11/16. Admission Exam Per Admitting Provider Gen: Ill-appearing, female, appears older than stated age, NAD but vomited, sitting up in bed, pleasant but flat affect, conversing easily Head: Normocephalic, Atraumatic Eyes: Sclera normal, no conjunctival injection, PERRLA, EOMI ENT: Gross hearing intact, normal pharynx, mucous membranes dry Neck: supple, no adenopathy, No JVD, no bruit, Resp: Clear to auscultation b/l, prolonged expiratory phase with bibasilar expiratory wheezing, no rales rhonchi. Normal insp/exp effort, no accessory muscle use CV: Regular rate, regular rhythm, no murmur, rub, gallop, or ectopy Abd: +BS x 4, soft, nontender, nondistended Musculoskeletal: moves extremities active rom x 4, strength intact, good marketing strategy lead strength Extremities: No edema bilaterally Skin: warm, moist, no rash, negative turgor, cap refill < 2sec + left labial lesion x 2 with open pore, no surrounding erythema or drainage, nontender to touch Neuro: Alert and oriented x 3, speech normal, good mood/affect, cran nerve 2-12 intact grossly : deferred Principal Diagnosis chest pain OTHER ACUTE / NEW DIAGNOSES: hypertensive urgency bronchitis Discharge Data Allergies Allergy/AdvReac Type Severity Reaction Status Date / Time Cephalosporins Allergy Intermediate RASH AND Verified 11/20/18 07:06 HIVES Sulfa (Sulfonamide Allergy Unknown "SULFA Verified 11/18/18 16:02 Antibiotics) DRUGS": UNKNOWN prednisone AdvReac Intermediate Significant Verified 11/18/18 19:04 HTN, nausea doxycycline AdvReac Mild DIARREHA Unverified 11/20/18 07:06 Penicillins AdvReac Unknown Unknown Unverified 11/18/18 16:02 Consultations 11/18/18 15:05 ED Decision to Admit Stat 11/18/18 17:19 Consult Cardiology Routine Procedures Performed Operation Date: 11/19/18 10:40 Actual Procedures p Cath, Left with Cors and Vent - Roly Orlando MD s Cineradiography w/Routine Exam - Roly Orlando MD Ordered Studies 11/19/18 10:39 CL Cath Imgs for PACS use only Routine Hospital Course (1) Chest pain: Presented to ED with CP + hypertensive urgency. EKG demonstrated NSR with incomplete RBBB, ST depression I, V2-V6, inverted T- waves anterolaterally. Cardiology consulted. Serum troponin as high as 0.466. Echo showed mild concentric LVH, mild focal hypokinesis posterior wall. Cardiac cath performed by Dr. Orlando on 11/19/18 did not show any significant coronary artery disease. Ongoing risk-factor modification. (2) Hypertension: Presented to ED with hypertensive urgency, BP as high as 188/119. Medications titrated. Carvedilol dose increased to 12.5 mg BID. Continue amlodipine. (3) Hypertensive urgency: As discussed above. (4) Bronchitis: Recent course of prednisone. Received azithromycin with improvement. Discharge on azithromycin to complete course of therapy. (5) CARON on CPAP: Continue CPAP. (6) History of CVA (cerebrovascular accident): Continue aspirin and management of lipids, DM, hypertension. (7) PAD (peripheral artery disease): Continue aspirin and statin. (8) Diabetes mellitus type 2 with complications: DM type 2, associated with carotid artery disease and peripheral vascular disease. Usually well-controlled with metformin. Hgb A1C was 6.6. Held metformin during hospital stay. Received NovoLog coverage per protocol. FBS day of discharge was 106. Discharge on usual regimen. (9) Dyslipidemia: LDL-c was 79. Continue atorvastatin. (10) DVT prophylaxis: Received SQ enoxaparin. Ambulating. (11) Discharge planning issues: Discharged to home. Family Medicine follow-up with Dr. Garay. Total Time Total Time Spent Total Time Spent (In Minutes): 40 Discharge Plan Discharge Items Patient Disposition: Home - Self-Care Reason For Visit: chest pain Discharge Diagnosis: chest pain- you did not have a heart attack elevated blood pressure bronchitis Condition: Good Discharge Goals: Improve disease control Activity: As commented below Activity Comment: gradually increase activity as tolerated Non-emergency contact: Primary Care Provider and Hospitalist Call non-emergency contact if: you have any medication questions, your symptoms worsen and you have a fever Follow-up/Referrals: Anthony Garay MD [Primary Care Provider] - (11/23/2018 2:00 PM Anthony aGray III, MD) Diet: Carb Consistent or DM2 and Heart Healthy Addtl Provider Instructions: MEDICATION CHANGES: Take azithromycin (Zithromax) for bronchitis. Carvedilol (Coreg) dose increased to 12.5 mg twice a day for better control of blood pressure. Dr. Rivera said that it is OK to stop clindamycin and rifampin. SUMMARY OF TEST RESULTS: Chest x-ray did not show any pneumonia. Heart catheterization did not show any bad blockage in coronary arteries. Hemoglobin A1C was 6.6. This tells us that your blood sugars have been well controlled. LDL cholesterol was 79. Atorvastatin (Lipitor) is doing a good job keeping your cholesterol down. OTHER INSTRUCTIONS: Seek medical attention if you have: * temperature above 101 * chest pain or trouble breathing * abdominal pain, nausea, vomiting * diarrhea, dark stools or bloody stools * any unanswered questions or concerns Call 911 if symptoms are severe. Please take good care of yourself. Call if you have any questions or problems. My cell # is [phone]. You can also reach a [facility] hospitalist on duty at [facility] 24 hours a day by calling [phone]. Prescriptions: New carvedilol 12.5 mg Tablet 12.5 mg PO BID Qty: 60 RF: 1 azithromycin 250 mg tablet 250 mg PO DAILY 3 Days Qty: 3 RF: 0 Continued atorvastatin 80 mg Tablet 80 mg PO QAM RF: 0 alprazolam 1 mg Tablet 1 mg PO HS PRN (Reason: SLEEP) RF: 0 prednisone 5 mg Tablet 5 mg PO QAM RF: 0 amlodipine 2.5 mg Tablet 2.5 mg PO QAM RF: 0 aspirin 81 mg Tablet,Delayed Release (Dr/Ec) 81 mg PO QAM RF: 0 citalopram 20 mg Tablet 20 mg PO QAM RF: 0 amitriptyline 10 mg Tablet 20 mg PO HS RF: 0 pantoprazole 40 mg Tablet,Delayed Release (Dr/Ec) 40 mg PO QAM RF: 0 ranitidine HCl 150 mg Tablet 150 mg PO BID PRN (Reason: HEARTBURN) RF: 0 levetiracetam 750 mg Tablet 750 mg PO BID RF: 0 triamcinolone acetonide 0.1 % Lotion 1 applic TOPICAL BID RF: 0 polyethylene glycol 3350 [Miralax] 17 gram/dose Powder 17 g PO DAILY PRN (Reason: CONSTIPATION) RF: 0 albuterol sulfate 90 mcg/actuation Hfa Aerosol Inhaler 2 puff INHALATION QID RF: 0 metformin 500 mg Tablet Extended Release 24 Hr 500 mg PO QAM RF: 0 loratadine 10 mg Tablet 10 mg PO QAM RF: 0 clindamycin phosphate 1 % Lotion 1 applic TOPICAL DAILY RF: 0 Shingrix Adjuvant Component-PF Suspension 0.5 ml IM DIRECTED RF: 0 fluticasone furoate 50 mcg/actuation Blister With Device 50 mcg INHALATION DAILY RF: 0 Discontinued carvedilol 6.25 mg Tablet 6.25 mg PO BID RF: 0 clindamycin HCl 300 mg Capsule 300 mg PO TID RF: 0 rifampin 300 mg Capsule 300 mg PO BID RF: 0 Stand-Alone Forms: [facility] Discharge Orders: Discharge Order (Routine); Ordered 11/21/18 Ordered By: Anthony Killian Admission Data Admit Date/Time: 11/19/18 19:04 Attending Provider: Anthony Killian Admit Provider: Erin Irizarry Primary Care Provider: Anthony Garay Other Providers: Reggie Gonzalez Sabrina M. ; Erin Irizarry ; Kalia Rush Service: Medical Other Interventions: Discharge Summary Assessment (RN) Last Done: 11/21/18 15:42 DC Date/Time DO NOT enter until pt leaves facility: 11/21/18 17:27
--- NOTE | 2018-11-23 10:48 | Coding Query ---
CODING QUERY To promote full compliance with coding requirements relating to patient care, provider participation is requested in all cases of fire systems inspector uncertainty. Please assist us with the question(s) below: Coding Question(s): Patient admitted with chest pain. Cardiac Cath done by = minor coronary atherosclerosis, Serum trop elevated .466 . Cardiac Cath report mentions NSTEMI. Please document, if known or suspected, the etiology of the patient's chest pain. Thanks for your help! Joe Iqbal, [facility] Physician's Response(s): Probably did not have non-STEMI. Coronary disease was minimal. Principal Diagnosis: "that condition established after study, to be chiefly responsible for occasioning the admission of the patient to the hospital for care." Co-Existing Principal Diagnosis: "when two or more diagnoses equally meet the criteria for principal diagnosis as determined by the circumstances of admission, diagnostic work up, and/or therapy provided, and the Alphabetic Index, Tabular List, or another coding guideline does not provide sequencing direction, any one of the diagnoses may be sequenced first." "When the physician has documented what appears to be a current diagnosis in the body of the record, but has not included the diagnosis in the final diagnostic statement, the physician should be asked whether the diagnosis should be added." (Source Coding [facility] 2 QTR90. p3-4) MODED
== END 2018-11-21 17:27 | disposition home or self-care (01) | DRG 287 ==
LOC: 2N 13:19 → ED 13:19 → SUATTDRO 15:59 → 2N 16:51 → 2S 11-19 15:25 → SUATTDRO 11-19 19:04 → 2W 11-20 11:54
DX: G47.33 Obstructive sleep apnea (adult) (pediatric); Z88.2 Allergy status to sulfonamides; Z87.891 Personal history of nicotine dependence; E11.51 Type 2 diabetes mellitus with diabetic peripheral angiopathy without gangrene; I16.0 Hypertensive urgency; Z79.84 Long term (current) use of oral hypoglycemic drugs; I10 Essential (primary) hypertension; E78.5 Hyperlipidemia, unspecified; F32.9 Major depressive disorder, single episode, unspecified; I25.10 Atherosclerotic heart disease of native coronary artery without angina pectoris; J20.9 Acute bronchitis, unspecified; L73.2 Hidradenitis suppurativa; I44.7 Left bundle-branch block, unspecified; R07.9 Chest pain, unspecified; I69.998 Other sequelae following unspecified cerebrovascular disease; Z88.0 Allergy status to penicillin